=== PATIENT | female | born 1980 | race Caucasian/White ===

== ENCOUNTER 2018-01-22 02:32 | Inpatient (IN) | payer OTHER, MEDICAID, SELFPAY ==
[2018-01-22] VITALS (20 sets, daily range): BP systolic 110–163; BP diastolic 49–100; PULSE 92–128; RESP 14–22; TEMP 36.4–37; O2SAT 97–100; BMI 137.2
--- NOTE | 2018-01-22 02:51 | DI.RAD.S_ITS ---
PROCEDURE: XR CHEST 1V INDICATIONS: elevated blood sugars, concern for DKA TECHNIQUE: One view of the chest was acquired. COMPARISON: [facility], CR, XR CHEST 1V, 08/09/2017, 19:26. FINDINGS: Surgical changes and devices: None. Lungs and pleura: No pleural effusions or pneumothorax. Lungs are clear. Mediastinum: Mediastinal contours appear normal. Heart size is normal. Bones and chest wall: No suspicious bony lesions. Overlying soft tissues appear unremarkable. IMPRESSION: No acute pulmonary process. Dictated by: Heidy Bonner M.D. on 01/22/2018 at 7:57 Approved by: Heidy Bonner M.D. on 01/22/2018 at 7:58
--- NOTE | 2018-01-22 02:56 | PC.NURSE ---
Attempted PIV, unsuccessful. Second RN to attempt.
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
--- NOTE | 2018-01-22 03:19 | PC.NURSE ---
Dr Lucas aware that nursing staff has been unsuccessful in PIV insertion. Lab to attempt to obtain blood specimens.
[2018-01-22 03:51] LABS: pH VBG 7.21 (7.31-7.41)
[2018-01-22 03:52] LABS: HCO3 VBG 10 mmol/L (24-28); Oxygen Saturation VBG 79 % (70-75); PCO2 VBG 23.9 mmHg (45-50); PO2 VBG 51 mmHg (35-45); Total CO2 VBG 10 mmol/L (24-29)
--- NOTE | 2018-01-22 03:53 | PC.NURSE ---
Called outside picc placement company, awaiting for call back with
[2018-01-22 03:57] LABS: Basophils Percent Auto 0.8 % (0-2); Eosinophils Percent Auto 0.4 % (2-4); Hematocrit 38.6 % (36-46); Hemoglobin 11.1 g/dL (12.0-16.0); Lymphocytes Percent Auto 16.6 % (25-40); Mean Corpuscular HGB Conc 28.8 % (30-36); Mean Corpuscular Hemoglobin 24.3 PG (26-34); Mean Corpuscular Volume 84.4 fL (80-100); Monocytes Percent Auto 5.4 % (3-14); Neutrophils Absolute Auto 8200 /uL (3000-5900); Neutrophils Percent Auto 76.8 % (50-75); Platelet Count 470 X10^3/uL (150-400); Red Blood Cell Count 4.58 X10^6/uL (4.0-5.2); Red Cell Distribution Width 18.3 % (11.6-14.8); White Blood Cell Count 10.7 X10^3/uL (4.5-11.0)
[2018-01-22 03:58] LABS: Add Manual Diff / Slide Review SLIDE REVIEW
[2018-01-22 04:05] LABS: Alanine Aminotransferase 133 IU/L (9-52); Albumin 5.1 g/dL (3.5-5.0); Albumin Globulin Ratio 1.6 (1.0-2.8); Alkaline Phosphatase 292 U/L (38-126); Aspartate Aminotransferase 106 IU/L (14-36); BUN Creatinine Ratio 31.4 (6-22); Bilirubin Total 0.4 mg/dL (0.2-1.3); Blood Urea Nitrogen 22 mg/dL (7-17); Calcium 9.9 mg/dL (8.4-10.2); Chloride 96 mmol/L (98-107); Estimated Glomerular Filt Rate > 60.0 mL/min (>60); Globulin 3.1 g/dL (1.7-4.1); HEMOLYSIS < 15 (0-50); Magnesium 2.4 mg/dL (1.6-2.3); Potassium 5.1 mmol/L (3.4-5.1); Sodium 135 mmol/L (137-145); Total Protein 8.2 g/dL (6.3-8.2)
[2018-01-22 04:08] LABS: Ketones (Beta-Hydroxybutyrate) 10.54 mmol/L (<0.27)
--- NOTE | 2018-01-22 04:10 | PC.NURSE ---
Pt had episode of incontinence. Linen changed.
[2018-01-22 04:20] LABS: Carbon Dioxide 6 mmol/L (22-32); Glucose 725 mg/dL (70-100)
[2018-01-22 04:22] LABS: Anisocytosis 2+
--- NOTE | 2018-01-22 04:56 | PC.NURSE ---
Second call placed to [facility] for line placement. No ETA given at this time. Awaiting call back.
--- NOTE | 2018-01-22 05:02 | PC.NURSE ---
Unable to complete med rec at this time. Pt very drowsy and unable to stay awake.
--- NOTE | 2018-01-22 05:06 | PC.NURSE ---
IV nurse will be here in an 1.5-2 hours. ETA 6:30-7:00.
[2018-01-22] MEDS: INSULIN ASPART 100 UNIT/ML 10ML VIAL 20 UNIT SUBCUT (05:11)
[2018-01-22] MEDS: ONDANSETRON 4 MG/2 ML INJ IV (06:03)
--- NOTE | 2018-01-22 06:03 | PC.NURSE ---
Pt vomited large amount of liquid with partially digested food on floor after PO challenge. Pt was medicated with 4 mg Zofran in L glute.
--- NOTE | 2018-01-22 06:49 | PC.NURSE ---
Linens changed for incontinence. Pt appeared to be even more obtunded. Attempted to stimulate pt with capillary pressure, no response. Attempted supraoribtal pressure next, no response. Pt finally responded to sternal stimulation. Pt began flailing arms and called this nurse a cunt. Informed pt that behavior and calling staff names is not appropriate.
--- NOTE | 2018-01-22 06:57 | PC.NURSE ---
PICC RN is here to attempt line placement.
[2018-01-22] MEDS: LORazepam 2 MG/ML SYRINGE IV ×4 (07:45→23:29)
--- NOTE | 2018-01-22 07:49 | PC.NURSE ---
precision able to insert right upper arm picc line, blood drawn for repeat labs. pt remain alert and awake, requesting water to drink, wet sponge provided, pt wanting more.
[2018-01-22 08:05] LABS: BUN Creatinine Ratio 32.9 (6-22); Blood Urea Nitrogen 23 mg/dL (7-17); Carbon Dioxide 11 mmol/L (22-32); Chloride 105 mmol/L (98-107); Estimated Glomerular Filt Rate > 60.0 mL/min (>60); Glucose 360 mg/dL (70-100); HEMOLYSIS < 15 (0-50); Potassium 4.6 mmol/L (3.4-5.1); Sodium 145 mmol/L (137-145)
[2018-01-22] MEDS: SODIUM CHLORIDE 0.9% 1,000 ML 1000 ML IV (08:36)
--- NOTE | 2018-01-22 08:40 | PC.NURSE ---
Addendum entered by Sarahi Mccarthy R.N. 01/22/18 13:19: 1000 pt agitated and cussing. incontinent of urine and refused to be cleaned up. demanding ice and water. 1200 pt pleasant, apologizing for earlier behavior. dilaudid given for toe pain and ativan IV given. 1315 pt now somulent, calm. HOB elevated 30 degrees. denies need to urinate. sinus tach, HR 110. right 3rd toe wound cultured and sent. Original Note: Dr. Avalos in to see pt. pt breathing heavy, speaks in broken sentences. occasional jerky movements. double lumen PICC ELOISE. labs drawn. NS 1 liter iv bolus infusing. Ativan 2mg IV given for anxiety. pt sedated now, awakens to touch and name called. reports extreme pain right 3rd toe, and mouth dryness.
[2018-01-22] MEDS: INSULIN REGULAR, HUMAN 100 UNIT in SODIUM CHLORIDE 0.9% 100 ML 6 ML IV (08:54)
[2018-01-22] MEDS: SODIUM CHLORIDE 0.9% 1,000 ML 150 ML IV (08:54)
--- NOTE | 2018-01-22 09:02 | PM.DS.1 ---
History of Present Illness Chief complaint: Dizziness/high BS Discharge Providers Date of admission: 01/22/18 04:54 Consults: 01/22/18 08:34 Consult to Dietitian, Adult Routine Comment: smokes meth Reason For Exam: malnutrition Discharge provider: Iliana Avalos MD Exam Vital Signs (past 8 hours): - 01/22/18 02:43 01/22/18 04:00 01/22/18 05:03 Temperature 98.6 F Pulse Rate 128 H 128 H 124 H Respiratory Rate 20 21 20 Blood Pressure 111/49 L Blood Pressure [Left Arm] 140/85 138/82 Pulse Oximetry 100 99 98 01/22/18 06:00 01/22/18 07:35 Temperature 97.8 F Pulse Rate 122 H 115 H Respiratory Rate 22 Blood Pressure 110/70 Blood Pressure [Left Arm] 163/100 H Pulse Oximetry 98 98 Oxygen Delivery Method Room Air Objective Labs Result Diagrams: 01/22/18 03:47 01/22/18 07:45 Labs: Laboratory Results - last 24 hr 01/22/18 01/22/18 01/22/18 03:40 03:47 03:47 WBC 10.7 RBC 4.58 Hgb 11.1 L Hct 38.6 MCV 84.4 MCH 24.3 L MCHC 28.8 L RDW 18.3 H Plt Count 470 H Neut % (Auto) 76.8 H Lymph % (Auto) 16.6 L [place] % (Auto) 5.4 Eos % (Auto) 0.4 L Baso % (Auto) 0.8 Neut # (Auto) 8200 H RBC Morphology See below Anisocytosis 2+ H VBG pH 7.21 L VBG pCO2 23.9 L VBG pO2 51 H VBG HCO3 10 L VBG Total CO2 10 L VBG O2 Saturation 79 H VBG Base Excess -18.0 L Sodium 135 L Potassium 5.1 Chloride 96 L Carbon Dioxide 6 L* BUN 22 H Creatinine 0.70 Estimated GFR > 60.0 BUN/Creatinine Ratio 31.4 H Glucose 725 H* Calcium 9.9 Phosphorus 4.0 Magnesium 2.4 H Total Bilirubin 0.4 AST 106 H ALT 133 H Alkaline Phosphatase 292 H Total Protein 8.2 Albumin 5.1 H Globulin 3.1 Albumin/Globulin Ratio 1.6 Ketones 10.54 H 01/22/18 07:45 WBC RBC Hgb Hct MCV MCH MCHC RDW Plt Count Neut % (Auto) Lymph % (Auto) [place] % (Auto) Eos % (Auto) Baso % (Auto) Neut # (Auto) RBC Morphology Anisocytosis VBG pH VBG pCO2 VBG pO2 VBG HCO3 VBG Total CO2 VBG O2 Saturation VBG Base Excess Sodium 145 D Potassium 4.6 Chloride 105 Carbon Dioxide 11 L BUN 23 H Creatinine 0.70 Estimated GFR > 60.0 BUN/Creatinine Ratio 32.9 H Glucose 360 H D Calcium 10.0 Phosphorus Magnesium Total Bilirubin AST ALT Alkaline Phosphatase Total Protein Albumin Globulin Albumin/Globulin Ratio Ketones Discharge Plan Discharge Med Rec/Prescriptions Prescriptions: No Action metoclopramide HCl 10 MG tablet 10 mg PO TIDAC PRNQty: 90 RF: 1 insulin glargine [Lantus Solostar U-100 Insulin] 100 UNIT/1 ML insulin pen 70 unit SQ BID Qty: 0 RF: 0 methocarbamol 500 MG tablet 500 - 1,000 mg PO Q6H Qty: 30 RF: 3 fluticasone 16 GM spray,suspension 0.05 mg Intranasal Q DAY PRN PRNQty: 1 RF: 5 Syringes: 1cc Insulin Syringes with [place] SQ 5XD Qty: 100 RF: 3 duloxetine 20 MG capsule,delayed release(DR/EC) 40 mg PO QDAY Qty: 0 RF: 0 insulin aspart U-100 [Novolog U-100 Insulin aspart] 100 UNIT/1 ML solution 10 unit SQ TIDCC Qty: 0 RF: 0 sulfamethoxazole-trimethoprim 800 MG/160 MG tablet 2 tab PO BID Qty: 40 RF: 0 clonidine HCl 0.1 MG tablet 0.2 mg PO BID Qty: 60 RF: 0 gabapentin [Neurontin] 600 MG tablet 600 mg PO TID Qty: 90 RF: 0 oxycodone 5 MG tablet 10 mg PO QIDP PRNQty: 100 RF: 0 insulin glargine [Lantus Solostar U-100 Insulin] 100 unit/mL (3 mL) insulin pen 70 unit SUBCUT BEDTIME Qty: 3 RF: 0 Discharge Data Attending Provider: Iliana Avalos Admit Date/Time: 01/22/18 04:54 Quality VTE Deep Vein Thrombosis/Pulmonary Embolism Present on Admission: No
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
[2018-01-22] MEDS: ENOXAPARIN 40 MG/0.4 ML SYRINGE SUBCUT (10:01)
[2018-01-22] MEDS: CLINDAMYCIN 300 MG in DEXTROSE 5 % IN WATER 50 ML 104 ML IV ×2 (10:01→17:00)
[2018-01-22] MEDS: POTASSIUM CHLORIDE 20 MEQ in SODIUM CHLORIDE 0.9% 250 ML 130 ML IV (11:09)
[2018-01-22] MEDS: NICOTINE 7 MG PATCH TOP (11:10)
[2018-01-22] MEDS: DEXTROSE 5%-0.45% NS 1,000 ML 150 ML IV (11:11)
[2018-01-22] MEDS: MEPERIDINE 25 MG/ML SYRINGE IV ×2 (11:43→18:48)
--- NOTE | 2018-01-22 11:59 | CM.DPNOTE ---
DCP Chart Review Patient is a 37 year old female who was admitted to ICU today 01/22/18 for DKA. Pt has [facility] and [facility] for insurance and her PCP is not listed. EMR was reviewed. Per MD, pt may have right toe cellulitis and currently receiving IV-Abx and Ativan for positive UDS for methamphetamines. SW attempted to meet bedside with pt and per RN pt was given a dose of Ativan and not alert and oriented enough to participate in bedside assessment. SW observed pt who was not very agreeable with staff care and began to swear at RN for her NPO status. Pt groggy and still incontinent. Per RN, pt informed MD at time of admit that she is still homeless. Pt has a long hx of homelessness with sometimes a tent or camp in [place] where she has stayed. At last admit, pt declined any community resources including CD treatment and support. Plan: SW to follow closely for bedside assessment when pt more medically appropriate to participate in goal directed discussion regarding housing, CD treatment, and further community resources. YNES Khan
[2018-01-22 12:21] LABS: Blood Urea Nitrogen 21 mg/dL (7-17); Calcium 8.4 mg/dL (8.4-10.2); Carbon Dioxide 17 mmol/L (22-32); Chloride 109 mmol/L (98-107); Estimated Glomerular Filt Rate > 60.0 mL/min (>60); Glucose 164 mg/dL (70-100); HEMOLYSIS < 15 (0-50); Potassium 4.2 mmol/L (3.4-5.1); Sodium 145 mmol/L (137-145)
[2018-01-22] MEDS: METOCLOPRAMIDE 10 MG/2 ML INJ IV (12:46)
[2018-01-22] MEDS: HYDROMORPHONE 0.5 MG INJ IV ×3 (12:54→21:21)
[2018-01-22] MEDS: DEXTROSE 10 % IN WATER 1,000 ML 56 ML IV (14:40)
[2018-01-22 16:52] LABS: Blood Urea Nitrogen 18 mg/dL (7-17); Calcium 8.2 mg/dL (8.4-10.2); Carbon Dioxide 21 mmol/L (22-32); Chloride 107 mmol/L (98-107); Estimated Glomerular Filt Rate > 60.0 mL/min (>60); Glucose 133 mg/dL (70-100); HEMOLYSIS < 15 (0-50); Potassium 3.9 mmol/L (3.4-5.1); Sodium 142 mmol/L (137-145)
--- NOTE | 2018-01-22 19:11 | PC.NURSE ---
The patient asked for her personal belongings due to requesting to leave against medical advance. Upon giving her the bag with her clothing in it, she retrieved cookie from the bag, ate cookie, and took a syringe from her clothing. I asked her to place it back in the bag, notified nurse. Patient reluctant to put the syringe down. Proceeded to use needle from syringe to poke a scab on her upper left thigh.
[2018-01-22 20:12] LABS: BUN Creatinine Ratio 37.5 (6-22); Blood Urea Nitrogen 15 mg/dL (7-17); Calcium 8.1 mg/dL (8.4-10.2); Carbon Dioxide 21 mmol/L (22-32); Chloride 104 mmol/L (98-107); Estimated Glomerular Filt Rate > 60.0 mL/min (>60); Glucose 173 mg/dL (70-100); HEMOLYSIS < 15 (0-50); Potassium 3.1 mmol/L (3.4-5.1); Sodium 140 mmol/L (137-145)
[2018-01-22] MEDS: POTASSIUM CHLORIDE 40 MEQ in SODIUM CHLORIDE 0.9% 500 ML 130 ML IV (21:10)
[2018-01-22] MEDS: DEXTROSE 5%-0.45% NS 1,000 ML 84 ML IV (22:30)
--- NOTE | 2018-01-22 22:36 | PC.NURSE ---
Pt remains on insulin gtt per protocol. Anion gap currently 14, next lab draw at midnight. BG 112. Per , notify MD when gap <12 in order to transition to subq insulin. Pt verbally aggressive with staff all shift, name calling and throwing cups of ice, yelling into the halls. Threatening to leave AMA because I haven't eaten in 2 fing days. When pt had her belongings she found a half cookie in her purse which she consumed. Nursing educated on diet restrictions. Nursing cont to reinforce criteria that must be met in order to advance diet. Pt also grabbed insulin needle out of her belongings and proceeded to poke at a lesion on her leg in order to remove the pus. This aligner typewriter asked pt to stop to which she replied no, she then bent the needle off the syringe and asked us to hand her the sharps container so she could dispose of it. Staff having to continually remind pt of diet criteria. Called Dr. Olivier in order to discuss case, received telephone order that pt could have broth and water if requested. Supplied pt with chicken broth and water as requested. Also c/o pain 10/10 to right 3rd toe, given PRN pain medication as ordered with little stated relief although pt nodding off to sleep throughout shift.
[2018-01-23] VITALS (7 sets, daily range): BP systolic 142–151; BP diastolic 81–105; PULSE 93–103; RESP 14–20; TEMP 36.8–37.1; O2SAT 97
[2018-01-23] MEDS: CLINDAMYCIN 300 MG in DEXTROSE 5 % IN WATER 50 ML 104 ML IV ×2 (01:17→08:29)
[2018-01-23 01:20] LABS: Blood Urea Nitrogen 9 mg/dL (7-17); Calcium 7.1 mg/dL (8.4-10.2); Carbon Dioxide 21 mmol/L (22-32); Chloride 109 mmol/L (98-107); Estimated Glomerular Filt Rate > 60.0 mL/min (>60); Glucose 117 mg/dL (70-100); HEMOLYSIS < 15 (0-50); Potassium 3.8 mmol/L (3.4-5.1); Sodium 137 mmol/L (137-145)
--- NOTE | 2018-01-23 02:14 | PC.NURSE ---
Addendum entered by Kacey Ge R.N. 01/23/18 07:04: Verbal abuse continues. Pt throwing everything on her tray on the floor and at staff. She requests food multiple times. Educated patient on her most recent blood sugar of 353 and her diet order. Pt agitated stating I'll get it my fucking self then! Dr. Olivier aware of blood sugar, one time dose of Novolog 5 units given SQ per orders and will resume ACHS CBG checks and SSI. Original Note: 2320 Pt yelling for staff from room. Pt asking for a sandwich and jello. Reminded pt she is NPO but can have broth and water. Disgruntled, she accepted broth. Immediately after chugging broth pt c/o that her cup is empty and when informed she just drank it she called this RN a cunt. Boundaries set, informed that name calling will not be tolerated. Pt states this is bullshit. Pt assessed, VSS, insulin GTT continued at 0.5 units/hour. 0000 CBG 136, no change to insulin GTT. Pt continues with name calling and verbal abuse. Staff continues to set boundaries. Continues to ask for food despite knowledge of diet order, states staff is being unfair. Incontinent of large amount of stool, angry that staff took time to put on PPE prior to entering room stating I'll just sit here in my own shit then! You bitches are no help. While providing incontinence care pt throwing two stool soiled wipes onto floor. Asked pt not to throw things. Refused gown, refused blankets. Refusing vitals signs and continuous pulse oximetry. 0200 CBG 129, Anion gap 7. Corrected Ca+ 6.06. Dr. Olivier made aware. Orders to stop insulin GTT, start pts regular Novolog SSI, Regular diet and a change in IVF to 1/2NS @ 85mL/hour. Will check CBG every 2 hours. Pt currently asleep in NAD. Will monitor closely.
[2018-01-23] MEDS: SODIUM CHLORIDE 0.45% 1,000 ML 85 ML IV (02:50)
[2018-01-23] MEDS: HYDROMORPHONE 0.5 MG INJ IV ×3 (05:39→11:50)
[2018-01-23] MEDS: LORazepam 2 MG/ML SYRINGE IV (05:39)
[2018-01-23 06:09] LABS: Add Manual Diff / Slide Review NO; Basophils Percent Auto 0.8 % (0-2); Eosinophils Percent Auto 1.5 % (2-4); Hematocrit 31.6 % (36-46); Hemoglobin 9.9 g/dL (12.0-16.0); Lymphocytes Percent Auto 20.8 % (25-40); Mean Corpuscular HGB Conc 31.2 % (30-36); Mean Corpuscular Hemoglobin 24.1 PG (26-34); Mean Corpuscular Volume 77.4 fL (80-100); Monocytes Percent Auto 7.5 % (3-14); Neutrophils Absolute Auto 5500 /uL (3000-5900); Neutrophils Percent Auto 69.4 % (50-75); Platelet Count 380 X10^3/uL (150-400); Red Blood Cell Count 4.09 X10^6/uL (4.0-5.2); Red Cell Distribution Width 17.4 % (11.6-14.8); White Blood Cell Count 7.9 X10^3/uL (4.5-11.0)
[2018-01-23 06:10] LABS: Alanine Aminotransferase 126 IU/L (9-52); Albumin 3.2 g/dL (3.5-5.0); Albumin Globulin Ratio 1.3 (1.0-2.8); Alkaline Phosphatase 235 U/L (38-126); Aspartate Aminotransferase 185 IU/L (14-36); Bilirubin Total 0.4 mg/dL (0.2-1.3); Blood Urea Nitrogen 9 mg/dL (7-17); Calcium 7.4 mg/dL (8.4-10.2); Carbon Dioxide 18 mmol/L (22-32); Chloride 106 mmol/L (98-107); Estimated Glomerular Filt Rate > 60.0 mL/min (>60); Globulin 2.5 g/dL (1.7-4.1); Glucose 350 mg/dL (70-100); HEMOLYSIS < 15 (0-50); Potassium 4.3 mmol/L (3.4-5.1); Sodium 138 mmol/L (137-145); Total Protein 5.7 g/dL (6.3-8.2)
[2018-01-23] MEDS: INSULIN ASPART 100 UNIT/ML INSULN PEN SUBCUT ×5 (06:35→20:59)
[2018-01-23] MEDS: INSULIN GLARGINE 100 UNIT/ML 3ML PEN 15 UNIT SUBCUT (08:06)
[2018-01-23] MEDS: ENOXAPARIN 40 MG/0.4 ML SYRINGE SUBCUT (08:07)
[2018-01-23] MEDS: NICOTINE 7 MG PATCH TOP (08:08)
--- NOTE | 2018-01-23 08:14 | P.PN_ITS ---
Subjective Date Patient Seen: 01/23/18 Time Patient Seen: 08:09 Interval history: FOLLOW UP ON DKA Patient seen at bedside. She is very mean and agitated. Does not want to talk to staff. Throwing things. She was transitioned to PO diet yesterday. Wants food and refuses to talk until she gets food. She was able to tell me she is on Lantus 70U BID and sliding scale. This morning BG elevated at 350. Exam Vital Signs (past 8 hours): - 01/23/18 01:00 01/23/18 02:58 01/23/18 04:00 Temperature Pulse Rate 98 H 102 H 103 H Respiratory Rate 14 16 20 Blood Pressure 146/89 H Pulse Oximetry 97 01/23/18 05:00 01/23/18 06:00 01/23/18 08:02 Temperature 98.3 F Pulse Rate 93 H 97 H 97 H Respiratory Rate 16 20 16 Blood Pressure 151/90 H 146/81 H 147/105 H Pulse Oximetry 97 97 97 Oxygen Delivery Method Room Air Oxygen Flow Rate 0 Narrative Exam Narrative: General: Disheveled, angry HEENT: PERRLA bilaterally Neck: Supple, no LAD, no JVD CV: Regular rate rhythm, no murmurs, no gallops Respiratory: Clear to auscultation bilaterally no wheezing, no rhonchi, no crackles GI: Positive bowel sounds in all quadrants, no organomegaly, soft nontender Musculoskeletal: Patient moves all extremities without difficulty. Amputation of 1/2 of 1st right foot digit Skin: Right 3rd foot digit erythematous, swollen, tender to palpation. 1 cm purulent ulcer noted on the bottom side of the digit Neuro: No focal deficit Psych: Angry. Requesting food Objective Labs Result Diagrams: 01/23/18 05:45 01/23/18 05:45 Labs: Laboratory Results - last 24 hr 01/22/18 01/22/18 01/22/18 08:00 12:00 16:30 WBC RBC Hgb Hct MCV MCH MCHC RDW Plt Count Neut % (Auto) Lymph % (Auto) [place] % (Auto) Eos % (Auto) Baso % (Auto) Neut # (Auto) Sodium 145 142 Potassium 4.2 3.9 Chloride 109 H 107 Carbon Dioxide 17 L 21 L BUN 21 H 18 H Creatinine 0.50 L 0.40 L Estimated GFR > 60.0 > 60.0 BUN/Creatinine Ratio 42.0 H 45.0 H Glucose 164 H D 133 H Calcium 8.4 8.2 L Total Bilirubin AST ALT Alkaline Phosphatase Total Protein Albumin Globulin Albumin/Globulin Ratio Nasal Screen MRSA (PCR) Positive for mrsa H 01/22/18 01/23/18 01/23/18 19:45 01:00 05:45 WBC 7.9 RBC 4.09 Hgb 9.9 L Hct 31.6 L MCV 77.4 L D MCH 24.1 L MCHC 31.2 RDW 17.4 H Plt Count 380 Neut % (Auto) 69.4 Lymph % (Auto) 20.8 L [place] % (Auto) 7.5 Eos % (Auto) 1.5 L Baso % (Auto) 0.8 Neut # (Auto) 5500 Sodium 140 137 Potassium 3.1 L 3.8 Chloride 104 109 H Carbon Dioxide 21 L 21 L BUN 15 9 Creatinine 0.40 L 0.30 L Estimated GFR > 60.0 > 60.0 BUN/Creatinine Ratio 37.5 H 30.0 H Glucose 173 H 117 H Calcium 8.1 L 7.1 L Total Bilirubin AST ALT Alkaline Phosphatase Total Protein Albumin Globulin Albumin/Globulin Ratio Nasal Screen MRSA (PCR) 01/23/18 05:45 WBC RBC Hgb Hct MCV MCH MCHC RDW Plt Count Neut % (Auto) Lymph % (Auto) [place] % (Auto) Eos % (Auto) Baso % (Auto) Neut # (Auto) Sodium 138 Potassium 4.3 Chloride 106 Carbon Dioxide 18 L BUN 9 Creatinine 0.50 L Estimated GFR > 60.0 BUN/Creatinine Ratio 18.0 Glucose 350 H D Calcium 7.4 L Total Bilirubin 0.4 AST 185 H ALT 126 H Alkaline Phosphatase 235 H Total Protein 5.7 L Albumin 3.2 L Globulin 2.5 Albumin/Globulin Ratio 1.3 Nasal Screen MRSA (PCR) Assessment & Plan Plan: Assessment/Plan Narrative: 1. Diabetic ketoacidosis -likely due to poor management of diabetes with insulin, as patient is homeless -blood glucose this morning elevated at 354 and AG is up to 14 -patient was transitioned to PO diet yesterday and refuses insulin drip -will start Lantus 15U BID for now and give medium dose sliding scale -repeat BMP Q4H -continue IVF 2. Methamphetamine abuse -monitor for withdrawals, treat symptomatically -Ativan as needed, Zofran as needed 3. Homelessness -social work consult Patient wishes to be full code 20 min spent evaluating in providing care for this patient Quality VTE Deep Vein Thrombosis/Pulmonary Embolism Present on Admission: No
[2018-01-23] MEDS: ACETAMINOPHEN 325 MG TABLET 650 MG PO ×4 (08:56→23:00)
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
[2018-01-23] MEDS: MEPERIDINE 25 MG/ML SYRINGE IV (09:51)
--- NOTE | 2018-01-23 10:14 | CM.DANOTE ---
Discharge Planning/Care Management DCP/Cont Attempted bedside assessment with patient: Patient had just finished eating breakfast. DINING ROOM HOST/HOSTESS introduced self and role and patient stated she did not want to talk to DINING ROOM HOST/HOSTESS and requested DINING ROOM HOST/HOSTESS leave room. Reviewed EMR: patient currently on IV abx for cellulites on foot. Patient's blood glucose remains elevated with patient refusing insulin drip. Patient currently on Ativan to assist with withdrawal from methamphetamine abuse. Patient's behavior remains a concern, to include throwing items and verbal abuse. Patient has threaten to leave AMA. Plan: Patient is currently homeless with IVDU. Patient has declined DINING ROOM HOST/HOSTESS interventions at this time. Anticipate patient would need medicaid transportation at discharge. Will need to follow up with patient at time of discharge to see if patient is willing to engage in conversation regarding housing and CD resources. CM Discharge Assessment Start: 01/23/18 10:12 Freq: Status: Active Protocol: Document 01/23/18 10:12 (Rec: 01/23/18 10:13 [email or web address]) Discharge Planning Assessment Assigned Transportation Clerk YNES Joaquin Advance Directives? No History Provided By Patient Medical Record Prior Living Arrangements Homeless Barriers to Discharge Yes Comment IV drug use Discharge Plan Home Transportation Arrangement Medicaid transportation Whiteboard Updated in Patient Room with No name and ext. # of Transportation Clerk Comment Patient did not want SW in room. Review Status In Process Next Review Type Continued Stay Review
[2018-01-23 10:23] LABS: Blood Urea Nitrogen 10 mg/dL (7-17); Calcium 7.7 mg/dL (8.4-10.2); Carbon Dioxide 20 mmol/L (22-32); Chloride 103 mmol/L (98-107); Estimated Glomerular Filt Rate > 60.0 mL/min (>60); Glucose 281 mg/dL (70-100); HEMOLYSIS < 15 (0-50); Potassium 4.4 mmol/L (3.4-5.1); Sodium 134 mmol/L (137-145)
--- NOTE | 2018-01-23 10:31 | PC.NURSE ---
pt intermittently sleeps. water given to pt and pt states she accidentally dumped it in bed. requesting more food. This RN told her- lunch will be at 12-1230. Requesting more pain med for toe pain. Demerol IV given earlier; Dilaudid and Ativan not due yet. pt pulling at IV line when OOB. IV disconnected from PICC line.
[2018-01-23] MEDS: LORazepam 2 MG/ML SYRINGE 1 MG IV (11:41)
--- NOTE | 2018-01-23 12:32 | PC.NURSE ---
Addendum entered by Miranda Hannah R.N. 01/23/18 15:11: 14:30- pt asking for more food, pain meds. Brought pt Gabapentin and Toradol, V-8 juice. Pt angry that dilaudid discontinued and nurse will not bring her food. Pt started using profanity, calling nurse foul names. Updated chief security and safety officer that pt said she was going to start throwing things and breaking things. Original Note: juan antonio note pt has been calm, cooperative. Pt asking for broth and 2 crackers before lunch. Blood sugar was 303. Lunch tray had a whole turkey sandwich with lettuce tomato pickle onions, sorbet, salad with ranch drsg. Pt also requested cottage cheese, which was supplied. Medicated pt with IV dilaudid and ativan before lunch. Pt also asked for soup, after meal tray delivered. Told pt it was too late for more orders, to order it for dinner. Pt assisted to order dinner. Pt now resting quietly in bed, watching TV.
[2018-01-23 14:25] LABS: Blood Urea Nitrogen 12 mg/dL (7-17); Calcium 8.2 mg/dL (8.4-10.2); Carbon Dioxide 23 mmol/L (22-32); Chloride 101 mmol/L (98-107); Estimated Glomerular Filt Rate > 60.0 mL/min (>60); Glucose 265 mg/dL (70-100); HEMOLYSIS 20 (0-50); Potassium 4.5 mmol/L (3.4-5.1); Sodium 136 mmol/L (137-145)
--- NOTE | 2018-01-23 15:47 | PC.NURSE ---
Addendum entered by Bettie Gomez R.N. 01/23/18 20:43: found pt to be digging her hand/arm into the sharps container in the room- she had in her hand an empty saline flush and small syringe plunger as if from insulin type syringe- had EVS COME REMOVE SHARPS CONTAINER FROM ROOM Original Note: pt verbally abusive to staff including myself upon my arrival to unit. She is using profanity and throwing things in the room such as ice h20, broth etc. she was threateneing to leave AMA as in her words you're not feeding me and I am in excruciating pain reviewing medication regime with off going RN as well as the time of meals and the importance of limiting snacks verbally and written on white board with attempting patient involvement- after she demonstrated that she was attempting to remove her picc line- as we stated several times that it would need to be removed prior to her leaving AMA-this RN removed picc line in a clean fashion and placed dressing on site- pt continues to be foul mouthed and verbally as well (attempted ) physically abusive to staff
[2018-01-23] MEDS: GABAPENTIN 600 MG TABLET PO ×2 (16:15→21:06)
[2018-01-23] MEDS: INSULIN GLARGINE 100 UNIT/ML 3ML PEN 25 UNIT SUBCUT (21:01)
[2018-01-23] MEDS: TRIMETH/SULFA 160/800 (DS) TABLET 1 TAB PO (21:07)
[2018-01-24 00:39] VITALS: BP 141/78; PULSE 93; RESP 17; TEMP 36.6; O2SAT 95
[2018-01-24] MEDS: ACETAMINOPHEN 325 MG TABLET 650 MG PO ×4 (02:48→18:59)
--- NOTE | 2018-01-24 06:32 | PC.NURSE ---
Patient dozed intermittently, mostly calm and cooperative, still requesting food approximately 2 hrs, would give her mostly protein snacks with few carbs, drinking plenty of water, Tylenol given for toe pain. Linen changed twice for diaphoresis.
[2018-01-24] MEDS: INSULIN ASPART 100 UNIT/ML INSULN PEN SUBCUT ×4 (07:52→20:34)
[2018-01-24] MEDS: DULOXETINE 20 MG CAPSULE 40 MG PO (07:53)
[2018-01-24] MEDS: GABAPENTIN 600 MG TABLET PO ×3 (07:54→20:32)
[2018-01-24] MEDS: NICOTINE 7 MG PATCH TOP (07:54)
--- NOTE | 2018-01-24 07:57 | PM.PN.1 ---
Subjective Date Patient Seen: 01/24/18 Time Patient Seen: 07:58 Interval history: FOLLOW UP ON DKA and R foot cellulitis Patient seen at bedside. Yesterday patient was very angry and pulled out her PICC line. Her abx were switched to PO bactrim. She was told she will not get any more pain medications other than tylenol. This morning she is complaining of pain in her R foot. I suspect a lot of it has to do with substance abuse, but will consider better pain management. Exam Vital Signs (past 8 hours): - 01/24/18 00:39 Temperature 97.8 F Pulse Rate 93 H Respiratory Rate 17 Blood Pressure 141/78 H Pulse Oximetry 95 Oxygen Delivery Method Room Air Oxygen Flow Rate 0 Narrative Exam Narrative: General: NAD, AAOx3 HEENT: PERRLA bilaterally Neck: Supple, no LAD, no JVD CV: Regular rate rhythm, no murmurs, no gallops Respiratory: Clear to auscultation bilaterally no wheezing, no rhonchi, no crackles GI: Positive bowel sounds in all quadrants, no organomegaly, soft nontender Musculoskeletal: Patient moves all extremities without difficulty. Amputation of 1/2 of 1st right foot digit Skin: Right 3rd foot digit erythematous, swollen, tender to palpation but improving. 1 cm purulent ulcer noted on the bottom side of the digit, healing Neuro: No focal deficit Psych: more pleasant this morning. cooperative Objective Labs Result Diagrams: 01/23/18 05:45 01/23/18 13:42 Labs: Laboratory Results - last 24 hr 01/23/18 01/23/18 10:05 13:42 Sodium 134 L 136 L Potassium 4.4 4.5 Chloride 103 101 Carbon Dioxide 20 L 23 BUN 10 12 Creatinine 0.40 L 0.40 L Estimated GFR > 60.0 > 60.0 BUN/Creatinine Ratio 25.0 H 30.0 H Glucose 281 H 265 H Calcium 7.7 L 8.2 L Assessment & Plan Plan: Assessment/Plan Narrative: 1. Diabetic ketoacidosis -likely due to poor management of diabetes with insulin, as patient is homeless -blood glucose continues to be elevated but gap is closed -increased Lantus to 55U BID, as patient's home dose is 70U BID. Continue high dose sliding scale -diabetic diet 2. Methamphetamine abuse -monitor for withdrawals, treat symptomatically 3. Homelessness -social work consult 4. R foot 3rd digit cellulitis - Ulcer is healing, swelling decreasing - wound cultures showed MRSA and strep agalactiae. Blood cultures negative - Was initially on Clindamycin IV, but pulled out her PICC line. So now she is on Bactrim PO BID - Wound care on board, will follow up - Tylenol/ Oxycodone for pain control but will repeat LFT levels as they have been elevated. If still high, will change pain management 5. LFT elevation - Likely due to chronic methamphetamine abuse - continue to monitor for improvement Patient wishes to be full code 20 min spent evaluating in providing care for this patient Quality VTE Deep Vein Thrombosis/Pulmonary Embolism Present on Admission: No
[2018-01-24 08:00] VITALS: BP 145/95; PULSE 82; RESP 16; TEMP 36.6; O2SAT 97
[2018-01-24] MEDS: INSULIN GLARGINE 100 UNIT/ML 3ML PEN 55 UNIT SUBCUT (08:03)
[2018-01-24] MEDS: TRIMETH/SULFA 160/800 (DS) TABLET 1 TAB PO ×2 (08:16→20:32)
[2018-01-24 08:47] LABS: Add Manual Diff / Slide Review NO; Basophils Percent Auto 0.9 % (0-2); Eosinophils Percent Auto 1.1 % (2-4); Hematocrit 35.1 % (36-46); Hemoglobin 10.9 g/dL (12.0-16.0); Lymphocytes Percent Auto 30.8 % (25-40); Mean Corpuscular HGB Conc 31.1 % (30-36); Mean Corpuscular Hemoglobin 23.9 PG (26-34); Mean Corpuscular Volume 76.8 fL (80-100); Neutrophils Absolute Auto 5200 /uL (3000-5900); Neutrophils Percent Auto 60.2 % (50-75); Platelet Count 389 X10^3/uL (150-400); Red Blood Cell Count 4.57 X10^6/uL (4.0-5.2); Red Cell Distribution Width 17.4 % (11.6-14.8); White Blood Cell Count 8.6 X10^3/uL (4.5-11.0)
[2018-01-24 08:58] LABS: Alanine Aminotransferase 98 IU/L (9-52); Albumin 3.9 g/dL (3.5-5.0); Albumin Globulin Ratio 1.4 (1.0-2.8); Alkaline Phosphatase 266 U/L (38-126); Aspartate Aminotransferase 50 IU/L (14-36); Bilirubin Total 0.4 mg/dL (0.2-1.3); Blood Urea Nitrogen 21 mg/dL (7-17); Calcium 9.2 mg/dL (8.4-10.2); Carbon Dioxide 23 mmol/L (22-32); Chloride 95 mmol/L (98-107); Estimated Glomerular Filt Rate > 60.0 mL/min (>60); Globulin 2.8 g/dL (1.7-4.1); Sodium 132 mmol/L (137-145); Total Protein 6.7 g/dL (6.3-8.2)
[2018-01-24 08:59] LABS: Potassium 5.6 mmol/L (3.4-5.1)
[2018-01-24 09:07] LABS: HEMOLYSIS < 15 (0-50)
[2018-01-24 09:09] LABS: Glucose 489 mg/dL (70-100)
[2018-01-24] MEDS: INSULIN ASPART 100 UNIT/ML INSULN PEN 15 UNIT SUBCUT (09:28)
--- NOTE | 2018-01-24 09:35 | PC.NURSE ---
Addendum entered by Mikaela Sams R.N. 01/24/18 14:09: Patient currently resting quietly in room. Cooperative through lunch time with no profanity, saying thank you and please. Sammie QUICK met at bedside with this commercial real estate underwriter prior to lunch - reiterated to patient that profanity and yelling at staff is unacceptable. Patient acknowledged understanding at that time. Original Note: Day Shift Note Pt initially calm and cooperative on AM assessment. Ambulated to shower and bathed independently. Critical glucose on lab called (489), blood glucose rechecked and was 406 - reported to Dr. Avalos who ordered one time dose of 15 un. aspart insulin. Pt requesting more sandwiches - high blood glucose explained to pt along with MD order to hold off on further food until lunch. Pt became upset at this time, yelling profanity at staff and yelling liar, liar. Repeatedly using call light and yelling profanities while raising middle finger at staff. Unable to de-escalate pt at this time.
[2018-01-24] MEDS: OXYCODONE ER 10 MG TAB PO ×2 (10:48→21:07)
[2018-01-24 11:47] VITALS: RESP 16; TEMP 36.6
--- NOTE | 2018-01-24 16:07 | CM.DANOTE ---
DCP/Continued: Reviewed chart. Received call from ICU/RN reporting that patient preparing to leave AMA. Per nursing documentation, patient has been yelling at the nurses very demanding of staff. LINUX DEVOPS ENGINEER and RN met with patient explained LINUX DEVOPS ENGINEER role. Patient reports that she is angry because she is in pain. She reports that she does not feel that her pain or anxiety are being managed appropriately. Plus patient reports that she is not being fed enough. Patient complaining that she is hungry. Notified patient that all orders for food and medication come directly from the MD and that staff follows instructions given. Currently MD attempting to get patient's blood sugars down therefore, she is on modified diabetic diet. Patient aware that this process will be uncomfortable but will need to happen in order for improvement. LINUX DEVOPS ENGINEER notified patient that she needed to help up help her this includes being respectful to [facility] staff and following [facility] policies. Patient became teary during conversation and reports that she is homeless and has been trying to get off of meth. Patient reports having terrible pain in her foot and always has anxiety. Patient with h/o noncompliant diabetes. Patient aware that if she continues to behave poorly and disturb other patient's and staff she may leave AMA. Patient in agreement to be respectful and attempt to continue medical treatment. Notified patient that LINUX DEVOPS ENGINEER would check in with her tomorrow to discuss d/c planning and treatment options. P: Pending. RN notified Quality Management of the above. YNES Alicia
[2018-01-24 16:45] VITALS: BP 163/107; PULSE 89; RESP 18; TEMP 36.2
--- NOTE | 2018-01-24 18:04 | PC.NURSE ---
juan antonio note pt reports having lumps under right armpit. 3 lumps noted, no scabs or drainage. Scabbed area to left armpit. Pt reports that the left lump ruptured this morning. Pt asking for a sleep aid and topical lidocaine for toe. Warm pack applied.
[2018-01-24] MEDS: INSULIN GLARGINE 100 UNIT/ML 3ML PEN 70 UNIT SUBCUT (20:33)
[2018-01-24] MEDS: MELATONIN 3 MG TABLET PO (20:35)
[2018-01-24 20:45] VITALS: BP 135/85; PULSE 112; RESP 18; TEMP 36.2
[2018-01-25 05:20] LABS: Add Manual Diff / Slide Review NO; Basophils Percent Auto 0.7 % (0-2); Eosinophils Percent Auto 1.9 % (2-4); Hematocrit 36.2 % (36-46); Hemoglobin 11.4 g/dL (12.0-16.0); Lymphocytes Percent Auto 35.9 % (25-40); Mean Corpuscular HGB Conc 31.6 % (30-36); Mean Corpuscular Hemoglobin 24.1 PG (26-34); Mean Corpuscular Volume 76.2 fL (80-100); Monocytes Percent Auto 9.3 % (3-14); Neutrophils Absolute Auto 4200 /uL (3000-5900); Neutrophils Percent Auto 52.2 % (50-75); Platelet Count 373 X10^3/uL (150-400); Red Blood Cell Count 4.75 X10^6/uL (4.0-5.2); Red Cell Distribution Width 17.5 % (11.6-14.8)
[2018-01-25 05:30] LABS: Alanine Aminotransferase 80 IU/L (9-52); Albumin 4.3 g/dL (3.5-5.0); Albumin Globulin Ratio 1.4 (1.0-2.8); Alkaline Phosphatase 204 U/L (38-126); Aspartate Aminotransferase 26 IU/L (14-36); BUN Creatinine Ratio 62.5 (6-22); Bilirubin Total 0.4 mg/dL (0.2-1.3); Blood Urea Nitrogen 25 mg/dL (7-17); Calcium 10.3 mg/dL (8.4-10.2); Carbon Dioxide 29 mmol/L (22-32); Chloride 96 mmol/L (98-107); Estimated Glomerular Filt Rate > 60.0 mL/min (>60); Globulin 3.1 g/dL (1.7-4.1); Glucose 264 mg/dL (70-100); HEMOLYSIS < 15 (0-50); Potassium 3.9 mmol/L (3.4-5.1); Sodium 138 mmol/L (137-145); Total Protein 7.4 g/dL (6.3-8.2)
--- NOTE | 2018-01-25 06:09 | PC.NURSE ---
Addendum entered by Hollie Marquez R.N. 01/25/18 07:27: Pt has refused vital signs overnight. Original Note: mold shifter: Pt has been cooperative overnight. Ate a small snack following 0200 CBG. C/o pain to both arm pit areas where she reports these painful pumps appeared since admission, pt picking at scab to left arm and encouraged to not pick, no drainage noted. Pt offered Tylenol at the start of shift with her pain complaints but declines Tylenol. Has been resting and appears comfortable.
[2018-01-25] MEDS: OXYCODONE ER 10 MG TAB PO ×2 (07:43→20:57)
[2018-01-25] MEDS: GABAPENTIN 600 MG TABLET PO ×2 (07:44→20:59)
[2018-01-25] MEDS: ACETAMINOPHEN 325 MG TABLET 650 MG PO ×2 (07:44→22:23)
[2018-01-25] MEDS: NICOTINE 7 MG PATCH TOP (07:44)
[2018-01-25] MEDS: DULOXETINE 20 MG CAPSULE 40 MG PO (07:44)
[2018-01-25] MEDS: TRIMETH/SULFA 160/800 (DS) TABLET 1 TAB PO ×2 (07:45→22:23)
--- NOTE | 2018-01-25 07:53 | PM.PN.1 ---
Subjective Date Patient Seen: 01/25/18 Time Patient Seen: 07:53 Interval history: FOLLOW UP ON DKA and R foot cellulitis. Now development of BL axillary abscessess Patient seen at bedside. One of her L axillary abscesses have burst last night with copious mucopurulent drainage. She complains of tenderness in both of her axillae as wells as swellings. BG is better controlled now. Pain is better controlled. Patient contineus to take Bactrim. Exam Vital Signs (past 8 hours): Oxygen Delivery Method Room Air Oxygen Flow Rate 0 Narrative Exam Narrative: General: NAD, AAOx3, dysheveled, unkempt individual HEENT: PERRLA bilaterally Neck: Supple, no LAD, no JVD CV: Regular rate rhythm, no murmurs, no gallops Respiratory: Clear to auscultation bilaterally no wheezing, no rhonchi, no crackles GI: Positive bowel sounds in all quadrants, no organomegaly, soft nontender Musculoskeletal: Patient moves all extremities without difficulty. Amputation of 1/2 of 1st right foot digit. BL axillary abscesses present- some with ulcerations and drainage Skin: Right 3rd foot digit erythematous, swollen, tender to palpation but improving. 1 cm purulent ulcer noted on the bottom side of the digit, healing Neuro: No focal deficit Psych: more pleasant this morning. cooperative Objective Labs Result Diagrams: 01/25/18 04:44 01/25/18 04:44 Labs: Laboratory Results - last 24 hr 01/24/18 01/24/18 01/25/18 05:00 08:10 04:44 WBC 8.6 8.0 RBC 4.57 4.75 Hgb 10.9 L 11.4 L Hct 35.1 L 36.2 MCV 76.8 L 76.2 L MCH 23.9 L 24.1 L MCHC 31.1 31.6 RDW 17.4 H 17.5 H Plt Count 389 373 Neut % (Auto) 60.2 52.2 Lymph % (Auto) 30.8 35.9 [place] % (Auto) 7.0 9.3 Eos % (Auto) 1.1 L 1.9 L Baso % (Auto) 0.9 0.7 Neut # (Auto) 5200 4200 Sodium 132 L Potassium 5.6 H Chloride 95 L Carbon Dioxide 23 BUN 21 H Creatinine 0.50 L Estimated GFR > 60.0 BUN/Creatinine Ratio 42.0 H Glucose 489 H* D Calcium 9.2 Total Bilirubin 0.4 AST 50 H ALT 98 H Alkaline Phosphatase 266 H Total Protein 6.7 Albumin 3.9 Globulin 2.8 Albumin/Globulin Ratio 1.4 01/25/18 04:44 WBC RBC Hgb Hct MCV MCH MCHC RDW Plt Count Neut % (Auto) Lymph % (Auto) [place] % (Auto) Eos % (Auto) Baso % (Auto) Neut # (Auto) Sodium 138 Potassium 3.9 D Chloride 96 L Carbon Dioxide 29 BUN 25 H Creatinine 0.40 L Estimated GFR > 60.0 BUN/Creatinine Ratio 62.5 H Glucose 264 H D Calcium 10.3 H Total Bilirubin 0.4 AST 26 ALT 80 H Alkaline Phosphatase 204 H Total Protein 7.4 Albumin 4.3 Globulin 3.1 Albumin/Globulin Ratio 1.4 Assessment & Plan Plan: Assessment/Plan Narrative: 1. Diabetic ketoacidosis -likely due to poor management of diabetes with insulin, as patient is homeless -blood glucose is better controlled now, gap is closed -Lantus was increased to 70U BID yesterday, but will increase to 75U BID today as BG still elevated. Continue high dose sliding scale. -diabetic diet 2. Methamphetamine abuse -monitor for withdrawals, treat symptomatically 3. Homelessness -social work consulted 4. R foot 3rd digit cellulitis - Ulcer is healing, swelling decreasing - wound cultures showed MRSA and strep agalactiae. Blood cultures negative - Was initially on Clindamycin IV, but pulled out her PICC line. So now she is on Bactrim PO BID - Wound care on board, will follow up - Tylenol/ Oxycodone for pain control (LFTs have improved) 5. LFT elevation - Likely due to chronic methamphetamine abuse - IMproving, continue to monitor 6. Multiple axillary abscesses - One burst with mucopurulent drainage - Patient states they are painful and uncomfortable - Will consult surgery for I/D Patient wishes to be full code 20 min spent evaluating in providing care for this patient Quality VTE Deep Vein Thrombosis/Pulmonary Embolism Present on Admission: No
[2018-01-25 08:00] VITALS: BP 115/86; PULSE 93; RESP 18; TEMP 36.6; O2SAT 97
[2018-01-25] MEDS: INSULIN ASPART 100 UNIT/ML INSULN PEN SUBCUT (08:44)
[2018-01-25] MEDS: INSULIN GLARGINE 100 UNIT/ML 3ML PEN 75 UNIT SUBCUT ×2 (08:46→22:22)
--- NOTE | 2018-01-25 11:43 | P.CONS_ITS ---
History of Present Illness Date Patient Seen: 01/25/18 Time Patient Seen: 09:00 Chief complaint: Dizziness/high BS Reason for consult: Bilateral axillary abscesses Requesting provider: Iliana Avalos Narrative: 37-year-old type 1 brittle diabetic female with history of methamphetamine use admitted in diabetic ketoacidosis several days ago who has developed bilateral axillary erythematous tender masses since admission. She states that she has been scratching and picking at the areas since admission. She has no history of abscesses in the past. Areas of now become quite tense, large, and painful. There has been spontaneous drainage reported from the left axillary region. Patient denies any fever or chills. [facility] Medical History Chronic ulcer of toe (Acute) Hypertension (Acute) Insulin dependent diabetes mellitus (Acute) Methamphetamine abuse (Acute) Peripheral vascular disease (Acute) Surgical History History of foot surgery (Acute) Family History Father Age: 57 Congestive heart failure Type 2 diabetes mellitus without complication, unspecified intermediate project manager insulin use status Heart disease High cholesterol Cerebrovascular accident (CVA), unspecified mechanism Mother Age: 54 Cancer Heart disease Essential hypertension Cerebrovascular accident (CVA), unspecified mechanism Mental health problem Sister Age: 31 Mental health problem Cancer Heart disease Social History Smoking Status: Current every day smoker alcohol intake: current Comment: Patient last used methamphetamine per her report 4 or 5 days ago. Meds Home Medications Medication Instructions Recorded Confirmed Type metoclopramide HCl 10 mg PO TIDAC PRN #90 tab 01/30/16 Rx insulin glargine [Lantus Solostar 70 unit SQ BID #0 02/07/16 History U-100 Insulin] methocarbamol 500 - 1,000 mg PO Q6H #30 tab 04/10/16 Rx fluticasone 0.05 mg INTRANASAL Q DAY PRN PRN 04/17/16 Rx #1 spr Syringes: 1cc Insulin Syringes syr SQ 5XD #100 05/19/16 Rx with [place] duloxetine 40 mg PO QDAY #0 04/16/17 History insulin aspart U-100 [Novolog 10 unit SQ TIDCC #0 04/16/17 History U-100 Insulin aspart] sulfamethoxazole-trimethoprim 2 tab PO BID #40 tab 04/18/17 Rx clonidine HCl 0.2 mg PO BID #60 04/20/17 Rx gabapentin [Neurontin] 600 mg PO TID #90 04/20/17 Rx oxycodone 10 mg PO QIDP PRN #100 04/20/17 Rx insulin glargine [Lantus Solostar 70 unit SUBCUT BEDTIME #3 ml 08/09/17 Rx U-100 Insulin] Allergies Allergy/AdvReac Type Severity Reaction Status Date / Time codeine [CODEINE] Allergy Severe Hives Verified 08/09/17 18:07 hydrocodone [HYDROCODONE] Allergy Severe Hives Verified 08/09/17 18:07 morphine [MORPHINE] Allergy Severe Hives Verified 08/09/17 18:07 nitrofurantoin Allergy Severe Hives Verified 08/09/17 18:07 [From MACROBID] adhesive tape Allergy Intermediate Hives Verified 01/22/18 08:43 Review of Systems Review of Systems All systems reviewed & are unremarkable except as noted in HPI and below Exam Vital Signs (past 8 hours): - 01/25/18 08:00 Temperature 98 F Pulse Rate 93 H Respiratory Rate 18 Blood Pressure 115/86 Pulse Oximetry 97 Oxygen Delivery Method Room Air Oxygen Flow Rate 0 Narrative Exam Narrative: Patient seen and examined with the assistance of the nurse scrape gatherer, Judi Gomez Patient is sitting in bed in no acute distress in the ICU. Alert oriented x3. She has just finished eating a complete diabetic diet breakfast tray. In fact, she is requesting that I will allow her to finish her breakfast currently. Sclera nonicteric Bilateral axillary examination show multiple nodular indurated abscesses with 2 dominant abscesses that are somewhat fluctuant bilaterally. Overlying eschar on the left side. Extremities show no clubbing, cyanosis, or edema but she does have toe deformities consistent with her known vascular disease and diabetes. Chronic left toe ulcer is clean without erythema or drainage. No necrosis. Objective Labs Result Diagrams: 01/25/18 04:44 01/25/18 04:44 Labs: Laboratory Results - last 24 hr 01/25/18 01/25/18 04:44 04:44 WBC 8.0 RBC 4.75 Hgb 11.4 L Hct 36.2 MCV 76.2 L MCH 24.1 L MCHC 31.6 RDW 17.5 H Plt Count 373 Neut % (Auto) 52.2 Lymph % (Auto) 35.9 [place] % (Auto) 9.3 Eos % (Auto) 1.9 L Baso % (Auto) 0.7 Neut # (Auto) 4200 Sodium 138 Potassium 3.9 D Chloride 96 L Carbon Dioxide 29 BUN 25 H Creatinine 0.40 L Estimated GFR > 60.0 BUN/Creatinine Ratio 62.5 H Glucose 264 H D Calcium 10.3 H Total Bilirubin 0.4 AST 26 ALT 80 H Alkaline Phosphatase 204 H Total Protein 7.4 Albumin 4.3 Globulin 3.1 Albumin/Globulin Ratio 1.4 Assessment & Plan Plan: Assessment/Plan Narrative: 37-year-old diabetic female with bilateral axillary abscesses. Both sides appear fluctuant and are progressing. Patient is complaining of pain related to the areas as well. There has been some spontaneous purulent drainage. Patient currently is on Bactrim orally. Would plan incision and drainage of bilateral axillary abscesses today later in the operating room. Because she has not been NPO we will have to wait 8 hr from her breakfast meal. In the interim she needs IV access so PICC line consult has been requested. I discussed the technical details of the procedure with the patient at length. Risks, benefits, alternatives were explained. Risks including but not limited to anesthesia, bleeding, recurring infection, ongoing infection, poor wound healing, pain, scars, cosmetic deformity, numbness, upper extremity swelling, need for further surgery were explained in detail. I am also quite concerned about her cardiac risk given her significant diabetes and recent methamphetamine use. I discussed this with her in keagan terms that she is at high risk for surgery. I also discussed with her bluntly that I would not prescribe significant amounts of ongoing narcotic pain medications given her history of narcotic use and methamphetamine addiction. We will manage her pain as best we can within safe and reasonable dosing regimens, but I informed her that she will have some postoperative discomfort. She was agreeable to that pain management arrangements. All questions were answered to her satisfaction, and she voiced understanding. Consent was placed on the chart. Orders were written. We will proceed to the OR later today as above.
[2018-01-25 12:00] VITALS: BP 130/98; PULSE 90; RESP 18; TEMP 36.1; O2SAT 94
--- NOTE | 2018-01-25 12:07 | PC.NURSE ---
pt has been mostly cooperative with de-escalation of any stressors and firm limits set- she had surgical consult in which Dr. Bullock bluntly explained to pt his plan for her bilat axilla nodules to be lanced and drained- she has been picking and squeezing even though instructed firmly by this RN that it was making her situation worse-encouraged frequent hand washing and spoke of hygeine needs both pre and post op-she declines most instructions from staff- consent signed and maintained npo status much to pt's displeasure
[2018-01-25 12:23] LABS: Pregnancy Test Urine Negative (Negative)
--- NOTE | 2018-01-25 15:43 | CM.DANOTE ---
DCP/continued: Reviewed chart. MD reports in AM rounds that surgery will be consulted for bilateral abscesses under patient's armpits today. It is anticipated that patient will require I&D. Spoke with RN this afternoon, and above information confirmed. Patient going to surgery later this afternoon. Patient resting at time of JACQUARD LACE WEAVER visit. RN reports improved behavior throughout the day. Patient requested JACQUARD LACE WEAVER call [facility] yesterday re: her belongings. Apparently patient has her personnel belongings at this site and is afraid that they will throw them away. JACQUARD LACE WEAVER attempted to call them yesterday so that patient could speak with them. Unfortunately, they had vm indicating that they did not open till noon. At patient's request JACQUARD LACE WEAVER re-called today and left vm requesting that they call [facility] ICU to be transferred into patient's room. No patient information provided on vm. Just request for return call. ICU/RN updated. P: JACQUARD LACE WEAVER to follow closely. Patient will need d/c planning. Unclear at this time if she is agreeable to inpatient setting for substance abuse or if she will need medical management? Patient mentioned to JACQUARD LACE WEAVER yesterday that nobody wants to take her as inpatient for substance abuse/mental health because of her medical complexity? YNES Alicia
[2018-01-25 16:00] VITALS: BP 141/84; PULSE 84; RESP 20; TEMP 36.6; O2SAT 92
--- NOTE | 2018-01-25 17:37 | PM.PREOP ---
Pre-operative Note Interval Note Pre-op Check: Yes History & Physical Reviewed by Physician, Yes Exam Performed and Yes History & Physical exam performed today by Physician Changes: No H&P completed within 30 days and has changed as indicated here:: Patient seen and examined today. History and physical examination placed on the chart. No changes since this morning. Proceed with incision and drainage of bilateral axillary abscesses as planned today.
[2018-01-25] MEDS: LACTATED RINGERS 1,000 ML 42 ML IV (17:45)
--- NOTE | 2018-01-25 18:11 | SUR.OPER ---
Supine on padded OR bed, head on pillow, arms secured on padded arm boards at <90 degrees abduction, legs uncrossed, safety belt at thigh, tape over blanket over lower legs.
[2018-01-25] MEDS: LIDOCAINE 1% W/EPI INJ 20 ML INJ (18:27)
[2018-01-25] MEDS: BUPIVACAINE 0.5% (PF) VIAL 30 ML INJ (18:28)
[2018-01-25 18:45] VITALS: BP 116/62; PULSE 107; RESP 18; TEMP 36.4; O2SAT 93
[2018-01-25 18:50] VITALS: BP 100/59; PULSE 103; RESP 22; O2SAT 95
--- NOTE | 2018-01-25 18:53 | PC.NURSE ---
juan antonio note pt c/o anxiety related to waiting for surgery time to arrive. Slight delay in getting pt to OR due to pt being in contact isolation; staff preparing to take pt from her room directly to OR instead of pre-op holding.
[2018-01-25 18:55] VITALS: BP 125/77; PULSE 105; RESP 15; O2SAT 94
[2018-01-25] MEDS: HYDROMORPHONE 0.5 MG INJ 1 MG IV (19:15)
--- NOTE | 2018-01-25 19:20 | P.OP_ITS ---
Operative Date/Time/Diagnoses Date of procedure: 01/25/18 Time of procedure: 19:12 Pre-op diagnosis: Bilateral axillary abscesses Post-op diagnosis: other (Bilateral axillary abscesses secondary to lymphadenitis) Procedure & Clinicians Procedure: Incision and drainage of bilateral axillary abscesses involving skin , subcutaneous tissue, and lymph nodes Same procedure as scheduled: Yes Indications: 37-year-old diabetic female who was found to have enlarging indurated tender and somewhat fluctuant masses in bilateral axilla. Examination and evaluation were consistent with abscesses. Incision and drainage was recommended. Surgeon: Hubert Bullock Click Yes if Unassisted: Yes Anesthesia Type: General Operative Notes Findings: 1. Bilateral subcutaneous abscesses containing pus in bilateral axilla, right greater than left 2. Bilateral lymphadenitis Closure Type: not applicable (Bilateral wounds packed with quarter-inch iodoform gauze) Specimen(s): other (1. Left axillary fluid for Gram stain and culture 2. Right axillary fluid for Gram stain and culture) Implants & Drains: None Applied: other (One quarter-inch iodoform gauze packing bilateral abscess cavities) Estimated Blood Loss (mL): 20 Blood products transfused: none Procedure in detail: After obtaining informed consent the patient was brought to the operating room placed supine on the table. After satisfactory induction of anesthesia the arms were abducted on arm boards and padded appropriately. SCOAP time out was performed per standard protocol. Bilateral axillae and chest were prepped and draped in usual sterile fashion. Attention was turned to the left axilla initially. There were 2 separate areas of induration and fluctuance. An elliptical portion of skin containing and overlying superficial necrotic ulcer was excised using 15 scalpel blade. Underlying tissue contains some turbid fluid which was sent for culture. Sharp and blunt dissection was then employed to open the cavity to normal appearing healthy tissue. Hemostasis was achieved with a right angle clamp a 2 0 silk tie. Bovie was also used for hemostasis. There was lymphadenitis as above. Total cavity size was 2 x 1 x 2 cm. A 1 x 1 x 1 cm area was encountered in the upper inner arm and subsequently incised with 15 scalpel blade. No significant purulent material was obtained but there was evidence of necrotic subcutaneous tissue at that level. Hemostasis was achieved with the Bovie. Wounds were irrigated with copious amounts of sterile saline solution and hemostasis verified. Area was infiltrated with a total of 20 cc of 1 :1 mixture 1% lidocaine with 1:100,000 epinephrine and 0.5% plain Marcaine for postoperative analgesia. One-quarter- inch iodoform gauze packing was placed in each abscess cavity. Attention was turned to the right axilla. In a similar fashion an obvious fluctuant abscess cavity was opened linearly with 15 scalpel blade. Ángel pus was obtained and sent for culture. Sharp and blunt dissection was used to open the cavity. I should note there were no undrained cavities or sinus tracts on either side following the procedure. Findings were similar on both sides. Total right axillary abscess cavity measured 4 x 3 by 2 cm. Again irrigation was performed and hemostasis verified. Area was infiltrated with 20 cc of the above local anesthetic mixture for postoperative analgesia. [id number] iodoform gauze packing was placed into the single abscess cavity in the right axilla. After verifying hemostasis bilaterally gauze dressings were placed over the wound sites and secured with Kerlix wraps around the chest wall and bilateral axilla. Anesthesia was reversed and the patient extubated in the operating room. She was taken back to the ICU in stable condition. Complications: none Condition: stable Disposition: PACU Plan for aftercare: 1. Return to ICU for ongoing convalescence and care
--- NOTE | 2018-01-25 19:46 | SUR.PHASEI ---
P LATE ENTRY: PT RECOVERED IN OR, THEN TRANSFERRED TO [address] TO ICCU PT STARTED TO C/O PAIN TO R AXILLIAR AREA, MEDICATED ON ARRIVAL WITH DILAUDID 1MG PER DR PRITCHARD, PT THEN LEFT IN STABLE CONDITION UNDER THE CARE OF ELIESER WEST.
[2018-01-25] MEDS: KETOROLAC 30 MG/ML VIAL IV (20:57)
[2018-01-25] MEDS: HYDROMORPHONE 4 MG TABLET PO (22:27)
[2018-01-26 00:12] VITALS: BP 136/79; PULSE 88; RESP 18; TEMP 35.8; O2SAT 91
[2018-01-26] MEDS: KETOROLAC 30 MG/ML VIAL IV ×2 (00:43→09:40)
[2018-01-26] MEDS: INSULIN ASPART 100 UNIT/ML INSULN PEN SUBCUT ×3 (00:44→11:55)
--- NOTE | 2018-01-26 00:59 | PC.NURSE ---
2330 Pt calm, cooperative. Using please and thank you for her many requests. Up to BR with SBA without difficulty. Snack provided. 0030 Called to patient room d/t drainage from her axillary dressings. R) axillary with some serosanguinous drainage noted and saturated dressing. Gauze dressing replaced. Left axillary with moderate drainage as well, reinforced X 2 incisions. During dressing change pt touching area. This RN asked her to stop and educated her on infection. 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 but continues touching surgical incision sites. Again reminded patient of infection and asked to leave her wounds alone. Pt states stop talking to me like I'm a fucking idiot, I heard you. Pt was asked to use respectful language and when she didn't this RN told her she was leaving the room and would be back to finish once she calmed. Upon return patient apologized for her behavior however immediately starting arguing with Yojana the CARDBOARD CUTTER. Pt states she feels like her blood sugar is high. Request check, result of 240. Asking for SSI. Pt refused SSI earlier so 5 units of Novolog given as a compromise (pt wanted 13 units). Will monitor closely.
[2018-01-26] MEDS: MELATONIN 3 MG TABLET PO (02:42)
[2018-01-26 05:26] LABS: Add Manual Diff / Slide Review NO; Basophils Percent Auto 0.6 % (0-2); Eosinophils Percent Auto 2.4 % (2-4); Hematocrit 31.5 % (36-46); Mean Corpuscular HGB Conc 31.6 % (30-36); Mean Corpuscular Hemoglobin 24.1 PG (26-34); Mean Corpuscular Volume 76.3 fL (80-100); Neutrophils Absolute Auto 3200 /uL (3000-5900); Platelet Count 304 X10^3/uL (150-400); Red Blood Cell Count 4.13 X10^6/uL (4.0-5.2); Red Cell Distribution Width 17.3 % (11.6-14.8); White Blood Cell Count 6.2 X10^3/uL (4.5-11.0)
[2018-01-26 05:27] LABS: BUN Creatinine Ratio 38.6 (6-22); Blood Urea Nitrogen 27 mg/dL (7-17); Calcium 9.1 mg/dL (8.4-10.2); Carbon Dioxide 32 mmol/L (22-32); Chloride 98 mmol/L (98-107); Estimated Glomerular Filt Rate > 60.0 mL/min (>60); Glucose 132 mg/dL (70-100); HEMOLYSIS < 15 (0-50); Potassium 4.7 mmol/L (3.4-5.1); Sodium 139 mmol/L (137-145)
[2018-01-26 07:42] VITALS: BP 120/66; PULSE 87; RESP 16; TEMP 36.6; O2SAT 98
[2018-01-26] MEDS: ACETAMINOPHEN 325 MG TABLET 650 MG PO (07:47)
[2018-01-26] MEDS: OXYCODONE ER 10 MG TAB PO ×2 (07:47→11:48)
[2018-01-26] MEDS: DULOXETINE 20 MG CAPSULE 40 MG PO (07:48)
[2018-01-26] MEDS: GABAPENTIN 600 MG TABLET PO (07:48)
[2018-01-26] MEDS: NICOTINE 7 MG PATCH TOP (09:41)
[2018-01-26] MEDS: INSULIN GLARGINE 100 UNIT/ML 3ML PEN 75 UNIT SUBCUT (09:41)
[2018-01-26] MEDS: TRIMETH/SULFA 160/800 (DS) TABLET 1 TAB PO (09:41)
[2018-01-26] MEDS: HYDROMORPHONE 2 MG INJ 1 MG IV (09:52)
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
--- NOTE | 2018-01-26 11:35 | CM.DPC ---
Addendum entered by YNES Khan 01/26/18 12:22: ADD: Return call from Medicaid Transport stating that the pt has been set up for transport multiple times in recent hx and when taxi arrived pt was a no show and therefore pt is no longer covered for Medicaid taxi but pt could call and request a bus pass to be mailed for future use. Medicaid reminded SW that the bus for [facility] is free of charge. SW completed Taxi Voucher through [employer] due to pt being indigent and not having any funds to pay for transport and this will keep pt from remaining in the hospital for another night that is not medically necessary. SW called [facility] and confirmed they are filling her prescriptions now and updated RN who states they will pick pulling machine operator pt's meds and give to the pt when she is getting into the taxi. SW called [employer] and requested taxi through [employer] for 1245 at ER enterance and updated RN and provided them with a copy of the Taxi Voucher to give to the miniature train driver. Plan: Patient to d/c with friend and with filled prescriptions via [employer] through [employer] to [facility] ($14) to catch the free bus to [facility] to stay with her friend. YNES Khan Original Note: Addendum entered by YNES Khan 01/26/18 11:43: ADD: KANDICE also called [facility] for an MIS check to determine if pt has a hx of MH/CD treatment and if she is currently enrolled. [facility] states that pt does not show as having a hx of MH hospitalizations and was enrolled in services in 2017 for a brief time but left services AMA. BF Original Note: DCP Discharge Home Per MD, pt is medically stable to d/c today and is aware that currently the pt is declining community resources or treatment at this time. KANDICE met bedside with pt and explained role prior to MD assessing the pt and discussed d/c planning needs. SW provided pt with community resources again, including [facility] and Crisis Intervention Prevention team, Inpt and outpt CD tx, and mental health support and pt declined services stating that her kids live in [place] and all my clothing and meds are in [place]. Pt states she is currently not willing to go anywhere besides [place] even though she is not allowed back at [facility] in [place] because I'm a medical liability and no other resources. Pt states she has no hx of Crisis Respite but thinks that she has utilized [facility] before but lack of [facility] resources. Pt states her plan is to fill her prescriptions and go try to get her suitcase where she left it and stay at her friends place in [place]. Pt requesting support with getting meds filled here at [facility] prior to d/c and requesting support with setting up Medicaid transport to her [facility]. RN faxing pt's facesheet and scripts to [facility] to see if they can fill patients meds. SW completed Medicaid transport request form since pt arrived by EMS and faxed to Medicaid to review and waiting for call back about time for transport and confirmation they can give pt a ride. Plan: SW to follow closely for [facility] review of pt's meds to be filled and return call from Medicaid to confirm they can transport pt today to [place] and what time. YNES Khan
--- NOTE | 2018-01-26 12:14 | PC.NURSE ---
pt with dressing changed right worse than left as far as drainage- serosang. pt is very dramatic even with tape removal - preparing for discharge with glucometer and strips called to [facility] [place] and other [facility] - AND HAND DELIVERED TO PT SHE ENTERED [email or web address] - WELL INSTRUCTIONS ABOUT WOUND CARE AND NEED TO CHANGE DRESSINGS ONLY NEEDED DUE TO SOILED DRESSING AND TO TRY HER HARDEST TO MAINTAIN CLEANLINESS AND FREQ HAND WASHING- MANY SUPPLIES GIVEN TO PT AND HER FRIEND ( WHO SHE WILL BE STAYING WITH ) IV LINE REMOVED WITHOUT DIFFICULTY- PREPARING FOR DISCHARGE
[2018-01-26 12:22] VITALS: BMI 24.6
--- NOTE | 2018-02-01 19:26 | P.DS_ITS ---
History of Present Illness Chief complaint: Dizziness/high BS Narrative: The patient is a 37-year-old female with PMH significant for HTN, DM 1T (uncontrolled), methamphetamine abuse, PVD, fibromyalgia, psychiatric illness (bipolar disorder, PTSD, ADHD, depression), and tobacco dependence. Patient was brought to the ED via EMS. She is not able to describe who called the EMS and where she was upon their arrival. Upon arrival complaining of abdominal pain, nausea, vomiting, and diarrhea. Associated symptoms include dizziness and lightheadedness, no syncopal events. Also reports generalized sense of fatigue and weakness. She is known to have recurrent admissions for DKA. Also, know to leave AMA at at frequent intervals. She is known to have uncontrolled diabetes and poor adherence with insulin regimen. Presented w/ serum glucose of 723. Denies fever and chills. Denies cough and URI symptoms. Denies chest pain, palpitations, dyspnea, dysuria, or blood loss in urine/ stool. Denies polydipsia and polyuria. Patient is homeless, reports not having access to her insulin for 24-48 hours. Patient was recently hospitalized for bilateral axilla abscesses for which she underwent incision and drainage. Patient was discharged on 01/26 w/ a course of Bactrim. She states that she has finished a course of Bactrim which was prescribed. Reports green purulent drainage from the axilla incisions and foul odor. Reports pain at incision sites. She has been on oral Dilaudid, which she ran out of shortly prior to hospital presentation. Patient was given a 30 day supply. Patient is known to smoke methamphetamines, last use 2 days ago by report. Discharge Providers Date of admission: 01/22/18 04:54 Consults: 01/22/18 08:34 Consult to Dietitian, Adult Routine Comment: smokes meth Reason For Exam: malnutrition 01/25/18 07:57 Consult to General Surgery Routine Comment: Consulting Provider: Hubert Bullock Reason for consultation: multiple axillary abscesses. Need I/D 01/25/18 07:59 Consult to Efficiency Manager Routine Comment: 01/25/18 11:28 Consult to PICC Line RN Routine Comment: Discharge provider: Kalen Bruner MD Discharge Date: 02/01/18 Summary Discharge Diagnosis: 1. Diabetic ketoacidosis secondary to insulin noncompliance 2. Bilateral axillary abscesses, status post I and D previous admission 2017 3. Chronic pressure ulcer on right 3rd middle toe 4. Methamphetamine dependence Hospital Course: Patient was admitted to ICU and treated with fluids and insulin drip to resolved DKA. She was started back on her insulin routine. New insulin prescriptions were provided to her. Her axillary abscesses appear adequately treated with previous I and D. The right axilla still has Shira form gauze packing which was changed daily. There is minimal drainage. The left side packing was removed. There is no surrounding cellulitis. She has a chronic probably pressure ulcer on the right 3rd middle toe but on revaluation there is no evidence of cellulitis. She would benefit from outpatient wound care although it does not seem she has transportation or motivation to make this happen. In regards to methamphetamine dependence, Care Management gave her resources on crisis intervention in [facility] but not clear patient is going to pursue this. Status at Discharge Functional status at discharge: independent ambulation Overall status at discharge: patient is back to baseline Time Spent with Patient Greater than 30 minutes Exam Vital Signs (past 8 hours): Oxygen Delivery Method Room Air Oxygen Flow Rate 0 Objective Labs Result Diagrams: 01/26/18 04:49 01/26/18 04:49 Discharge Plan Discharge Plan Patient Disposition: Home Discharge comment: Patient needs follow up with her PCP within one week Discharge Med Rec/Prescriptions Prescriptions: Continue duloxetine 20 MG capsule,delayed release(DR/EC) 40 mg PO QDAY Qty: 0 RF: 0 clonidine HCl 0.1 MG tablet 0.2 mg PO BID Qty: 60 RF: 0 Discontinued insulin glargine [Lantus Solostar U-100 Insulin] 100 unit/mL (3 mL) insulin pen 70 unit SUBCUT BEDTIME Qty: 3 RF: 0 No Action insulin glargine [Lantus U-100 Insulin] 100 unit/mL solution 75 unit SUBCUT BID Qty: 50 RF: 2 hydromorphone 2 mg tablet 2 mg PO Q6H PRN (Reason: pain) Qty: 20 RF: 0 Syringes: 1cc Insulin Syringes with [place] 1 syr SQ 5XD Qty: 100 RF: 3 insulin aspart U-100 [Novolog Flexpen U-100 Insulin] 100 unit/mL insulin pen 10 unit SUBCUT TID Qty: 15 RF: 2 gabapentin [Neurontin] 600 MG tablet 600 mg PO TID Qty: 90 RF: 2 Provider Discharge Instructions Diet: Carb-consistent/Diabetic Activity: Activity as tolerated Skin/Wound/Dressing Care Skin care: dressing changes daily, wick to remain in place until it falls out, Dressing: daily dressing changes to bilateral axilla Other wound treatment: leave wick in place until it spontaneously falls out Visit Report/Discharge Packet Visit Report Forms: Stroke Signs & Symptoms Discharge Data Attending Provider: Iliana Avalos Admit Date/Time: 01/22/18 04:54 Discharges patient from system. Discharge Date/Time: 01/26/18 12:45 Quality VTE Deep Vein Thrombosis/Pulmonary Embolism Present on Admission: No
== END 2018-01-26 12:45 | disposition home or self-care (01) | DRG 952 ==
LOC: ED 03:50 → ICU 07:11
PROVIDERS: Emergency Medicine; Surgery; Admitting Provider Internal Medicine; Emergency Provider Emergency Medicine; Visit Provider Internal Medicine
PROC: 079 Lymphatic and Hemic Systems, Drainage (ICD-10-PCS; principal; 2018-01-25 17:15)
DX: E10.10 Type 1 diabetes mellitus with ketoacidosis without coma (principal); I96 Gangrene, not elsewhere classified; L02.412 Cutaneous abscess of left axilla; L02.411 Cutaneous abscess of right axilla; E10.52 Type 1 diabetes mellitus with diabetic peripheral angiopathy with gangrene; E10.621 Type 1 diabetes mellitus with foot ulcer; L97.511 Non-pressure chronic ulcer of other part of right foot limited to breakdown of skin; L03.031 Cellulitis of right toe; Z59.0 Homelessness; F15.10 Other stimulant abuse, uncomplicated; Z79.4 Long term (current) use of insulin; F17.210 Nicotine dependence, cigarettes, uncomplicated; L04.2 Acute lymphadenitis of upper limb; B95.62 Methicillin resistant Staphylococcus aureus infection as the cause of diseases classified elsewhere
CPT/HCPCS: 10061; 36415; 36569; 36592; 71045; 80048; 80053; 81025; 82009; 82805; 82962; 83735; 84100; 85025; 87070; 87075; 87077; 87147; 87186; 87205; 87797; 93005; 93010; 96374; 96375; 96376; 99253; 99283; 99285; J0330; J1170; J1650; J1885; J2060; J2175; J2405; J2704; J2765; J3010; J3480; J7050; S0077

== ENCOUNTER 2018-01-30 18:54 | Inpatient (IN) | payer OTHER, MEDICAID, SELFPAY ==
[2018-01-22 08:00] VITALS: BMI 137.2
--- NOTE | 2018-01-30 18:59 | DI.RAD.S_ITS ---
PROCEDURE: XR CHEST 1V INDICATIONS: DKA TECHNIQUE: One view of the chest was acquired. COMPARISON: [facility], CR, XR CHEST 1V, 01/22/2018, 3:02. [facility], CR, XR CHEST 1V, 08/09/2017, 19:26. FINDINGS: Surgical changes and devices: None. Lungs and pleura: No pleural effusions or pneumothorax. Lungs are clear. Mediastinum: Mediastinal contours appear normal. Heart size is normal. Bones and chest wall: No suspicious bony lesions. Overlying soft tissues appear unremarkable. IMPRESSION: Reduced inspiratory time, no acute disease when this is taken into account. Dictated by: Vicente Hairston M.D. on 01/31/2018 at 8:17 Approved by: Vicente Hairston M.D. on 01/31/2018 at 8:17
--- NOTE | 2018-01-30 19:01 | PC.NURSE ---
Pt refusing care. Demanding pain medications. Refused to answer triage questions. She is requesting ice chips. Doctor stated she cannot have them just yet and left the bedside. Pt demanding to speak with doctor again before allowing us to take her wet clothing off and start basic care. Refusing vital signs. Notified doctor.
[2018-01-30 19:59] VITALS: BP 119/61; PULSE 126; RESP 21; TEMP 36.8; O2SAT 100
--- NOTE | 2018-01-30 20:00 | PC.NURSE ---
IV start attempted 3 times total. Not able to get access. Patient states she normally gets a central line or external jugular. Provider notified.
[2018-01-30 20:33] VITALS: BP 120/49; PULSE 127; RESP 22; TEMP 36.9; O2SAT 96
[2018-01-30 20:37] LABS: Add Manual Diff / Slide Review NO; Basophils Percent Auto 0.6 % (0-2); Hemoglobin 10.3 g/dL (12.0-16.0); Lymphocytes Percent Auto 12.8 % (25-40); Mean Corpuscular HGB Conc 27.1 % (30-36); Mean Corpuscular Hemoglobin 24.2 PG (26-34); Mean Corpuscular Volume 89.1 fL (80-100); Neutrophils Absolute Auto 5900 /uL (3000-5900); Neutrophils Percent Auto 81.6 % (50-75); Red Blood Cell Count 4.26 X10^6/uL (4.0-5.2); Red Cell Distribution Width 19.4 % (11.6-14.8); White Blood Cell Count 7.2 X10^3/uL (4.5-11.0)
[2018-01-30 20:39] LABS: Hematocrit 37.7 % (36-46); Platelet Count 421 X10^3/uL (150-400)
[2018-01-30] MEDS: ONDANSETRON 4 MG ODT PO (20:41)
[2018-01-30] MEDS: KETOROLAC 60 MG/2 ML VIAL IM (20:46)
[2018-01-30 20:48] LABS: Alanine Aminotransferase 104 IU/L (9-52); Albumin 4.7 g/dL (3.5-5.0); Albumin Globulin Ratio 1.7 (1.0-2.8); Alkaline Phosphatase 287 U/L (38-126); Aspartate Aminotransferase 37 IU/L (14-36); BUN Creatinine Ratio 46.7 (6-22); Bilirubin Total 0.5 mg/dL (0.2-1.3); Blood Urea Nitrogen 28 mg/dL (7-17); Calcium 9.8 mg/dL (8.4-10.2); Chloride 89 mmol/L (98-107); Estimated Glomerular Filt Rate > 60.0 mL/min (>60); Globulin 2.7 g/dL (1.7-4.1); HEMOLYSIS 27 (0-50); Ketones (Beta-Hydroxybutyrate) 9.99 mmol/L (<0.27); Potassium 5.4 mmol/L (3.4-5.1); Sodium 127 mmol/L (137-145); Total Protein 7.4 g/dL (6.3-8.2)
[2018-01-30 20:52] LABS: Glucose > 625 mg/dL (70-100)
[2018-01-30 20:53] LABS: Carbon Dioxide 6 mmol/L (22-32)
[2018-01-30] MEDS: MIDAZOLAM 5 MG/ML VIAL NASAL ×2 (21:07→21:49)
[2018-01-30 22:00] VITALS: BP 118/67; PULSE 129; RESP 21; O2SAT 97
[2018-01-30 22:30] VITALS: BP 117/69; PULSE 125; RESP 21; O2SAT 97
[2018-01-30] MEDS: SODIUM CHLORIDE 0.9% 1,000 ML 1000 ML IV (23:02)
--- NOTE | 2018-01-30 23:03 | PC.NURSE ---
[id number] In room with provider during central line insertion attempt. Provider unable to gain access via central line. PICC line nurse paged.
--- NOTE | 2018-01-30 23:03 | PC.NURSE ---
2300 Pt appears more drowsy. Arousable to sound and touch. Established IV access with 22g in left medial ankle. Ok per provider. Fluid therapy started at this time. PICC nurse still on the way.
[2018-01-30 23:30] VITALS: BP 102/64; PULSE 125; RESP 24; O2SAT 98
[2018-01-30 23:46] LABS: Urine Amphetamines Positive (Negative); Urine Barbiturates Negative (Negative); Urine Benzodiazepines Negative (Negative); Urine Cocaine Negative (Negative); Urine MDMA Negative (Negative); Urine Methadone Negative (Negative); Urine Methamphetamines Negative (Negative); Urine Morphine/Opi cutoff 2000 Negative (Negative); Urine Oxycodone Negative (Negative); Urine Phencyclidine Negative (Negative); Urine Tetrahydrocannabinol Negative (Negative); Urine Tricyclic Antidepressant Negative (Negative)
[2018-01-31] VITALS (16 sets, daily range): BP systolic 104–138; BP diastolic 62–85; PULSE 85–121; RESP 16–27; TEMP 36.3–37.3; O2SAT 95–100; BMI 22.1
[2018-01-31] MEDS: SODIUM CHLORIDE 0.9% 1,000 ML 1000 ML IV ×2 (00:10→01:05)
[2018-01-31 01:26] LABS: HCO3 VBG 8 mmol/L (24-28); Oxygen Saturation VBG 60 % (70-75); PCO2 VBG 25.6 mmHg (45-50); PO2 VBG 40 mmHg (35-45); Total CO2 VBG 9 mmol/L (24-29); pH VBG 7.13 (7.31-7.41)
[2018-01-31 01:31] LABS: Hematocrit 35.4 % (36-46); Mean Corpuscular HGB Conc 28.1 % (30-36); Mean Corpuscular Volume 85.4 fL (80-100); Platelet Count 486 X10^3/uL (150-400); Red Blood Cell Count 4.15 X10^6/uL (4.0-5.2); Red Cell Distribution Width 18.6 % (11.6-14.8); White Blood Cell Count 9.8 X10^3/uL (4.5-11.0)
[2018-01-31 01:35] LABS: Lactate (Lactic Acid) 0.9 mmol/L (0.7-2.1)
--- NOTE | 2018-01-31 01:36 | ED_ITS ---
HPI - Abdominal Pain General Chief Complaint: Diabetic Problem Stated Complaint: DKA, Abd pain Time Seen by Provider: 01/30/18 18:55 Source: patient and EMS Mode of arrival: EMS Limitations: no limitations History of Present Illness HPI narrative: 37-year-old female presents to the emergency department by EMS with a chief complaint feeling unwell with nausea and vomiting as well as blood sugars reading high. She is a medically noncompliant IV drug abuser who was recently admitted for DKA. She denies any runny nose, sore throat or cough. She has generalized abdominal pain and has for whatever reason not access to her insulin. She had been discharged on and like her last admission is of pain all. She did have some abscesses in her bilateral adnexal is drained packing placed. She was discharged Bactrim. They actually look quite good and there is minimal erythema no drainage. She admittedly uses intravenous methamphetamine and is homeless Related Data Home Medications Medication Instructions Recorded Confirmed insulin glargine [Lantus Solostar 70 unit SQ BID #0 02/07/16 U-100 Insulin] duloxetine 40 mg PO QDAY #0 04/16/17 insulin aspart U-100 [Novolog 10 unit SQ TIDCC #0 04/16/17 U-100 Insulin aspart] Previous Rx's Medication Instructions Recorded metoclopramide HCl 10 mg PO TIDAC PRN #90 tab 01/30/16 methocarbamol 500 - 1,000 mg PO Q6H #30 tab 04/10/16 fluticasone 0.05 mg INTRANASAL Q DAY PRN PRN 04/17/16 #1 spr Syringes: 1cc Insulin Syringes syr SQ 5XD #100 05/19/16 with [place] sulfamethoxazole-trimethoprim 2 tab PO BID #40 tab 04/18/17 clonidine HCl 0.2 mg PO BID #60 04/20/17 gabapentin [Neurontin] 600 mg PO TID #90 04/20/17 oxycodone 10 mg PO QIDP PRN #100 04/20/17 hydromorphone 2 mg PO Q6H PRN #20 tab 01/26/18 insulin glargine [Lantus Solostar 75 unit SUBCUT BID 30 Days #45 ml 01/26/18 U-100 Insulin] sulfamethoxazole-trimethoprim 2 tab PO BID 10 Days #40 tab 01/26/18 [Bactrim DS] Allergies Allergy/AdvReac Type Severity Reaction Status Date / Time codeine [CODEINE] Allergy Severe Hives Verified 08/09/17 18:07 hydrocodone [HYDROCODONE] Allergy Severe Hives Verified 08/09/17 18:07 morphine [MORPHINE] Allergy Severe Hives Verified 08/09/17 18:07 nitrofurantoin Allergy Severe Hives Verified 08/09/17 18:07 [From MACROBID] adhesive tape Allergy Intermediate Hives Verified 01/22/18 08:43 fentanyl AdvReac Mild itching Verified 01/25/18 20:49 Review of Systems Review of Systems All systems reviewed & are unremarkable except as noted in HPI and below Constitutional Denies chills, Denies fever(s), Denies lethargy and Reports weakness Eyes Denies change in vision, Denies eye discharge, Denies irritation and Denies loss of vision ENT Ears, Nose, Mouth, and Throat: Denies change in voice, Denies neck pain and Denies sore throat Cardiovascular Denies chest pain, Denies irregular heart rhythm, Denies lightheadedness, Denies palpitations, Denies dyspnea, Denies dyspnea on exertion and Denies orthopnea Respiratory Denies cough, Denies dyspnea, Denies dyspnea on exertion and Denies wheezing Gastrointestinal Gastrointestinal: Reports abdominal pain, Denies change in bowel habits, Denies diarrhea, Reports nausea and Reports vomiting Genitourinary Denies hematuria, Denies flank pain, Denies urinary incontinence and Denies urinary urgency Musculoskeletal Denies neck pain Integumentary/Breasts Denies pruritus, Denies erythema, Denies rash, Reports skin pain, Reports skin swelling and Denies wounds Neurologic Denies confusion, Denies loss of vision and Reports weakness Psychiatric Denies anxiety, Denies confusion, Denies depression, Denies homicidal ideation and Denies suicidal ideation Endocrine Denies palpitations Hematologic/Lymphatic Denies easy bruising Allergic/Immunologic Denies wheezing [facility] Medical History Chronic ulcer of toe (Acute) Hypertension (Acute) Insulin dependent diabetes mellitus (Acute) Methamphetamine abuse (Acute) Peripheral vascular disease (Acute) Surgical History History of foot surgery (Acute) Family History: Reviewed 01/31/18 by TREVOR Hernandez Social History Smoking Status: Current every day smoker alcohol intake: current Exam Narrative Exam Narrative: 37-year-old female, unkempt, disheveled and obviously Initial Vital Signs Initial Vital Signs: Vital Signs Temperature 98.3 F 01/30/18 19:59 Pulse Rate 126 H 01/30/18 19:59 Respiratory Rate 21 01/30/18 19:59 Blood Pressure 119/61 01/30/18 19:59 Pulse Oximetry 100 01/30/18 19:59 Const General: cooperative, acute distress and ill appearing Orientation: alert, awake, oriented x3 and not confused Other: Very poor historian HENMT Ears: hearing grossly normal bilaterally Nose: external nose normal Face and sinus: normal facial exam Teeth and gingiva: poor dentition Eyes General: appearance normal, both eyes and all related structures Eyelids: eyelids normal Conjunctivae: conjunctivae normal Sclera: sclerae normal Pupils: PERRL EOM: EOM intact bilaterally Neck Neck: normal visual inspection, trachea midline, No lymphadenopathy, No midline deformity and No JVD Lymphatic: No lymphedema Resp Effort & Inspection: normal respiratory effort, able to speak in complete sentences, no respiratory distress and no use of accessory muscles Auscultation: clear to auscultation bilaterally, no rales, no rhonchi and no wheezes Cardio Rate: tachycardic Rhythm: regular rhythm GI Inspection: non-distended Palpation: soft, no hepatosplenomegaly, No guarding, No pulsatile mass and No tender Auscultation: normal bowel sounds Back/Spine/Pelvis Back: No CVA tenderness Cervical Spine: cervical ROM normal and No pain with cervical ROM Thoracic/Lumbar Spine: thoracic and lumbar spine normal to inspection Skin Other: Bilateral axillary abscesses with packing in place. Minimal erythema and no drainage Neuro General: alert, awake and oriented x3 Motor: muscle tone normal throughout Sensory Exam: no sensory deficits noted Procedures Central Line Placement Left SC: Time Out Performed: Yes Patient Placed on Monitor/Pulse Ox: Yes MD Prep: mask, gown and gloves Central Line Prep: Chlorhexidine scrub and sterile drapes applied Local Anesthetic: lidocaine 1% Amount of anesthesia used (mL): 3 Ultrasound Used for Placement: No Central Line Lumen Inserted: single Additional Comments: unsuccesful attempt Course Orders Ordered: ED Orders 01/30/18 20:20 Complete Blood Count AUTO DIFF Stat Comprehensive Metabolic Panel Stat Ketones (Beta-Hydroxybutyrate) Stat 01/30/18 23:00 Blood Culture Stat 01/30/18 23:34 urine tox [Urine Drug Screen, Rapid] Stat 01/31/18 Blood Culture Routine 01/31/18 01:07 Basic Metabolic Panel Stat Complete Blood Count NO DIFF Stat 01/31/18 02:35 MRSA PCR Stat 01/31/18 04:00 Basic Metabolic Panel Q4H 01/31/18 08:00 Basic Metabolic Panel Q4H 01/31/18 12:00 Basic Metabolic Panel Q4H 01/31/18 16:00 Basic Metabolic Panel Q4H 01/31/18 20:00 Basic Metabolic Panel Q4H Acetaminophen (Tylenol) 650 mg PO Q4HR PRN PRN Reason: As Needed for Fever/Mild Pain Clonidine HCl (Catapres) 0.1 mg PO Q6H CASS Dextrose (D50w) 25 gm IV PRN PRN PRN Reason: Hypoglycemia Duloxetine HCl (Cymbalta) 60 mg PO DAILY CASS Gabapentin (Neurontin) 600 mg PO TID CASS Insulin Human Regular 100 unit (/ Sodium Chloride) 100 mls @ 6 mls/hr IV TITRATE CASS; Protocol Last Titration: 01/31/18 02:37 Dose: 6 mls/hr, 6 mls/hr Admin: 01/31/18 01:52 Dose: 6 mls/hr, 6 mls/hr Dextrose/Sodium Chloride (Dextrose 5%-0.45% Ns) 1,000 mls @ 150 mls/hr IV CONT CASS Sodium Chloride (Normal Saline 0.45%) 1,000 mls @ 200 mls/hr IV CONT CASS Last Admin: 01/31/18 04:01 Dose: 200 mls/hr Ketorolac Tromethamine (Toradol) 15 mg IV Q6HR PRN PRN Reason: Pain, Moderate (4-6) Metoclopramide HCl (Reglan) 10 mg IV Q6HR PRN PRN Reason: Nausea And Vomiting Discontinued Medications Hydromorphone HCl (Dilaudid) 0.5 mg IV NOW ONE Stop: 01/31/18 03:42 Last Admin: 01/31/18 04:02 Dose: 0.5 mg Sodium Chloride (Normal Saline 0.9%) 1,000 mls @ 1,000 mls/hr IV BOLUS ONE Stop: 01/30/18 19:57 Last Infusion: 01/31/18 00:06 Dose: 0 mls/hr Admin: 01/30/18 23:02 Dose: 1,000 mls/hr Sodium Chloride (Normal Saline 0.9%) 1,000 mls @ 1,000 mls/hr IV BOLUS ONE Stop: 01/31/18 01:06 Last Infusion: 01/31/18 01:10 Dose: 0 mls/hr Admin: 01/31/18 00:10 Dose: 1,000 mls/hr Sodium Chloride (Normal Saline 0.9%) 1,000 mls @ 1,000 mls/hr IV BOLUS ONE Stop: 01/31/18 02:36 Last Infusion: 01/31/18 02:38 Dose: 0 mls/hr Admin: 01/31/18 01:05 Dose: 1,000 mls/hr Insulin Human Regular 100 unit (/ Sodium Chloride) 100 mls @ 6 mls/hr IV TITRATE CASS; Protocol Ketorolac Tromethamine (Toradol) 60 mg IM NOW ONE Stop: 01/30/18 20:42 Last Admin: 01/30/18 20:46 Dose: 60 mg Metoclopramide HCl (Reglan) 10 mg IV NOW ONE Stop: 01/30/18 18:59 Last Admin: 01/30/18 23:02 Dose: Not Given Midazolam HCl (Versed) 5 mg NASAL NOW ONE Stop: 01/30/18 21:02 Last Admin: 01/30/18 21:07 Dose: 5 mg Midazolam HCl (Versed) 5 mg NASAL NOW ONE Stop: 01/30/18 21:49 Last Admin: 01/30/18 21:49 Dose: 5 mg Ondansetron HCl (Zofran Odt) 4 mg PO NOW ONE Stop: 01/30/18 20:34 Last Admin: 01/30/18 20:41 Dose: 4 mg Reevaluation(s) Reevaluation #1: Multiple attempts at peripheral IVs including ultrasound for placement peripheral. Furthermore I attempted an EJ her right side and had mild flash but no access to the vein. Central line was attempted unsuccessful. PICC team consulted for larger venous access. She did have a small peripheral IV for hydration placed in her foot but needed to be replaced Consultations Consultation #1: Patient was quite anxious prior to attempt central. As a result she was given Versed intranasal which worked quite well. She was awake and alert but became much less anxious. Consultation #2: hospitalist contacted and happy to accept to ICU Vital Signs - 8 hr 01/30/18 20:33 01/30/18 22:00 01/30/18 22:30 Temperature 98.4 F Pulse Rate 127 H 129 H 125 H Respiratory Rate 22 21 21 Blood Pressure Blood Pressure [Left Arm] Blood Pressure [Left Calf] 120/49 L 118/67 117/69 Pulse Oximetry 96 97 97 01/30/18 23:30 01/31/18 00:00 01/31/18 00:30 Temperature Pulse Rate 125 H 120 H 121 H Respiratory Rate 24 22 20 Blood Pressure Blood Pressure [Left Arm] 102/64 104/64 119/75 Blood Pressure [Left Calf] Pulse Oximetry 98 98 97 01/31/18 01:00 01/31/18 01:30 01/31/18 02:35 Temperature 98.9 F Pulse Rate 121 H 119 H 116 H Respiratory Rate 19 19 24 Blood Pressure 138/84 Blood Pressure [Left Arm] 134/77 118/73 Blood Pressure [Left Calf] Pulse Oximetry 96 MDM - Abdominal Pain Lab Data Result diagrams: 01/31/18 01:07 01/31/18 01:07 Lab Results 01/30/18 01/30/18 01/30/18 Range/Units 20:20 20:20 23:34 WBC 7.2 (4.5-11.0) X10^3/uL RBC 4.26 (4.0-5.2) X10^6/uL Hgb 10.3 L (12.0-16.0) g/dL Hct 37.7 (36-46) % MCV 89.1 D (80-100) fL MCH 24.2 L (26-34) PG MCHC 27.1 L (30-36) % RDW 19.4 H (11.6-14.8) % Plt Count 421 H (150-400) X10^3/uL Neut % (Auto) 81.6 H (50-75) % Lymph % (Auto) 12.8 L (25-40) % [place] % (Auto) 5.0 (3-14) % Eos % (Auto) 0.0 L (2-4) % Baso % (Auto) 0.6 (0-2) % Neut # (Auto) 5900 (5922-0711) /uL VBG pH (7.31-7.41) VBG pCO2 (45-50) mmHg VBG pO2 (35-45) mmHg VBG HCO3 (24-28) mmol/L VBG Total CO2 (24-29) mmol/L VBG O2 Saturation (70-75) % VBG Base Excess (0-4) mmol/L Sodium 127 L D (137-145) mmol/L Potassium 5.4 H (3.4-5.1) mmol/L Chloride 89 L (98-107) mmol/L Carbon Dioxide 6 L* (22-32) mmol/L BUN 28 H (7-17) mg/dL Creatinine 0.60 (0.52-1.04) mg/dL Estimated GFR > 60.0 (>60) mL/min BUN/Creatinine Ratio 46.7 H (6-22) Glucose > 625 H* D (70-100) mg/dL Lactate (0.7-2.1) mmol/L Calcium 9.8 (8.4-10.2) mg/dL Total Bilirubin 0.5 (0.2-1.3) mg/dL AST 37 H (14-36) IU/L ALT 104 H (9-52) IU/L Alkaline Phosphatase 287 H (38-126) U/L Total Protein 7.4 (6.3-8.2) g/dL Albumin 4.7 (3.5-5.0) g/dL Globulin 2.7 (1.7-4.1) g/dL Albumin/Globulin Ratio 1.7 (1.0-2.8) Procalcitonin (<0.5) ng/mL Urine Opiates Screen Negative (Negative) Ur Oxycodone Screen Negative (Negative) Urine Methadone Screen Negative (Negative) Ur Barbiturates Screen Negative (Negative) U Tricyclic Antidepress Negative (Negative) Ur Phencyclidine Scrn Negative (Negative) Ur Amphetamines Screen Positive H (Negative) U Methamphetamines Scrn Negative (Negative) Ur MDMA Scrn (Ecstasy) Negative (Negative) U Benzodiazepines Scrn Negative (Negative) Urine Cocaine Screen Negative (Negative) U Marijuana (THC) Screen Negative (Negative) Ketones 9.99 H (<0.27) mmol/L 01/31/18 01/31/18 01/31/18 Range/Units 01:03 01:07 01:07 WBC (4.5-11.0) X10^3/uL RBC (4.0-5.2) X10^6/uL Hgb (12.0-16.0) g/dL Hct (36-46) % MCV (80-100) fL MCH (26-34) PG MCHC (30-36) % RDW (11.6-14.8) % Plt Count (150-400) X10^3/uL Neut % (Auto) (50-75) % Lymph % (Auto) (25-40) % [place] % (Auto) (3-14) % Eos % (Auto) (2-4) % Baso % (Auto) (0-2) % Neut # (Auto) (8859-9164) /uL VBG pH 7.13 L* (7.31-7.41) VBG pCO2 25.6 L (45-50) mmHg VBG pO2 40 (35-45) mmHg VBG HCO3 8 L (24-28) mmol/L VBG Total CO2 9 L (24-29) mmol/L VBG O2 Saturation 60 L (70-75) % VBG Base Excess -21.0 L (0-4) mmol/L Sodium (137-145) mmol/L Potassium (3.4-5.1) mmol/L Chloride (98-107) mmol/L Carbon Dioxide (22-32) mmol/L BUN (7-17) mg/dL Creatinine (0.52-1.04) mg/dL Estimated GFR (>60) mL/min BUN/Creatinine Ratio (6-22) Glucose (70-100) mg/dL Lactate 0.9 (0.7-2.1) mmol/L Calcium (8.4-10.2) mg/dL Total Bilirubin (0.2-1.3) mg/dL AST (14-36) IU/L ALT (9-52) IU/L Alkaline Phosphatase (38-126) U/L Total Protein (6.3-8.2) g/dL Albumin (3.5-5.0) g/dL Globulin (1.7-4.1) g/dL Albumin/Globulin Ratio (1.0-2.8) Procalcitonin 0.08 (<0.5) ng/mL Urine Opiates Screen (Negative) Ur Oxycodone Screen (Negative) Urine Methadone Screen (Negative) Ur Barbiturates Screen (Negative) U Tricyclic Antidepress (Negative) Ur Phencyclidine Scrn (Negative) Ur Amphetamines Screen (Negative) U Methamphetamines Scrn (Negative) Ur MDMA Scrn (Ecstasy) (Negative) U Benzodiazepines Scrn (Negative) Urine Cocaine Screen (Negative) U Marijuana (THC) Screen (Negative) Ketones (<0.27) mmol/L 01/31/18 01/31/18 01/31/18 Range/Units 01:07 01:07 03:15 WBC 9.8 (4.5-11.0) X10^3/uL RBC 4.15 (4.0-5.2) X10^6/uL Hgb 10.0 L (12.0-16.0) g/dL Hct 35.4 L (36-46) % MCV 85.4 D (80-100) fL MCH 24.0 L (26-34) PG MCHC 28.1 L (30-36) % RDW 18.6 H (11.6-14.8) % Plt Count 486 H (150-400) X10^3/uL Neut % (Auto) (50-75) % Lymph % (Auto) (25-40) % [place] % (Auto) (3-14) % Eos % (Auto) (2-4) % Baso % (Auto) (0-2) % Neut # (Auto) (7665-0417) /uL VBG pH (7.31-7.41) VBG pCO2 (45-50) mmHg VBG pO2 (35-45) mmHg VBG HCO3 (24-28) mmol/L VBG Total CO2 (24-29) mmol/L VBG O2 Saturation (70-75) % VBG Base Excess (0-4) mmol/L Sodium 134 L (137-145) mmol/L Potassium 5.0 (3.4-5.1) mmol/L Chloride 97 L (98-107) mmol/L Carbon Dioxide 6 L* (22-32) mmol/L BUN 28 H (7-17) mg/dL Creatinine 0.60 (0.52-1.04) mg/dL Estimated GFR > 60.0 (>60) mL/min BUN/Creatinine Ratio 46.7 H (6-22) Glucose 723 H* Cancelled (70-100) mg/dL Lactate (0.7-2.1) mmol/L Calcium 9.0 (8.4-10.2) mg/dL Total Bilirubin (0.2-1.3) mg/dL AST (14-36) IU/L ALT (9-52) IU/L Alkaline Phosphatase (38-126) U/L Total Protein (6.3-8.2) g/dL Albumin (3.5-5.0) g/dL Globulin (1.7-4.1) g/dL Albumin/Globulin Ratio (1.0-2.8) Procalcitonin (<0.5) ng/mL Urine Opiates Screen (Negative) Ur Oxycodone Screen (Negative) Urine Methadone Screen (Negative) Ur Barbiturates Screen (Negative) U Tricyclic Antidepress (Negative) Ur Phencyclidine Scrn (Negative) Ur Amphetamines Screen (Negative) U Methamphetamines Scrn (Negative) Ur MDMA Scrn (Ecstasy) (Negative) U Benzodiazepines Scrn (Negative) Urine Cocaine Screen (Negative) U Marijuana (THC) Screen (Negative) Ketones (<0.27) mmol/L Point of care testing: Point of Care Testing Test Results Negative Glucose POC 500 Urine Dip Bedside Urine Glucose 1000 mg/dl Bedside Urine Bilirubin - Negative Bedside Urine Ketone +++ 80 Urine Specific [place] 1.015 Bedside Urine Occult Blood - Negative Bedside Urine pH 5.0 Bedside Urine Protein - Negative Bedside Urine Urobilinogen - Negative Bedside Urine Nitrite - Negative Bedside Urine Leukocytes - Negative Esterase MDM Narrative Medical decision making narrative: High suspicion for DKA at the onset. Multiple attempts at peripheral IVs are unsuccessful. Patient blood sugar over 600, pH 7.1, bicarb 6, anion gap over 30. Insulin drip started and admitted to ICU Discharge Plan Departure Patient Disposition: Admitted As Inpatient Clinical Impression: DKA (diabetic ketoacidoses) Discharge Date/Time: 01/31/18 02:37 Interventions: ED Discharge Assessment Last Done: 01/31/18 02:35 Admit Date/Time: 01/31/18 01:46 Admit Provider: Dante Garcia
[2018-01-31 01:38] LABS: BUN Creatinine Ratio 46.7 (6-22); Blood Urea Nitrogen 28 mg/dL (7-17); Chloride 97 mmol/L (98-107); Estimated Glomerular Filt Rate > 60.0 mL/min (>60); HEMOLYSIS 19 (0-50); Sodium 134 mmol/L (137-145)
[2018-01-31 01:40] LABS: Carbon Dioxide 6 mmol/L (22-32)
[2018-01-31 01:47] LABS: Glucose 723 mg/dL (70-100)
[2018-01-31] MEDS: INSULIN REGULAR, HUMAN 100 UNIT in SODIUM CHLORIDE 0.9% 100 ML 6 ML IV (01:52)
[2018-01-31 01:56] LABS: Procalcitonin 0.08 ng/mL (<0.5)
--- NOTE | 2018-01-31 02:40 | P.HP_ITS ---
History of Present Illness Chief complaint: DKA, Abd pain Narrative: The patient is a 37-year-old female with PMH significant for HTN, DM 1T (uncontrolled), methamphetamine abuse, PVD, fibromyalgia, psychiatric illness (bipolar disorder, PTSD, ADHD, depression), and tobacco dependence. Patient was brought to the ED via EMS. She is not able to describe who called the EMS and where she was upon their arrival. Upon arrival complaining of abdominal pain, nausea, vomiting, and diarrhea. Associated symptoms include dizziness and lightheadedness, no syncopal events. Also reports generalized sense of fatigue and weakness. She is known to have recurrent admissions for DKA. Also, know to leave AMA at at frequent intervals. She is known to have uncontrolled diabetes and poor adherence with insulin regimen. Presented w/ serum glucose of 723. Denies fever and chills. Denies cough and URI symptoms. Denies chest pain, palpitations, dyspnea, dysuria, or blood loss in urine/ stool. Denies polydipsia and polyuria. Patient is homeless, reports not having access to her insulin for 24-48 hours. Patient was recently hospitalized for bilateral axilla abscesses for which she underwent incision and drainage. Patient was discharged on 01/26 w/ a course of Bactrim. She states that she has finished a course of Bactrim which was prescribed. Reports green purulent drainage from the axilla incisions and foul odor. Reports pain at incision sites. She has been on oral Dilaudid, which she ran out of shortly prior to hospital presentation. Patient was given a 30 day supply. Patient is known to smoke methamphetamines, last use 2 days ago by report. Venous ABG: pH 7.13, pCO2 25.6, pO2 40, HCO3 8 Na 134 K 5 Cl 97 CO2 6 BUN 28 sCr 0.60 Glu 723, urine ketones 9.99 mmol/L WBC 9.8 Hgb 10.0 Plt 486 Patient History Medical History Chronic ulcer of toe (Acute) Hypertension (Acute) Insulin dependent diabetes mellitus (Acute) Methamphetamine abuse (Acute) Peripheral vascular disease (Acute) Surgical History History of foot surgery (Acute) Family & Social History Family History: Reviewed 01/31/18 by TREVOR Hernandez Tobacco & Substance use: Smoking Status Current every day smoker alcohol intake current alcohol intake frequency 0-2 drinks per day Substance Use Type methamphetamine Meds Home Medications Medication Instructions Recorded Confirmed Type metoclopramide HCl 10 mg PO TIDAC PRN #90 tab 01/30/16 Rx insulin glargine [Lantus Solostar 70 unit SQ BID #0 02/07/16 History U-100 Insulin] methocarbamol 500 - 1,000 mg PO Q6H #30 tab 04/10/16 Rx fluticasone 0.05 mg INTRANASAL Q DAY PRN PRN 04/17/16 Rx #1 spr Syringes: 1cc Insulin Syringes syr SQ 5XD #100 05/19/16 Rx with [facility] duloxetine 40 mg PO QDAY #0 04/16/17 History insulin aspart U-100 [Novolog 10 unit SQ TIDCC #0 04/16/17 History U-100 Insulin aspart] sulfamethoxazole-trimethoprim 2 tab PO BID #40 tab 04/18/17 Rx clonidine HCl 0.2 mg PO BID #60 04/20/17 Rx gabapentin [Neurontin] 600 mg PO TID #90 04/20/17 Rx oxycodone 10 mg PO QIDP PRN #100 04/20/17 Rx hydromorphone 2 mg PO Q6H PRN #20 tab 01/26/18 Rx insulin glargine [Lantus Solostar 75 unit SUBCUT BID 30 Days #45 ml 01/26/18 Rx U-100 Insulin] sulfamethoxazole-trimethoprim 2 tab PO BID 10 Days #40 tab 01/26/18 Rx [Bactrim DS] Allergies Allergy/AdvReac Type Severity Reaction Status Date / Time codeine [CODEINE] Allergy Severe Hives Verified 08/09/17 18:07 hydrocodone [HYDROCODONE] Allergy Severe Hives Verified 08/09/17 18:07 morphine [MORPHINE] Allergy Severe Hives Verified 08/09/17 18:07 nitrofurantoin Allergy Severe Hives Verified 08/09/17 18:07 [From MACROBID] adhesive tape Allergy Intermediate Hives Verified 01/22/18 08:43 fentanyl AdvReac Mild itching Verified 01/25/18 20:49 Review of Systems Review of Systems All systems reviewed & are unremarkable except as noted in HPI and below Exam Vital Signs (past 8 hours): - 01/30/18 19:59 01/30/18 20:33 01/30/18 22:00 Temperature 98.3 F 98.4 F Pulse Rate 126 H 127 H 129 H Respiratory Rate 21 22 21 Blood Pressure 119/61 Blood Pressure [Left Arm] Blood Pressure [Left Calf] 120/49 L 118/67 Pulse Oximetry 100 96 97 01/30/18 22:30 01/30/18 23:30 01/31/18 00:00 Temperature Pulse Rate 125 H 125 H 120 H Respiratory Rate 21 24 22 Blood Pressure Blood Pressure [Left Arm] 102/64 104/64 Blood Pressure [Left Calf] 117/69 Pulse Oximetry 97 98 98 01/31/18 00:30 01/31/18 01:00 01/31/18 01:30 Temperature Pulse Rate 121 H 121 H 119 H Respiratory Rate 20 19 19 Blood Pressure Blood Pressure [Left Arm] 119/75 134/77 118/73 Blood Pressure [Left Calf] Pulse Oximetry 97 Oxygen Delivery Method Room Air Narrative Exam Narrative: General appearance: Patient is seen in the ICU. On 1st appearance observed patient interacting with the nurses, she is verbally inappropriate in her communication with the nurses and refuses to have labs drawn. Head: NC / AT Neck: adequate ROM, no focal tenderness, no lyphadenopathy, no JVD EENT: Pupils round, equal and reactive. EOIM. Sclera anicteric. External ears normal w/o drainage. Hearing acuity intact. External nose normal without rhinorrhea or epistaxis. Facial flushing present. Chest: equal rise Respiratory: no dyspnea, mildly tachypneic, CTAB, on room air Heart / CV: S1S2, no murmur; tachycardic on youth nutritional monitor at 122 Peripheral vascular: no edema, bi-pedal pulses diminished GI: soft, non-distended, diffuse tenderness to palpation, no organomegaly : no suprapubic tenderness Skin: pale overall appearance right axilla incision with packing, no significant erythema or drainage present; however the dressing, is extremely soiled left axilla incision and packing, no significant erythema or drainage, tenderness to palpation of both the right and the left axilla 3rd phalanx of right foot with marked edema, erythema, and tenderness Neuro: AOx3, follows commands, answers questions appropriately, no tremor Psych: Mood labile, agitated and aggressive Objective Labs Result Diagrams: 01/31/18 01:07 01/31/18 04:00 Labs: Laboratory Results - last 24 hr 01/30/18 01/30/18 01/30/18 20:20 20:20 23:34 WBC 7.2 RBC 4.26 Hgb 10.3 L Hct 37.7 MCV 89.1 D MCH 24.2 L MCHC 27.1 L RDW 19.4 H Plt Count 421 H Neut % (Auto) 81.6 H Lymph % (Auto) 12.8 L [place] % (Auto) 5.0 Eos % (Auto) 0.0 L Baso % (Auto) 0.6 Neut # (Auto) 5900 VBG pH VBG pCO2 VBG pO2 VBG HCO3 VBG Total CO2 VBG O2 Saturation VBG Base Excess Sodium 127 L D Potassium 5.4 H Chloride 89 L Carbon Dioxide 6 L* BUN 28 H Creatinine 0.60 Estimated GFR > 60.0 BUN/Creatinine Ratio 46.7 H Glucose > 625 H* D Lactate Calcium 9.8 Total Bilirubin 0.5 AST 37 H ALT 104 H Alkaline Phosphatase 287 H Total Protein 7.4 Albumin 4.7 Globulin 2.7 Albumin/Globulin Ratio 1.7 Procalcitonin Urine Opiates Screen Negative Ur Oxycodone Screen Negative Urine Methadone Screen Negative Ur Barbiturates Screen Negative U Tricyclic Antidepress Negative Ur Phencyclidine Scrn Negative Ur Amphetamines Screen Positive H U Methamphetamines Scrn Negative Ur MDMA Scrn (Ecstasy) Negative U Benzodiazepines Scrn Negative Urine Cocaine Screen Negative U Marijuana (THC) Screen Negative Ketones 9.99 H 01/31/18 01/31/18 01/31/18 01:03 01:07 01:07 WBC RBC Hgb Hct MCV MCH MCHC RDW Plt Count Neut % (Auto) Lymph % (Auto) [place] % (Auto) Eos % (Auto) Baso % (Auto) Neut # (Auto) VBG pH 7.13 L* VBG pCO2 25.6 L VBG pO2 40 VBG HCO3 8 L VBG Total CO2 9 L VBG O2 Saturation 60 L VBG Base Excess -21.0 L Sodium Potassium Chloride Carbon Dioxide BUN Creatinine Estimated GFR BUN/Creatinine Ratio Glucose Lactate 0.9 Calcium Total Bilirubin AST ALT Alkaline Phosphatase Total Protein Albumin Globulin Albumin/Globulin Ratio Procalcitonin 0.08 Urine Opiates Screen Ur Oxycodone Screen Urine Methadone Screen Ur Barbiturates Screen U Tricyclic Antidepress Ur Phencyclidine Scrn Ur Amphetamines Screen U Methamphetamines Scrn Ur MDMA Scrn (Ecstasy) U Benzodiazepines Scrn Urine Cocaine Screen U Marijuana (THC) Screen Ketones 01/31/18 01/31/18 01:07 01:07 WBC 9.8 RBC 4.15 Hgb 10.0 L Hct 35.4 L MCV 85.4 D MCH 24.0 L MCHC 28.1 L RDW 18.6 H Plt Count 486 H Neut % (Auto) Lymph % (Auto) [place] % (Auto) Eos % (Auto) Baso % (Auto) Neut # (Auto) VBG pH VBG pCO2 VBG pO2 VBG HCO3 VBG Total CO2 VBG O2 Saturation VBG Base Excess Sodium 134 L Potassium 5.0 Chloride 97 L Carbon Dioxide 6 L* BUN 28 H Creatinine 0.60 Estimated GFR > 60.0 BUN/Creatinine Ratio 46.7 H Glucose 723 H* Lactate Calcium 9.0 Total Bilirubin AST ALT Alkaline Phosphatase Total Protein Albumin Globulin Albumin/Globulin Ratio Procalcitonin Urine Opiates Screen Ur Oxycodone Screen Urine Methadone Screen Ur Barbiturates Screen U Tricyclic Antidepress Ur Phencyclidine Scrn Ur Amphetamines Screen U Methamphetamines Scrn Ur MDMA Scrn (Ecstasy) U Benzodiazepines Scrn Urine Cocaine Screen U Marijuana (THC) Screen Ketones Assessment & Plan Plan: Assessment/Plan Narrative: DKA H/O DM1T w/ omission of insulin. Recent history of bilateral axilla abscess, s /p I&D w/ potential concern for infection. - placed on hospitals DKA protocol - on insulin drip, titrate per protocol - Glucose checks Q1H - BMP Q4H - Change IVF to 1/2 NS at 200 ml/hr and then to D5 1/2 NS once BG reaches 250 - Replete electrolytes accordingly bilateral axillary abscesses 2/2 lymphadenitis, s/p I/D on 01/25/2018. Per patient completed course of Bactrim. This is questionable as patient has poor adherence w/ her other medications. - start on Clindamycin 600 mg IV Q8H - blood cx pending - Consider consulting I/D for further recommendations - Consult wound care Cellulitis, 3rd phalanx, right foot would contours positive for MRSA and strep agalactiae w/ prior admission - Clindamycin - Consult wound care Acute pain - received x1 dose of 0.5 mg of IV dilaudid, d/t GI symptoms; however, it would be ideal to avoid opioids in this patient - Toradol 15 mg Q6H x6 total doses Elevated LFTs AST 37, ALT 104, Alk Phos 287, and a setting of uncontrolled diabetes - Trend liver fx - Avoid hepatotoxic agents Methamphetamine dependence - monitor for symptoms of withdrawal - clonidine 0.1 mg Q6H Fibromyalgia - Cymbalta dose adjusted, up titrated Homeless - social work consult
[2018-01-31] MEDS: SODIUM CHLORIDE 0.45% 1,000 ML 200 ML IV (04:01)
[2018-01-31] MEDS: HYDROMORPHONE 0.5 MG INJ IV (04:02)
[2018-01-31 04:23] LABS: Blood Urea Nitrogen 23 mg/dL (7-17); Calcium 8.4 mg/dL (8.4-10.2); Carbon Dioxide 12 mmol/L (22-32); Chloride 106 mmol/L (98-107); Estimated Glomerular Filt Rate > 60.0 mL/min (>60); Glucose 384 mg/dL (70-100); HEMOLYSIS < 15 (0-50); Potassium 4.4 mmol/L (3.4-5.1); Sodium 140 mmol/L (137-145)
[2018-01-31] MEDS: METOCLOPRAMIDE 10 MG/2 ML INJ IV (04:31)
[2018-01-31] MEDS: cloNIDine 0.1 MG TABLET PO ×4 (04:50→22:32)
[2018-01-31] MEDS: KETOROLAC 30 MG/ML VIAL 15 MG IV (04:51)
[2018-01-31] MEDS: DEXTROSE 5%-0.45% NS 1,000 ML 150 ML IV (06:13)
[2018-01-31] MEDS: CLINDAMYCIN 600 MG/50 ML PIGGYBACK 50 MG IV (06:14)
--- NOTE | 2018-01-31 07:18 | PC.NURSE ---
NOC Shift: Pt admitted for DKA, insulin gtt protocol initiated w/IVF's per orders. NPO except ice chips. Pt AAOx3, beligerent and hostile to staff when not given what she wants, complains of pain re: armpit wounds. TRANSMISSIONS SYSTEMS OPERATOR aware and in to assess pt. VSS, ST on tele. Nata. Pain meds given as ordered and discussed w/pt pt states understanding, however continues to scream and yell in room. MRSA positive, contact isolation intitaiate. Left armpit dsg changed, pt refused to allow RN to change right due to pain. ICU care.
[2018-01-31] MEDS: DULOXETINE 30 MG CAPSULE 60 MG PO (08:30)
[2018-01-31] MEDS: GABAPENTIN 600 MG TABLET PO ×3 (08:30→20:54)
[2018-01-31] MEDS: HYDROMORPHONE 2 MG TABLET PO ×4 (09:05→23:35)
--- NOTE | 2018-01-31 10:22 | PC.NURSE ---
Addendum entered by Bettie Gomez R.N. 01/31/18 14:52: pt made call for interview with [facility] and is interested in d/c-ing to there tomorrow at time of discharge- faxing medical records per their request Original Note: Addendum entered by Bettie Gomez R.N. 01/31/18 13:56: PT HAS VOIDED POST REMOVAL OF CATHETER- FREQUENT REQUEST FOR FOOD AND PAIN RX- BEHAVIOR HAS BEEN IMPULSIVE BUT MANAGABLE DURING THIS SHIFT- ALLOWED STAFF TO CLEAN HER UP AND ANION GAP IS CLOSED INITIATED SUB q INSULIN COVERAGE AND CHANGED IT TO [facility] ALLOWING HER TO HAVE CARB CONSISTENT DIET- DRESING CHANGED OT RIGHT UNDERARM WITH MD AT BEDSIDE Original Note: PT BEGAN SHIFT BY [employer] AND THROWING PAPER CUPS TOWARD STAFF- SCREAMING OUT IN ROOM- FIRM LIMITS SET BY THIS RN AND THUS FAR PT HAS BEEN MOSTLY COMPLIANT. PO PAIN RX GIVEN PER MD ORDER AND INSULIN GTT ADJUSTED PER PROTOCOL- PT WISHES TO CALL TO [facility] LATER THIS SHIFT AND SEEK TREATMENT/PLACEMENT FOLLOWING DISCHARGE FROM - WHICH IS TENTATIVELY SCHEDULED FOR TOMORROW- DUNHAM REMOVED PER PT REQUEST-
[2018-01-31] MEDS: KETOROLAC 15 MG/ML VIAL IV ×2 (11:47→20:38)
[2018-01-31 11:55] LABS: BUN Creatinine Ratio 42.5 (6-22); Blood Urea Nitrogen 17 mg/dL (7-17); Calcium 8.1 mg/dL (8.4-10.2); Carbon Dioxide 22 mmol/L (22-32); Chloride 103 mmol/L (98-107); Estimated Glomerular Filt Rate > 60.0 mL/min (>60); Glucose 201 mg/dL (70-100); HEMOLYSIS < 15 (0-50); Potassium 3.9 mmol/L (3.4-5.1); Sodium 136 mmol/L (137-145)
[2018-01-31] MEDS: INSULIN ASPART 100 UNIT/ML INSULN PEN 10 UNIT SUBCUT ×2 (12:59→17:14)
[2018-01-31] MEDS: INSULIN GLARGINE 100 UNIT/ML 3ML PEN 75 UNIT SUBCUT ×2 (13:00→20:46)
[2018-01-31] MEDS: INSULIN ASPART 100 UNIT/ML INSULN PEN SUBCUT (17:14)
--- NOTE | 2018-01-31 17:27 | P.PN_ITS ---
Subjective Date Patient Seen: 01/31/18 Interval history: Patient complaining of right axillary pain and wants to eat. Exam Vital Signs (past 8 hours): - 01/31/18 09:57 01/31/18 13:26 01/31/18 15:10 Temperature 99.0 F 98.3 F Pulse Rate 108 H 101 H 90 Respiratory Rate 16 27 H 18 Blood Pressure 107/66 108/65 Pulse Oximetry 96 01/31/18 16:12 Temperature Pulse Rate 91 H Respiratory Rate Blood Pressure 117/77 Pulse Oximetry Oxygen Delivery Method Room Air Oxygen Flow Rate 0 Narrative Exam Narrative: GENERAL: Alert, complaining of pain HEENT: Head normocephalic, atraumatic. Mucous membranes moist. CHEST: Clear to auscultation bilaterally. CARDIAC: Regular rate and rhythm. ABDOMEN: Nondistended, soft, nontender EXTREMITIES: no edema. NEUROLOGICAL: Nonfocal SKIN: Bilateral axilla without significant erythema, fluctuance, swelling or drainage. The right axillary postop wound remains packed. Objective Labs Result Diagrams: 01/31/18 01:07 01/31/18 Unknown Labs: Laboratory Results - last 24 hr 01/30/18 01/30/18 01/30/18 20:20 20:20 23:34 WBC 7.2 RBC 4.26 Hgb 10.3 L Hct 37.7 MCV 89.1 D MCH 24.2 L MCHC 27.1 L RDW 19.4 H Plt Count 421 H Neut % (Auto) 81.6 H Lymph % (Auto) 12.8 L [place] % (Auto) 5.0 Eos % (Auto) 0.0 L Baso % (Auto) 0.6 Neut # (Auto) 5900 VBG pH VBG pCO2 VBG pO2 VBG HCO3 VBG Total CO2 VBG O2 Saturation VBG Base Excess Sodium 127 L D Potassium 5.4 H Chloride 89 L Carbon Dioxide 6 L* BUN 28 H Creatinine 0.60 Estimated GFR > 60.0 BUN/Creatinine Ratio 46.7 H Glucose > 625 H* D Lactate Calcium 9.8 Total Bilirubin 0.5 AST 37 H ALT 104 H Alkaline Phosphatase 287 H Total Protein 7.4 Albumin 4.7 Globulin 2.7 Albumin/Globulin Ratio 1.7 Procalcitonin Nasal Screen MRSA (PCR) Urine Opiates Screen Negative Ur Oxycodone Screen Negative Urine Methadone Screen Negative Ur Barbiturates Screen Negative U Tricyclic Antidepress Negative Ur Phencyclidine Scrn Negative Ur Amphetamines Screen Positive H U Methamphetamines Scrn Negative Ur MDMA Scrn (Ecstasy) Negative U Benzodiazepines Scrn Negative Urine Cocaine Screen Negative U Marijuana (THC) Screen Negative Ketones 9.99 H 01/31/18 01/31/18 01/31/18 01:03 01:07 01:07 WBC RBC Hgb Hct MCV MCH MCHC RDW Plt Count Neut % (Auto) Lymph % (Auto) [place] % (Auto) Eos % (Auto) Baso % (Auto) Neut # (Auto) VBG pH 7.13 L* VBG pCO2 25.6 L VBG pO2 40 VBG HCO3 8 L VBG Total CO2 9 L VBG O2 Saturation 60 L VBG Base Excess -21.0 L Sodium Potassium Chloride Carbon Dioxide BUN Creatinine Estimated GFR BUN/Creatinine Ratio Glucose Lactate 0.9 Calcium Total Bilirubin AST ALT Alkaline Phosphatase Total Protein Albumin Globulin Albumin/Globulin Ratio Procalcitonin 0.08 Nasal Screen MRSA (PCR) Urine Opiates Screen Ur Oxycodone Screen Urine Methadone Screen Ur Barbiturates Screen U Tricyclic Antidepress Ur Phencyclidine Scrn Ur Amphetamines Screen U Methamphetamines Scrn Ur MDMA Scrn (Ecstasy) U Benzodiazepines Scrn Urine Cocaine Screen U Marijuana (THC) Screen Ketones 01/31/18 01/31/18 01/31/18 01:07 01:07 02:35 WBC 9.8 RBC 4.15 Hgb 10.0 L Hct 35.4 L MCV 85.4 D MCH 24.0 L MCHC 28.1 L RDW 18.6 H Plt Count 486 H Neut % (Auto) Lymph % (Auto) [place] % (Auto) Eos % (Auto) Baso % (Auto) Neut # (Auto) VBG pH VBG pCO2 VBG pO2 VBG HCO3 VBG Total CO2 VBG O2 Saturation VBG Base Excess Sodium 134 L Potassium 5.0 Chloride 97 L Carbon Dioxide 6 L* BUN 28 H Creatinine 0.60 Estimated GFR > 60.0 BUN/Creatinine Ratio 46.7 H Glucose 723 H* Lactate Calcium 9.0 Total Bilirubin AST ALT Alkaline Phosphatase Total Protein Albumin Globulin Albumin/Globulin Ratio Procalcitonin Nasal Screen MRSA (PCR) Positive for mrsa H Urine Opiates Screen Ur Oxycodone Screen Urine Methadone Screen Ur Barbiturates Screen U Tricyclic Antidepress Ur Phencyclidine Scrn Ur Amphetamines Screen U Methamphetamines Scrn Ur MDMA Scrn (Ecstasy) U Benzodiazepines Scrn Urine Cocaine Screen U Marijuana (THC) Screen Ketones 01/31/18 01/31/18 01/31/18 03:15 04:00 Unknown WBC RBC Hgb Hct MCV MCH MCHC RDW Plt Count Neut % (Auto) Lymph % (Auto) [place] % (Auto) Eos % (Auto) Baso % (Auto) Neut # (Auto) VBG pH VBG pCO2 VBG pO2 VBG HCO3 VBG Total CO2 VBG O2 Saturation VBG Base Excess Sodium 140 136 L Potassium 4.4 3.9 Chloride 106 103 Carbon Dioxide 12 L 22 BUN 23 H 17 Creatinine 0.50 L 0.40 L Estimated GFR > 60.0 > 60.0 BUN/Creatinine Ratio 46.0 H 42.5 H Glucose Cancelled 384 H D 201 H D Lactate Calcium 8.4 8.1 L Total Bilirubin AST ALT Alkaline Phosphatase Total Protein Albumin Globulin Albumin/Globulin Ratio Procalcitonin Nasal Screen MRSA (PCR) Urine Opiates Screen Ur Oxycodone Screen Urine Methadone Screen Ur Barbiturates Screen U Tricyclic Antidepress Ur Phencyclidine Scrn Ur Amphetamines Screen U Methamphetamines Scrn Ur MDMA Scrn (Ecstasy) U Benzodiazepines Scrn Urine Cocaine Screen U Marijuana (THC) Screen Ketones Assessment & Plan Plan: Assessment/Plan Narrative: 1. Diabetic ketoacidosis: Resolved as of late this morning. Patient started back on her routine insulin, diabetes diet, and taken off insulin drip. IV Hep- Lock. 2. Bilateral axillary abscesses, status post I and D 01/25/2018. Cultures grew MRSA sensitive to Bactrim and resistant to clindamycin. She is complaining of axillary pain and which appears out of proportion to exam findings. Does not need further antibiotics for this infection. 3. Cellulitis, 3rd phalanx, right foot: Cultures on prior admission positive for MRSA and strep agalactiae. Resume Bactrim DS. 4. Acute pain not controlled with Toradol: Use oral Dilaudid as needed in hospital mainly to facilitate care but will not need to discharge on narcotic. She has fibromyalgia diagnosis and on Cymbalta, up titrated. 5. Transaminitis: Trend liver function, avoid hepatotoxic agents 6. Methamphetamine dependence: On clonidine by mouth. Care management assisting patient with outpatient drug detox options. Disposition: Patient with resolution of DKA and infections can be managed with oral antibiotic. Likely discharge tomorrow, Wednesday.
[2018-01-31 19:34] LABS: Clostridium Difficile Tox PCR Negative for C. diff
[2018-01-31 20:38] LABS: BUN Creatinine Ratio 32.5 (6-22); Blood Urea Nitrogen 13 mg/dL (7-17); Calcium 7.8 mg/dL (8.4-10.2); Carbon Dioxide 27 mmol/L (22-32); Chloride 102 mmol/L (98-107); Estimated Glomerular Filt Rate > 60.0 mL/min (>60); Glucose 134 mg/dL (70-100); HEMOLYSIS < 15 (0-50); Potassium 3.5 mmol/L (3.4-5.1); Sodium 138 mmol/L (137-145)
[2018-01-31] MEDS: TRIMETH/SULFA 160/800 (DS) TABLET 1 TAB PO (20:54)
[2018-02-01] MEDS: KETOROLAC 15 MG/ML VIAL IV ×3 (02:24→13:27)
[2018-02-01] MEDS: SODIUM CHLORIDE 0.9% FLUSH 10 ML IV ×2 (02:24→07:47)
[2018-02-01 04:07] VITALS: PULSE 87
[2018-02-01] MEDS: cloNIDine 0.1 MG TABLET PO ×2 (04:07→12:29)
[2018-02-01] MEDS: HYDROMORPHONE 2 MG TABLET PO ×3 (04:07→12:29)
--- NOTE | 2018-02-01 06:17 | PC.NURSE ---
Patient has been mostly calm and cooperative, using call light appropriately, still requests snacks frequently. CBG checked at 0200 = 215. PO Dilaudid given approximately Q4h prn per her request for armpit pain IV Toradol also given. Dressings D/I.
[2018-02-01 06:27] VITALS: BP 86/45; PULSE 83; RESP 20; TEMP 36.6; O2SAT 95
[2018-02-01 07:41] VITALS: BP 111/51; PULSE 89; RESP 15; TEMP 37.1; O2SAT 96
[2018-02-01] MEDS: INSULIN ASPART 100 UNIT/ML INSULN PEN 10 UNIT SUBCUT (07:47)
[2018-02-01] MEDS: INSULIN ASPART 100 UNIT/ML INSULN PEN SUBCUT (07:48)
[2018-02-01] MEDS: DULOXETINE 30 MG CAPSULE 60 MG PO (07:49)
[2018-02-01] MEDS: GABAPENTIN 600 MG TABLET PO ×2 (07:50→13:13)
[2018-02-01] MEDS: INSULIN GLARGINE 100 UNIT/ML 3ML PEN 75 UNIT SUBCUT (07:50)
[2018-02-01] MEDS: TRIMETH/SULFA 160/800 (DS) TABLET 1 TAB PO (08:13)
[2018-02-01 12:25] VITALS: BP 145/98; PULSE 92; RESP 14; O2SAT 98
--- NOTE | 2018-02-01 12:53 | CM.SWNOTE ---
DCP/DRYING ROOM OPERATOR Note: Received notification from RN that patient is medically stable for discharge today. RN reports to DRYING ROOM OPERATOR that patient no longer [facility]. Patient prefers to return to [place]. DRYING ROOM OPERATOR met with patient to discuss d/c plan. Patient reports that she called [facility] yesterday and that they told her they would not have bed for a few days. Encouraged patient to call again this AM because bed availability changes hourly. Patient reports no I just want to return to [place]. Asked HELIO Ellison to attempt to arrange transport through Medicaid. DRYING ROOM OPERATOR received return vm from Medicaid indicating that they could not accommodate request. No reason given. Attempted to call them back and unable to reach. Anticipate that they will not pick patient up because she has the ability to take the bus. Plus her drop off destination in [place] is [employer]. Patient strongly encouraged to call [facility] for mental health assistance and [facility] for mental health/detox bed. [facility] has all needed information from this admit. Signed consent signed by patient. Patient denies current suicidal or homicidal ideation. No additional needs identified. Patient notified that [facility] cannot continue to provide patient with taxi vouchers upon discharge. Patient aware that [facility] can assist her with housing, mental health, and bus pass for the future. Completed taxi voucher form and provided to RN. She will call [facility] to provide transport for patient to return to [facility] form [facility] used. P: D/C back to [facility] today via [facility] [employer] voucher. YNES Alicia
[2018-02-01 13:21] VITALS: BMI 20.7
--- NOTE | 2018-02-01 14:02 | PC.NURSE ---
Discharge Note Discharged to [place] via [employer] taxi at 1345. Escorted to hospital exit via wheelchair by staff member. All belongings sent with pt (see d/c assessment for details). Pt continued to decline Crisis Center and any further resources. Packing and dressings to bilateral axilla prior to d/c, cleansed with NS.
== END 2018-02-01 13:45 | disposition home or self-care (01) | DRG 420 ==
LOC: ED 01-31 01:38 → ICU 01-31 01:47
PROVIDERS: Internal Medicine; Admitting Provider Nurse Practitioner Gerontology; Emergency Provider Emergency Medicine; Visit Provider Nurse Practitioner Gerontology
DX: E10.10 Type 1 diabetes mellitus with ketoacidosis without coma (principal); F15.20 Other stimulant dependence, uncomplicated; L04.2 Acute lymphadenitis of upper limb; L03.031 Cellulitis of right toe; E10.51 Type 1 diabetes mellitus with diabetic peripheral angiopathy without gangrene; I10 Essential (primary) hypertension; T38.3X6A Underdosing of insulin and oral hypoglycemic [antidiabetic] drugs, initial encounter; Z91.128 Patient's intentional underdosing of medication regimen for other reason; Z59.0 Homelessness; M79.7 Fibromyalgia; F31.9 Bipolar disorder, unspecified; F43.10 Post-traumatic stress disorder, unspecified; F90.9 Attention-deficit hyperactivity disorder, unspecified type; I73.9 Peripheral vascular disease, unspecified; R94.5 Abnormal results of liver function studies
CPT/HCPCS: 36415; 36591; 51701; 71045; 80048; 80053; 80305; 81003; 81025; 82009; 82805; 82962; 83605; 84145; 85025; 85027; 87040; 87493; 87797; 96361; 96365; 96375; 96376; 99285; J1170; J1885; J2250; J2765; J7050

== ENCOUNTER 2018-02-21 14:43 | Inpatient (IN) | payer OTHER, MEDICAID, SELFPAY ==
[2018-01-31 02:51] VITALS: BMI 22.1
[2018-02-21 14:55] VITALS: BP 125/81; PULSE 120; RESP 18; TEMP 36.9; O2SAT 96
[2018-02-21 15:18] VITALS: BP 134/82; PULSE 115; RESP 16; O2SAT 95
--- NOTE | 2018-02-21 15:30 | ED_ITS ---
HPI - Wound/Laceration <TREVOR Castro - Last Filed: 02/21/18 22:04> General Chief Complaint: Wound/Laceration Stated Complaint: Abcess Time Seen by Provider: 02/21/18 15:29 Source: patient Mode of arrival: ambulatory Limitations: no limitations History of Present Illness HPI narrative: 37-year-old female with history of substance abuse type 1 diabetes and is an everyday smoker here for complaint of having pain to her axillary area bilaterally with drainage from the right axillary area and right middle toe pain over the past couple of days. She was recently discharged from [facility] for similar symptoms. She was placed on oral antibiotics at discharge as she has been taking Levaquin and also Bactrim DS. He reports yesterday she had some drainage from the right axillary area. She denies any trauma to the right great toe. He denies any fevers or chills. Positive p.o. intake. She denies any urinary symptoms. Related Data Home Medications Medication Instructions Recorded Confirmed duloxetine 60 mg PO DAILY #0 04/16/17 02/21/18 amitriptyline 25 mg PO BEDTIME 02/21/18 02/21/18 aspirin 81 mg PO DAILY 02/21/18 02/21/18 cilostazol 100 mg PO BID 02/21/18 02/21/18 clonidine HCl 0.1 mg PO BID 02/21/18 02/21/18 hydromorphone 2 mg PO DAILY PRN 02/21/18 02/21/18 ibuprofen 600 mg PO Q6H PRN 02/21/18 02/21/18 insulin aspart U-100 [Novolog 15 unit SUBCUT TID 02/21/18 02/21/18 Flexpen U-] insulin glargine [Lantus U-] 40 unit SUBCUT QPM 02/21/18 02/21/18 levofloxacin 500 mg PO DAILY 02/21/18 02/21/18 metoclopramide HCl 10 mg PO ACHS 02/21/18 02/21/18 metoprolol succinate 25 mg PO BID 02/21/18 02/21/18 sulfamethoxazole-trimethoprim 2 tab PO BID 02/21/18 02/21/18 Previous Rx's Medication Instructions Recorded Syringes: 1cc Insulin Syringes 1 syr SQ 5XD #100 unit 02/01/18 with [place] gabapentin [Neurontin] 600 mg PO TID #90 tab 02/01/18 Allergies Allergy/AdvReac Type Severity Reaction Status Date / Time codeine [CODEINE] Allergy Severe Hives Verified 02/21/18 22:40 hydrocodone [HYDROCODONE] Allergy Severe Hives Verified 02/21/18 22:40 nitrofurantoin Allergy Severe Hives Verified 02/21/18 22:40 [From MACROBID] adhesive tape Allergy Intermediate Hives Verified 02/21/18 22:40 morphine [MORPHINE] AdvReac Intermediate itching Verified 02/21/18 22:40 fentanyl AdvReac Mild itching Verified 02/21/18 22:40 Review of Systems <TREVOR Castro - Last Filed: 02/21/18 22:04> Constitutional Denies chills, Denies fever(s), Denies lethargy and Denies weakness Eyes Denies change in vision, Denies eye discharge, Denies irritation and Denies loss of vision ENT Ears, Nose, Mouth, and Throat: Denies change in voice, Denies neck pain and Denies sore throat Cardiovascular Denies chest pain, Denies irregular heart rhythm, Denies lightheadedness, Denies palpitations, Denies dyspnea, Denies dyspnea on exertion and Denies orthopnea Respiratory Denies cough, Denies dyspnea, Denies dyspnea on exertion and Denies wheezing Gastrointestinal Gastrointestinal: Denies abdominal pain, Denies change in bowel habits, Denies diarrhea, Denies nausea and Denies vomiting Genitourinary Denies hematuria, Denies flank pain, Denies urinary incontinence and Denies urinary urgency Musculoskeletal Denies neck pain Comments: Pain to right middle toe. Drainage from abscesses to axillary areas bilaterally Integumentary/Breasts Denies pruritus, Denies erythema, Denies rash and Denies wounds Neurologic Denies confusion, Denies loss of vision and Denies weakness Psychiatric Denies anxiety, Denies confusion, Denies depression, Denies homicidal ideation and Denies suicidal ideation Endocrine Denies palpitations Hematologic/Lymphatic Denies easy bruising Allergic/Immunologic Denies wheezing Exam <TREVOR Castro - Last Filed: 02/21/18 22:04> Initial Vital Signs Initial Vital Signs: Vital Signs Temperature 98.4 F 02/21/18 14:55 Pulse Rate 120 H 02/21/18 14:55 Respiratory Rate 18 02/21/18 14:55 Blood Pressure 125/81 02/21/18 14:55 Pulse Oximetry 96 02/21/18 14:55 Const General: cooperative and well developed Nutritional Appearance: well nourished Orientation: alert, awake, oriented x3 and not confused [facility] Mouth: oral mucosae normal and moist mucous membranes Eyes General: appearance normal, both eyes and all related structures Eyelids: eyelids normal Conjunctivae: conjunctivae normal Sclera: sclerae normal Pupils: PERRL EOM: EOM intact bilaterally Resp Effort & Inspection: normal respiratory effort, able to speak in complete sentences, no respiratory distress and no use of accessory muscles Auscultation: clear to auscultation bilaterally, no rales, no rhonchi and no wheezes Cardio Rate: regular rate Rhythm: regular rhythm Heart Sounds: no click, no gallops, no murmurs and no rubs Pulses: normal peripheral pulses Skin General: no rashes or lesions noted, No jaundice and No petechiae Neuro General: alert, oriented x3, gait normal and no focal motor deficits Speech: speech normal Extrem Other: Slight erythema to the right middle toe. No signs of infection at this point. Distal sensation is intact. Distal cap refill less than 2 sec. Full range of motion. Bilateral axilla with no erythema. No drainage. No abscess is appreciated on exam. No fluctuance or induration distal sensation is intact. Distal range of motions intact. Distal cap refill less than 2 sec. <Kunal Roe DO - Last Filed: 02/21/18 23:58> Initial Vital Signs Initial Vital Signs: Vital Signs Temperature 98.4 F 02/21/18 14:55 Pulse Rate 120 H 02/21/18 14:55 Respiratory Rate 18 02/21/18 14:55 Blood Pressure 125/81 02/21/18 14:55 Pulse Oximetry 96 02/21/18 14:55 Course <TREVOR Castro - Last Filed: 02/21/18 22:04> Orders Ordered: ED Orders 02/21/18 15:45 Complete Blood Count AUTO DIFF Stat Comprehensive Metabolic Panel Stat D Dimer Stat Lactate (Lactic Acid) Stat Lipase Stat Procalcitonin Routine Venous Blood Gas Stat 02/21/18 16:15 Test Urine Stat Urinalysis and Microscopic Stat 02/21/18 16:30 Arterial Blood Gas Stat 02/21/18 17:10 XR chest 1V Stat 02/21/18 17:36 CT angio chest PE protocol Stat 02/21/18 20:40 MRSA PCR Stat 02/21/18 20:58 Consult to [employer] Helper Routine 02/21/18 21:41 Blood Culture Stat 02/22/18 Basic Metabolic Panel Routine Iron Profile (w/ % Saturation) Routine Magnesium Routine 02/22/18 09:04 Complete Blood Count AUTO DIFF Routine Acetaminophen (Tylenol) 650 mg PO Q6HR PRN PRN Reason: As Needed for Fever/Mild Pain Last Admin: 02/21/18 21:50 Dose: 650 mg Albuterol/Ipratropium (Duoneb) 3 ml INH RTQ6HR PRN PRN Reason: Shortness Of Breath Amitriptyline HCl (Elavil) 25 mg PO BEDTIME CASS Aspirin (Aspirin Ec) 81 mg PO DAILY CASS Clonidine HCl (Catapres) 0.1 mg PO Q6H CASS Dextrose (D50w) 25 gm IV PRN PRN PRN Reason: Hypoglycemia Docusate Sodium (Colace) 100 mg PO BID PRN PRN Reason: Constipation Duloxetine HCl (Cymbalta) 60 mg PO DAILY CASS Gabapentin (Neurontin) 600 mg PO TID CASS Hydromorphone HCl (Dilaudid) 0.5 mg IV Q4H PRN PRN Reason: Pain, Severe (7-10) Sodium Chloride (Normal Saline 0.9%) 1,000 mls @ 75 mls/hr IV CONT CASS Last Admin: 02/21/18 22:27 Dose: 75 mls/hr Levofloxacin (Levaquin) 750 mg in 150 mls @ 100 mls/hr IV Q24H CASS Ibuprofen (Advil) 600 mg PO Q6H PRN PRN Reason: pain, mild Insulin Aspart (Novolog Flexpen) 0 unit SUBCUT ACHS REPLACED BY [facility]; Protocol Last Admin: 02/21/18 23:07 Dose: 7 unit Trimethoprim/Sulfamethoxazole (Bactrim Ds) 2 tab PO BID CASS Discontinued Medications Acetaminophen (Tylenol) 975 mg PO NOW ONE Stop: 02/21/18 17:17 Last Admin: 02/21/18 17:17 Dose: 975 mg Hydromorphone HCl (Dilaudid) 0.5 mg IV NOW ONE Stop: 02/21/18 16:23 Last Admin: 02/21/18 16:37 Dose: 0.5 mg Hydromorphone HCl (Dilaudid) 0.5 mg IV NOW ONE Stop: 02/21/18 20:03 Last Admin: 02/21/18 20:08 Dose: 0.5 mg Sodium Chloride (Normal Saline 0.9%) 1,000 mls @ 1,000 mls/hr IV BOLUS ONE Stop: 02/21/18 17:15 Last Infusion: 02/21/18 17:41 Dose: 0 mls/hr Admin: 02/21/18 16:39 Dose: 1,000 mls/hr Levofloxacin (Levaquin) 750 mg in 150 mls @ 100 mls/hr IV NOW ONE Stop: 02/21/18 20:47 Last Infusion: 02/21/18 20:22 Dose: 100 mls/hr Admin: 02/21/18 19:31 Dose: 100 mls/hr Insulin Aspart (Novolog Flexpen) 0 unit SUBCUT [facility] REPLACED BY [facility]; Protocol Insulin Human Regular (Humulin R) 5 unit IV NOW ONE Stop: 02/21/18 16:26 Last Admin: 02/21/18 16:39 Dose: 5 unit Vital Signs - 8 hr 02/21/18 16:40 02/21/18 19:35 02/21/18 20:49 Temperature 98.0 F 98.3 F Pulse Rate 119 H 113 H 111 H Respiratory Rate 20 17 20 Blood Pressure 129/75 Blood Pressure [Left Arm] 130/80 117/56 L Pulse Oximetry 95 96 95 <Kunal Roe DO - Last Filed: 02/21/18 23:58> Orders Ordered: ED Orders 02/21/18 15:45 Complete Blood Count AUTO DIFF Stat Comprehensive Metabolic Panel Stat D Dimer Stat Lactate (Lactic Acid) Stat Lipase Stat Procalcitonin Routine Venous Blood Gas Stat 02/21/18 16:15 Test Urine Stat Urinalysis and Microscopic Stat 02/21/18 16:30 Arterial Blood Gas Stat 02/21/18 17:10 XR chest 1V Stat 02/21/18 17:36 CT angio chest PE protocol Stat 02/21/18 20:40 MRSA PCR Stat 02/21/18 20:58 Consult to [employer] Operator Helper Routine 02/21/18 21:41 Blood Culture Stat 02/22/18 Basic Metabolic Panel Routine Iron Profile (w/ % Saturation) Routine Magnesium Routine 02/22/18 09:04 Complete Blood Count AUTO DIFF Routine Acetaminophen (Tylenol) 650 mg PO Q6HR PRN PRN Reason: As Needed for Fever/Mild Pain Last Admin: 02/21/18 21:50 Dose: 650 mg Albuterol/Ipratropium (Duoneb) 3 ml INH RTQ6HR PRN PRN Reason: Shortness Of Breath Amitriptyline HCl (Elavil) 25 mg PO BEDTIME REPLACED BY [facility] Aspirin (Aspirin Ec) 81 mg PO DAILY CASS Clonidine HCl (Catapres) 0.1 mg PO Q6H CASS Dextrose (D50w) 25 gm IV PRN PRN PRN Reason: Hypoglycemia Docusate Sodium (Colace) 100 mg PO BID PRN PRN Reason: Constipation Duloxetine HCl (Cymbalta) 60 mg PO DAILY REPLACED BY [facility] Gabapentin (Neurontin) 600 mg PO TID CASS Hydromorphone HCl (Dilaudid) 0.5 mg IV Q4H PRN PRN Reason: Pain, Severe (7-10) Sodium Chloride (Normal Saline 0.9%) 1,000 mls @ 75 mls/hr IV CONT CASS Last Admin: 02/21/18 22:27 Dose: 75 mls/hr Levofloxacin (Levaquin) 750 mg in 150 mls @ 100 mls/hr IV Q24H CASS Ibuprofen (Advil) 600 mg PO Q6H PRN PRN Reason: pain, mild Insulin Aspart (Novolog Flexpen) 0 unit SUBCUT ACHS REPLACED BY [facility]; Protocol Last Admin: 02/21/18 23:07 Dose: 7 unit Trimethoprim/Sulfamethoxazole (Bactrim Ds) 2 tab PO BID CASS Discontinued Medications Acetaminophen (Tylenol) 975 mg PO NOW ONE Stop: 02/21/18 17:17 Last Admin: 02/21/18 17:17 Dose: 975 mg Hydromorphone HCl (Dilaudid) 0.5 mg IV NOW ONE Stop: 02/21/18 16:23 Last Admin: 02/21/18 16:37 Dose: 0.5 mg Hydromorphone HCl (Dilaudid) 0.5 mg IV NOW ONE Stop: 02/21/18 20:03 Last Admin: 02/21/18 20:08 Dose: 0.5 mg Sodium Chloride (Normal Saline 0.9%) 1,000 mls @ 1,000 mls/hr IV BOLUS ONE Stop: 02/21/18 17:15 Last Infusion: 02/21/18 17:41 Dose: 0 mls/hr Admin: 02/21/18 16:39 Dose: 1,000 mls/hr Levofloxacin (Levaquin) 750 mg in 150 mls @ 100 mls/hr IV NOW ONE Stop: 02/21/18 20:47 Last Infusion: 02/21/18 20:22 Dose: 100 mls/hr Admin: 02/21/18 19:31 Dose: 100 mls/hr Insulin Aspart (Novolog Flexpen) 0 unit SUBCUT ACHS CASS; Protocol Insulin Human Regular (Humulin R) 5 unit IV NOW ONE Stop: 02/21/18 16:26 Last Admin: 02/21/18 16:39 Dose: 5 unit Vital Signs - 8 hr 02/21/18 16:40 02/21/18 19:35 02/21/18 20:49 Temperature 98.0 F 98.3 F Pulse Rate 119 H 113 H 111 H Respiratory Rate 20 17 20 Blood Pressure 129/75 Blood Pressure [Left Arm] 130/80 117/56 L Pulse Oximetry 95 96 95 MDM - Wound/Laceration <TREVOR Castro - Last Filed: 02/21/18 22:04> Lab Data Result diagrams: 02/21/18 15:45 02/21/18 15:45 Lab Results 02/21/18 02/21/18 02/21/18 Range/Units 15:45 15:45 15:45 WBC 17.7 H (4.5-11.0) X10^3/uL RBC 3.35 L (4.0-5.2) X10^6/uL Hgb 7.7 L (12.0-16.0) g/dL Hct 25.0 L (36-46) % MCV 74.6 L (80-100) fL MCH 23.0 L (26-34) PG MCHC 30.8 (30-36) % RDW 18.8 H (11.6-14.8) % Plt Count 637 H (150-400) X10^3/uL Neut % (Auto) 90.6 H (50-75) % Lymph % (Auto) 5.9 L (25-40) % [place] % (Auto) 2.8 L (3-14) % Eos % (Auto) 0.1 L (2-4) % Baso % (Auto) 0.6 (0-2) % Neut # (Auto) 00130 H (5950-7907) /uL D-Dimer (<230) ng/mL ABG pH (7.35-7.45) ABG pCO2 (35-45) mmHg ABG pO2 (80-105) mmHg ABG HCO3 (23-27) mmol/L ABG Total CO2 (23-27) mmol/L ABG O2 Saturation (95-100) % ABG Base Excess (-2-3) mmol/L FiO2 Sodium 133 L (137-145) mmol/L Potassium 4.4 (3.4-5.1) mmol/L Chloride 93 L (98-107) mmol/L Carbon Dioxide 25 (22-32) mmol/L BUN 20 H (7-17) mg/dL Creatinine 0.50 L (0.52-1.04) mg/dL Estimated GFR > 60.0 (>60) mL/min BUN/Creatinine Ratio 40.0 H (6-22) Glucose 408 H (70-100) mg/dL Lactate 1.4 (0.7-2.1) mmol/L Calcium 9.1 (8.4-10.2) mg/dL Total Bilirubin 0.6 (0.2-1.3) mg/dL AST 34 (14-36) IU/L ALT 22 (9-52) IU/L Alkaline Phosphatase 152 H (38-126) U/L Total Protein 8.0 (6.3-8.2) g/dL Albumin 4.3 (3.5-5.0) g/dL Globulin 3.7 (1.7-4.1) g/dL Albumin/Globulin Ratio 1.2 (1.0-2.8) Lipase 60 (23-300) U/L Procalcitonin (<0.5) ng/mL Urine Color Urine Appearance Urine pH (4.5-8.0) Ur Specific [place] (1.000-1.035) Urine Protein (Negative) Urine Glucose (UA) (Normal) g/dL Urine Ketones (NEGATIVE) Urine Occult Blood (Negative) Urine Nitrate (Negative) Urine Bilirubin (NEGATIVE) Urine Urobilinogen (0.2) E.U./dL Ur Leukocyte Esterase (NEGATIVE) Urine RBC (0-5/HPF) Urine WBC (0-5/HPF) Ur Squamous Epith Cells Urine Bacteria (None) Ur Culture Indicated? Micro UA Comment Urine Test (Negative) Nasal Screen MRSA (PCR) (Negative) 02/21/18 02/21/18 02/21/18 Range/Units 15:45 15:45 16:15 WBC (4.5-11.0) X10^3/uL RBC (4.0-5.2) X10^6/uL Hgb (12.0-16.0) g/dL Hct (36-46) % MCV (80-100) fL MCH (26-34) PG MCHC (30-36) % RDW (11.6-14.8) % Plt Count (150-400) X10^3/uL Neut % (Auto) (50-75) % Lymph % (Auto) (25-40) % [place] % (Auto) (3-14) % Eos % (Auto) (2-4) % Baso % (Auto) (0-2) % Neut # (Auto) (7268-1728) /uL D-Dimer 686 H (<230) ng/mL ABG pH (7.35-7.45) ABG pCO2 (35-45) mmHg ABG pO2 (80-105) mmHg ABG HCO3 (23-27) mmol/L ABG Total CO2 (23-27) mmol/L ABG O2 Saturation (95-100) % ABG Base Excess (-2-3) mmol/L FiO2 Sodium (137-145) mmol/L Potassium (3.4-5.1) mmol/L Chloride (98-107) mmol/L Carbon Dioxide (22-32) mmol/L BUN (7-17) mg/dL Creatinine (0.52-1.04) mg/dL Estimated GFR (>60) mL/min BUN/Creatinine Ratio (6-22) Glucose (70-100) mg/dL Lactate (0.7-2.1) mmol/L Calcium (8.4-10.2) mg/dL Total Bilirubin (0.2-1.3) mg/dL AST (14-36) IU/L ALT (9-52) IU/L Alkaline Phosphatase (38-126) U/L Total Protein (6.3-8.2) g/dL Albumin (3.5-5.0) g/dL Globulin (1.7-4.1) g/dL Albumin/Globulin Ratio (1.0-2.8) Lipase (23-300) U/L Procalcitonin 2.22 H (<0.5) ng/mL Urine Color Urine Appearance Urine pH (4.5-8.0) Ur Specific [place] (1.000-1.035) Urine Protein (Negative) Urine Glucose (UA) (Normal) g/dL Urine Ketones (NEGATIVE) Urine Occult Blood (Negative) Urine Nitrate (Negative) Urine Bilirubin (NEGATIVE) Urine Urobilinogen (0.2) E.U./dL Ur Leukocyte Esterase (NEGATIVE) Urine RBC (0-5/HPF) Urine WBC (0-5/HPF) Ur Squamous Epith Cells Urine Bacteria (None) Ur Culture Indicated? Micro UA Comment Urine Test Negative (Negative) Nasal Screen MRSA (PCR) (Negative) 02/21/18 02/21/18 02/21/18 Range/Units 16:15 16:30 20:40 WBC (4.5-11.0) X10^3/uL RBC (4.0-5.2) X10^6/uL Hgb (12.0-16.0) g/dL Hct (36-46) % MCV (80-100) fL MCH (26-34) PG MCHC (30-36) % RDW (11.6-14.8) % Plt Count (150-400) X10^3/uL Neut % (Auto) (50-75) % Lymph % (Auto) (25-40) % [place] % (Auto) (3-14) % Eos % (Auto) (2-4) % Baso % (Auto) (0-2) % Neut # (Auto) (2731-6147) /uL D-Dimer (<230) ng/mL ABG pH 7.42 (7.35-7.45) ABG pCO2 42.6 (35-45) mmHg ABG pO2 35 L* (80-105) mmHg ABG HCO3 28 H (23-27) mmol/L ABG Total CO2 29 H (23-27) mmol/L ABG O2 Saturation 69 L* (95-100) % ABG Base Excess 3.0 (-2-3) mmol/L FiO2 0.21 Sodium (137-145) mmol/L Potassium (3.4-5.1) mmol/L Chloride (98-107) mmol/L Carbon Dioxide (22-32) mmol/L BUN (7-17) mg/dL Creatinine (0.52-1.04) mg/dL Estimated GFR (>60) mL/min BUN/Creatinine Ratio (6-22) Glucose (70-100) mg/dL Lactate (0.7-2.1) mmol/L Calcium (8.4-10.2) mg/dL Total Bilirubin (0.2-1.3) mg/dL AST (14-36) IU/L ALT (9-52) IU/L Alkaline Phosphatase (38-126) U/L Total Protein (6.3-8.2) g/dL Albumin (3.5-5.0) g/dL Globulin (1.7-4.1) g/dL Albumin/Globulin Ratio (1.0-2.8) Lipase (23-300) U/L Procalcitonin (<0.5) ng/mL Urine Color Yellow Urine Appearance Clear Urine pH 5.5 (4.5-8.0) Ur Specific [place] 1.015 (1.000-1.035) Urine Protein Negative (Negative) Urine Glucose (UA) 3+ (Normal) g/dL Urine Ketones Negative (NEGATIVE) Urine Occult Blood Negative (Negative) Urine Nitrate Negative (Negative) Urine Bilirubin Negative (NEGATIVE) Urine Urobilinogen 0.2 (0.2) E.U./dL Ur Leukocyte Esterase Negative (NEGATIVE) Urine RBC None seen (0-5/HPF) Urine WBC None seen (0-5/HPF) Ur Squamous Epith Cells 1-5 /hpf Urine Bacteria None seen (None) Ur Culture Indicated? Not Reportable Micro UA Comment Not Reportable Urine Test (Negative) Nasal Screen MRSA (PCR) Positive for mrsa H (Negative) Imaging Data CT scan - chest: Radiologist's impression: [address] [address] [address] Scan Report Signed Patient: Mikki Luo [facility]#: [id number] : 1980Acct:[id number] Age/Sex: 37 / FDate of Service: 02/21/18 Loc: ED Accession Number: [id number] Procedure: CT angio chest PE protocol Ordering Provider: Christ Ngo PROCEDURE: CT ANGIO CHEST PE PROTOCOL INDICATIONS: Elevated heart rate and elevated D-dimer TECHNIQUE: After the administration of intravenous contrast, 2 mm thick sections acquired from the pulmonary apices to the posterior costophrenic angles. 3-dimensional maximum intensity projection (MIP) coronal and sagittal reformats were then acquired through the thorax. For radiation dose reduction, the following was used: automated exposure control, adjustment of mA and/or kV according to patient size. COMPARISON: [facility], CR, XR CHEST 1V, 02/21/2018, 17:16. [facility], CT, CT ANGIO CHEST PE, 07/30/2015, 20:31. FINDINGS: Image quality: Excellent. Pulmonary arteries: Pulmonary arteries demonstrate no intraluminal filling defects to suggest central pulmonary embolism. There is enlargement of the primary arteries suggestive of pulmonary arterial hypertension. The main pulmonary artery measures up to approximately 3.3 cm. Lungs and pleura: There is confluent consolidation within the right middle lobe with associated air bronchograms. Mild bilateral atelectasis also demonstrated. No pleural effusions or pneumothorax. Central and peripheral airways are patent. Mediastinum: Heart size is normal, without pericardial effusion. Thoracic aorta is normal in caliber and enhancement. There are enlarged mediastinal lymph nodes including confluent subcarinal and azygoesophageal lymph nodes. There are also prominent paratracheal lymph nodes in the superior mediastinum measuring up to 0.8 cm in short axis. No hilar lymphadenopathy. Esophagus is normal in caliber, without hiatal hernia. Bones and chest wall: No suspicious bony lesions. Ribs and thoracic spine appear intact throughout. No axillary or supraclavicular adenopathy. Abdomen: Visualized upper abdomen demonstrates multiple prominent confluent lymph nodes along the celiac axis which are incompletely evaluated. IMPRESSION: 1. No evidence of central pulmonary embolism. Enlargement of the pulmonary arteries demonstrated suggestive of pulmonary arterial hypertension. 2. Confluent consolidation within the right middle lobe with air bronchograms compatible with lobar pneumonia. Recommend radiographic followup to demonstrate resolution. 3. Enlarged mediastinal lymph nodes as well as partially visualized enlarged celiac axis lymph nodes in the abdomen. The findings are nonspecific and may be reactive secondary to an infectious process but neoplasm is not fully excluded. Recommend correlation clinically and consider short-term followup in 3-6 months to demonstrate resolution. Dictated by: Jhony Figueroa M.D. on 02/21/2018 at 18:30 Approved by: Jhony Figueroa M.D. on 02/21/2018 at 18:41 Chest x-ray: Radiologist's impression: [address] [address] XRay Report Signed Patient: Mikki Luo [facility]#: [id number] : 1980Acct:[id number] Age/Sex: 37 / FDate of Service: 02/21/18 Loc: ED Accession Number: [id number] Procedure: XR chest 1V Ordering Provider: Christ Ngo PROCEDURE: XR CHEST 1V INDICATIONS: Elevated white count recent pneumonia TECHNIQUE: One view of the chest was acquired. COMPARISON: [facility], CR, XR CHEST 1V, 08/09/2017, 19:26. [facility], CR, XR CHEST 1V, 01/22/2018, 3:02. [facility], CR, XR CHEST 1V, 01/31/2018, 1:16. FINDINGS: Surgical changes and devices: None. Lungs and pleura: There is infiltrate seen involving the right lower lung. Low lung volumes are noted. This causes a crowded appearance to the lung markings and limits evaluation. Mediastinum: Mediastinal contours appear normal. Heart size is normal. Bones and chest wall: No suspicious bony lesions. Overlying soft tissues appear unremarkable. IMPRESSION: Right lower lung infiltrate. Dictated by: Lakhwinder Faust M.D. on 02/21/2018 at 16:27 Approved by: Lakhwinder Faust M.D. on 02/21/2018 at 16:28 MDM Narrative Medical decision making narrative: Patient had elevated D-dimer of 682. CT of the chest was obtained was negative for any blood clots. CT of the chest and also chest x-ray shows right middle lobe pneumonia. WBCs was elevated at 17.7. Urinalysis was negative for urinary tract infection. Do not appreciate infection and her axillary areas and if there was an abscess to the right axillary area drained yesterday. Suspect that her white count is due to pneumonia. VBG shows pH at 7.42 and negative lactate. No DKA at this time. She was given insulin in the emergency room that lower her blood sugar down in the 200s of vice 320. Due to not improving under oral antibiotic she is admitted for inpatient antibiotics. Discussed case with hospitalist accepted patient. <Kunal Watsonjono DO - Last Filed: 02/21/18 23:58> Lab Data Lab Results 02/21/18 02/21/18 02/21/18 Range/Units 15:45 15:45 15:45 WBC 17.7 H (4.5-11.0) X10^3/uL RBC 3.35 L (4.0-5.2) X10^6/uL Hgb 7.7 L (12.0-16.0) g/dL Hct 25.0 L (36-46) % MCV 74.6 L (80-100) fL MCH 23.0 L (26-34) PG MCHC 30.8 (30-36) % RDW 18.8 H (11.6-14.8) % Plt Count 637 H (150-400) X10^3/uL Neut % (Auto) 90.6 H (50-75) % Lymph % (Auto) 5.9 L (25-40) % [place] % (Auto) 2.8 L (3-14) % Eos % (Auto) 0.1 L (2-4) % Baso % (Auto) 0.6 (0-2) % Neut # (Auto) 87203 H (1770-2276) /uL D-Dimer (<230) ng/mL ABG pH (7.35-7.45) ABG pCO2 (35-45) mmHg ABG pO2 (80-105) mmHg ABG HCO3 (23-27) mmol/L ABG Total CO2 (23-27) mmol/L ABG O2 Saturation (95-100) % ABG Base Excess (-2-3) mmol/L FiO2 Sodium 133 L (137-145) mmol/L Potassium 4.4 (3.4-5.1) mmol/L Chloride 93 L (98-107) mmol/L Carbon Dioxide 25 (22-32) mmol/L BUN 20 H (7-17) mg/dL Creatinine 0.50 L (0.52-1.04) mg/dL Estimated GFR > 60.0 (>60) mL/min BUN/Creatinine Ratio 40.0 H (6-22) Glucose 408 H (70-100) mg/dL Lactate 1.4 (0.7-2.1) mmol/L Calcium 9.1 (8.4-10.2) mg/dL Total Bilirubin 0.6 (0.2-1.3) mg/dL AST 34 (14-36) IU/L ALT 22 (9-52) IU/L Alkaline Phosphatase 152 H (38-126) U/L Total Protein 8.0 (6.3-8.2) g/dL Albumin 4.3 (3.5-5.0) g/dL Globulin 3.7 (1.7-4.1) g/dL Albumin/Globulin Ratio 1.2 (1.0-2.8) Lipase 60 (23-300) U/L Procalcitonin (<0.5) ng/mL Urine Color Urine Appearance Urine pH (4.5-8.0) Ur Specific [place] (1.000-1.035) Urine Protein (Negative) Urine Glucose (UA) (Normal) g/dL Urine Ketones (NEGATIVE) Urine Occult Blood (Negative) Urine Nitrate (Negative) Urine Bilirubin (NEGATIVE) Urine Urobilinogen (0.2) E.U./dL Ur Leukocyte Esterase (NEGATIVE) Urine RBC (0-5/HPF) Urine WBC (0-5/HPF) Ur Squamous Epith Cells Urine Bacteria (None) Ur Culture Indicated? Micro UA Comment Urine Test (Negative) Nasal Screen MRSA (PCR) (Negative) 02/21/18 02/21/18 02/21/18 Range/Units 15:45 15:45 16:15 WBC (4.5-11.0) X10^3/uL RBC (4.0-5.2) X10^6/uL Hgb (12.0-16.0) g/dL Hct (36-46) % MCV (80-100) fL MCH (26-34) PG MCHC (30-36) % RDW (11.6-14.8) % Plt Count (150-400) X10^3/uL Neut % (Auto) (50-75) % Lymph % (Auto) (25-40) % [place] % (Auto) (3-14) % Eos % (Auto) (2-4) % Baso % (Auto) (0-2) % Neut # (Auto) (7328-8942) /uL D-Dimer 686 H (<230) ng/mL ABG pH (7.35-7.45) ABG pCO2 (35-45) mmHg ABG pO2 (80-105) mmHg ABG HCO3 (23-27) mmol/L ABG Total CO2 (23-27) mmol/L ABG O2 Saturation (95-100) % ABG Base Excess (-2-3) mmol/L FiO2 Sodium (137-145) mmol/L Potassium (3.4-5.1) mmol/L Chloride (98-107) mmol/L Carbon Dioxide (22-32) mmol/L BUN (7-17) mg/dL Creatinine (0.52-1.04) mg/dL Estimated GFR (>60) mL/min BUN/Creatinine Ratio (6-22) Glucose (70-100) mg/dL Lactate (0.7-2.1) mmol/L Calcium (8.4-10.2) mg/dL Total Bilirubin (0.2-1.3) mg/dL AST (14-36) IU/L ALT (9-52) IU/L Alkaline Phosphatase (38-126) U/L Total Protein (6.3-8.2) g/dL Albumin (3.5-5.0) g/dL Globulin (1.7-4.1) g/dL Albumin/Globulin Ratio (1.0-2.8) Lipase (23-300) U/L Procalcitonin 2.22 H (<0.5) ng/mL Urine Color Urine Appearance Urine pH (4.5-8.0) Ur Specific [place] (1.000-1.035) Urine Protein (Negative) Urine Glucose (UA) (Normal) g/dL Urine Ketones (NEGATIVE) Urine Occult Blood (Negative) Urine Nitrate (Negative) Urine Bilirubin (NEGATIVE) Urine Urobilinogen (0.2) E.U./dL Ur Leukocyte Esterase (NEGATIVE) Urine RBC (0-5/HPF) Urine WBC (0-5/HPF) Ur Squamous Epith Cells Urine Bacteria (None) Ur Culture Indicated? Micro UA Comment Urine Test Negative (Negative) Nasal Screen MRSA (PCR) (Negative) 02/21/18 02/21/18 02/21/18 Range/Units 16:15 16:30 20:40 WBC (4.5-11.0) X10^3/uL RBC (4.0-5.2) X10^6/uL Hgb (12.0-16.0) g/dL Hct (36-46) % MCV (80-100) fL MCH (26-34) PG MCHC (30-36) % RDW (11.6-14.8) % Plt Count (150-400) X10^3/uL Neut % (Auto) (50-75) % Lymph % (Auto) (25-40) % [place] % (Auto) (3-14) % Eos % (Auto) (2-4) % Baso % (Auto) (0-2) % Neut # (Auto) (1533-0869) /uL D-Dimer (<230) ng/mL ABG pH 7.42 (7.35-7.45) ABG pCO2 42.6 (35-45) mmHg ABG pO2 35 L* (80-105) mmHg ABG HCO3 28 H (23-27) mmol/L ABG Total CO2 29 H (23-27) mmol/L ABG O2 Saturation 69 L* (95-100) % ABG Base Excess 3.0 (-2-3) mmol/L FiO2 0.21 Sodium (137-145) mmol/L Potassium (3.4-5.1) mmol/L Chloride (98-107) mmol/L Carbon Dioxide (22-32) mmol/L BUN (7-17) mg/dL Creatinine (0.52-1.04) mg/dL Estimated GFR (>60) mL/min BUN/Creatinine Ratio (6-22) Glucose (70-100) mg/dL Lactate (0.7-2.1) mmol/L Calcium (8.4-10.2) mg/dL Total Bilirubin (0.2-1.3) mg/dL AST (14-36) IU/L ALT (9-52) IU/L Alkaline Phosphatase (38-126) U/L Total Protein (6.3-8.2) g/dL Albumin (3.5-5.0) g/dL Globulin (1.7-4.1) g/dL Albumin/Globulin Ratio (1.0-2.8) Lipase (23-300) U/L Procalcitonin (<0.5) ng/mL Urine Color Yellow Urine Appearance Clear Urine pH 5.5 (4.5-8.0) Ur Specific [place] 1.015 (1.000-1.035) Urine Protein Negative (Negative) Urine Glucose (UA) 3+ (Normal) g/dL Urine Ketones Negative (NEGATIVE) Urine Occult Blood Negative (Negative) Urine Nitrate Negative (Negative) Urine Bilirubin Negative (NEGATIVE) Urine Urobilinogen 0.2 (0.2) E.U./dL Ur Leukocyte Esterase Negative (NEGATIVE) Urine RBC None seen (0-5/HPF) Urine WBC None seen (0-5/HPF) Ur Squamous Epith Cells 1-5 /hpf Urine Bacteria None seen (None) Ur Culture Indicated? Not Reportable Micro UA Comment Not Reportable Urine Test (Negative) Nasal Screen MRSA (PCR) Positive for mrsa H (Negative) Discharge Plan Departure Patient Disposition: Admitted As Inpatient Clinical Impression: Pneumonia Discharge Date/Time: 02/21/18 20:40 Interventions: ED Discharge Assessment Last Done: 02/21/18 20:38 Admit Date/Time: 02/21/18 20:04 Admit Provider: Dante Garcia <Kunal Roe DO - Last Filed: 02/21/18 23:58> Cosign ED Attending Amandaature Attestation: I was immediately available in the department for consultation. Documentation has been reviewed. I agree with assessment and plan.
--- NOTE | 2018-02-21 16:22 | PC.NURSE ---
Patient called after attempting to get up to use the bathroom. Patient peed all over the floor and in the laundry hamper in the room. Housekeeping helped clean it up.
[2018-02-21 16:30] LABS: Alanine Aminotransferase 22 IU/L (9-52); Albumin 4.3 g/dL (3.5-5.0); Albumin Globulin Ratio 1.2 (1.0-2.8); Alkaline Phosphatase 152 U/L (38-126); Aspartate Aminotransferase 34 IU/L (14-36); Bilirubin Total 0.6 mg/dL (0.2-1.3); Blood Urea Nitrogen 20 mg/dL (7-17); Calcium 9.1 mg/dL (8.4-10.2); Carbon Dioxide 25 mmol/L (22-32); Chloride 93 mmol/L (98-107); Estimated Glomerular Filt Rate > 60.0 mL/min (>60); Globulin 3.7 g/dL (1.7-4.1); Glucose 408 mg/dL (70-100); HEMOLYSIS < 15 (0-50); Lipase 60 U/L (23-300); Potassium 4.4 mmol/L (3.4-5.1); Sodium 133 mmol/L (137-145)
[2018-02-21 16:31] LABS: Add Manual Diff / Slide Review NO; Basophils Percent Auto 0.6 % (0-2); Eosinophils Percent Auto 0.1 % (2-4); Hemoglobin 7.7 g/dL (12.0-16.0); Lymphocytes Percent Auto 5.9 % (25-40); Mean Corpuscular HGB Conc 30.8 % (30-36); Mean Corpuscular Volume 74.6 fL (80-100); Monocytes Percent Auto 2.8 % (3-14); Neutrophils Absolute Auto 16000 /uL (3000-5900); Neutrophils Percent Auto 90.6 % (50-75); Platelet Count 637 X10^3/uL (150-400); Red Blood Cell Count 3.35 X10^6/uL (4.0-5.2); Red Cell Distribution Width 18.8 % (11.6-14.8); White Blood Cell Count 17.7 X10^3/uL (4.5-11.0)
[2018-02-21 16:35] LABS: Lactate (Lactic Acid) 1.4 mmol/L (0.7-2.1)
[2018-02-21] MEDS: HYDROMORPHONE 1 MG INJ 0.5 MG IV ×2 (16:37→20:08)
[2018-02-21] MEDS: INSULIN REGULAR 100 UNIT/ML 3 ML VIAL IV (16:39)
[2018-02-21] MEDS: SODIUM CHLORIDE 0.9% 1,000 ML 1000 ML IV (16:39)
[2018-02-21 16:40] VITALS: BP 130/80; PULSE 119; RESP 20; TEMP 36.7; O2SAT 95
--- NOTE | 2018-02-21 17:10 | DI.RAD.S_ITS ---
PROCEDURE: XR CHEST 1V INDICATIONS: Elevated white count recent pneumonia TECHNIQUE: One view of the chest was acquired. COMPARISON: [facility], CR, XR CHEST 1V, 08/09/2017, 19:26. [facility], CR, XR CHEST 1V, 01/22/2018, 3:02. [facility], CR, XR CHEST 1V, 01/31/2018, 1:16. FINDINGS: Surgical changes and devices: None. Lungs and pleura: There is infiltrate seen involving the right lower lung. Low lung volumes are noted. This causes a crowded appearance to the lung markings and limits evaluation. Mediastinum: Mediastinal contours appear normal. Heart size is normal. Bones and chest wall: No suspicious bony lesions. Overlying soft tissues appear unremarkable. IMPRESSION: Right lower lung infiltrate. Dictated by: Lakhwinder Faust M.D. on 02/21/2018 at 16:27 Approved by: Lakhwinder Faust M.D. on 02/21/2018 at 16:28
[2018-02-21] MEDS: ACETAMINOPHEN 325 MG TABLET 975 MG PO (17:17)
[2018-02-21 17:23] LABS: D Dimer 686 ng/mL (<230)
--- NOTE | 2018-02-21 17:36 | DI.CT.S_ITS ---
PROCEDURE: CT ANGIO CHEST PE PROTOCOL INDICATIONS: Elevated heart rate and elevated D-dimer TECHNIQUE: After the administration of intravenous contrast, 2 mm thick sections acquired from the pulmonary apices to the posterior costophrenic angles. 3-dimensional maximum intensity projection (MIP) coronal and sagittal reformats were then acquired through the thorax. For radiation dose reduction, the following was used: automated exposure control, adjustment of mA and/or kV according to patient size. COMPARISON: [facility], CR, XR CHEST 1V, 02/21/2018, 17:16. , CT, CT ANGIO CHEST PE, 07/30/2015, 20:31. FINDINGS: Image quality: Excellent. Pulmonary arteries: Pulmonary arteries demonstrate no intraluminal filling defects to suggest central pulmonary embolism. There is enlargement of the primary arteries suggestive of pulmonary arterial hypertension. The main pulmonary artery measures up to approximately 3.3 cm. Lungs and pleura: There is confluent consolidation within the right middle lobe with associated air bronchograms. Mild bilateral atelectasis also demonstrated. No pleural effusions or pneumothorax. Central and peripheral airways are patent. Mediastinum: Heart size is normal, without pericardial effusion. Thoracic aorta is normal in caliber and enhancement. There are enlarged mediastinal lymph nodes including confluent subcarinal and azygoesophageal lymph nodes. There are also prominent paratracheal lymph nodes in the superior mediastinum measuring up to 0.8 cm in short axis. No hilar lymphadenopathy. Esophagus is normal in caliber, without hiatal hernia. Bones and chest wall: No suspicious bony lesions. Ribs and thoracic spine appear intact throughout. No axillary or supraclavicular adenopathy. Abdomen: Visualized upper abdomen demonstrates multiple prominent confluent lymph nodes along the celiac axis which are incompletely evaluated. IMPRESSION: 1. No evidence of central pulmonary embolism. Enlargement of the pulmonary arteries demonstrated suggestive of pulmonary arterial hypertension. 2. Confluent consolidation within the right middle lobe with air bronchograms compatible with lobar pneumonia. Recommend radiographic followup to demonstrate resolution. 3. Enlarged mediastinal lymph nodes as well as partially visualized enlarged celiac axis lymph nodes in the abdomen. The findings are nonspecific and may be reactive secondary to an infectious process but neoplasm is not fully excluded. Recommend correlation clinically and consider short-term followup in 3-6 months to demonstrate resolution. Dictated by: Jhony Figueroa M.D. on 02/21/2018 at 18:30 Approved by: Jhony Figueroa M.D. on 02/21/2018 at 18:41
--- NOTE | 2018-02-21 17:44 | PC.NURSE ---
blood glucose at 1725 bg 238
[2018-02-21 17:49] LABS: Bacteria Urine None Seen; RBC Urine None Seen (0-5/HPF); WBC Urine None Seen (0-5/HPF)
[2018-02-21 17:51] LABS: Appearance Urine UA CLEAR; Bilirubin Urine UA NEGATIVE (NEGATIVE); Color Urine UA YELLOW; Glucose Urine UA 3+ g/dL (Normal); Ketones Urine UA NEGATIVE (NEGATIVE); Leukocyte Esterase Urine UA NEGATIVE (NEGATIVE); Nitrite Urine UA NEGATIVE (Negative); Occult Blood Urine UA NEGATIVE (Negative); Protein Urine UA NEGATIVE (Negative); Specific Gravity Urine UA 1.015 (1.000-1.035); Urobilinogen Urine UA 0.2 E.U./dL (0.2); pH Urine UA 5.5 (4.5-8.0)
[2018-02-21 17:53] LABS: Pregnancy Test Urine Negative (Negative)
[2018-02-21 18:21] LABS: Squamous Epithelial Cell Urine 1-5 /HPF
[2018-02-21] MEDS: levoFLOXacin 750 MG/150 ML PIGGYBACK 100 MG IV (19:31)
[2018-02-21 19:35] VITALS: BP 117/56; PULSE 113; RESP 17; O2SAT 96
--- NOTE | 2018-02-21 20:40 | P.HP_ITS ---
History of Present Illness Date Patient Seen: 02/21/18 Chief complaint: Abcess Narrative: The patient is a 37-year-old female w/ PMH significant for HTN, DM 1T (uncontrolled / frequent hospitalizations for DKA), PVD, h/o cali bite, fibromyalgia, psychiatric illness (bipolar disorder, PTSD, ADHD, depression), methamphetamine abuse, and tobacco dependence. Pneumonia Patient is being admitted for RML pneumonia. Denies fever/chills. Reports sporadic cough. No reported purulence. Reports dyspnea, which is worsened w/ exertion. ABG revealed O2 sat of 69%. States she has not had an inhaler to use. Denies chest pain, palpitations, dizziness, lightheaded, syncope, abdominal pain, vomiting, dysuria, or blood in urine/stool. Reports chronic nausea and loose stools. Denies watery diarrhea, melena or hematochezia. Patient was hospitalized at [facility] for 13 days, by report, for DKA, pneumonia, and foot pain. Patient was discharged 4 days ago. B/L axillary abscess Patient has a history of bilateral axillary abscesses requiring I&D. Patient was hospitalized at the end of January and is known to have I&D on 01/25 at the [facility]. Patient notes that she had bilateral I&D once again at [facility] during her most recent hospitalization. Patient notes that she was discharged with staff adequate supplies to care for her wounds; however, notes that she is unable to do so on her own. She reports a recurrent abscess in the right axilla, 2 days ago, which burst on its own. Reports presence of bilateral pain at the axilla sites. Bilateral foot and toe pain Reports burning pain b/t foot and toes. Has been using an umbrella as a cane. Denies lower extremity weakness. Incontient (baseline). No loss of bowel and bladder control. H/o chronic ulcer on right foot and recurrent cellulitis, distal phalanx (3rd toe), reports pain has been worse for the past two days. No drainage. Methamphetamine use Patient is known to have a history of methamphetamine use. Admits to using 1 time, 3 days ago. Also, a tobacco user, reports smoking 5 cigarettes daily. ED presentation / work-up WBC 17.7 RBC 3.35 Hgb 7.7 Hct 25.0 MCV 74.6 MCH 23.0 RDW 18.8 Plt 637 CTA Chest, 02/21/18 No central PE. Suggestive PAH. RML confluent consolidation w/ air bronchograms (lobar pneumonia). No pleural effusion or pneumothorax. Enlarged mediastinal lymph nodes as well as partially visualized enlarged celiac axis lymph nodes in the abdomen. Findings are nonspecific, may be secondary to an infectious process, but neoplasm is not fully excluded. Patient History Medical History Chronic ulcer of toe (Acute) Hypertension (Acute) Insulin dependent diabetes mellitus (Acute) Methamphetamine abuse (Acute) Peripheral vascular disease (Acute) Family & Social History Family History: Reviewed 02/21/18 by TREVOR Hernandez Social History: household members None. Homeless. No family - father dies (2015) ; no contact w/ mother Tobacco & Substance use: Tobacco type cigarettes, 1/5 pack or less daily Smoking Status Current every day smoker alcohol intake current alcohol intake frequency 0-2 drinks per day Substance Use Type methamphetamine Meds Home Medications Medication Instructions Recorded Confirmed Type duloxetine 60 mg PO DAILY #0 04/16/17 02/21/18 History Syringes: 1cc Insulin Syringes 1 syr SQ 5XD #100 unit 02/01/18 02/21/18 Rx with [place] gabapentin [Neurontin] 600 mg PO TID #90 tab 02/01/18 02/21/18 Rx amitriptyline 25 mg PO BEDTIME 02/21/18 02/21/18 History aspirin 81 mg PO DAILY 02/21/18 02/21/18 History cilostazol 100 mg PO BID 02/21/18 02/21/18 History clonidine HCl 0.1 mg PO BID 02/21/18 02/21/18 History hydromorphone 2 mg PO DAILY PRN 02/21/18 02/21/18 History ibuprofen 600 mg PO Q6H PRN 02/21/18 02/21/18 History insulin aspart U-100 [Novolog 15 unit SUBCUT TID 02/21/18 02/21/18 History Flexpen U-] insulin glargine [Lantus U-] 40 unit SUBCUT QPM 02/21/18 02/21/18 History levofloxacin 500 mg PO DAILY 02/21/18 02/21/18 History metoclopramide HCl 10 mg PO ACHS 02/21/18 02/21/18 History metoprolol succinate 25 mg PO BID 02/21/18 02/21/18 History sulfamethoxazole-trimethoprim 2 tab PO BID 02/21/18 02/21/18 History Allergies Allergy/AdvReac Type Severity Reaction Status Date / Time codeine [CODEINE] Allergy Severe Hives Verified 02/21/18 22:40 hydrocodone [HYDROCODONE] Allergy Severe Hives Verified 02/21/18 22:40 nitrofurantoin Allergy Severe Hives Verified 02/21/18 22:40 [From MACROBID] adhesive tape Allergy Intermediate Hives Verified 02/21/18 22:40 morphine [MORPHINE] AdvReac Intermediate itching Verified 02/21/18 22:40 fentanyl AdvReac Mild itching Verified 02/21/18 22:40 Review of Systems Review of Systems All systems reviewed & are unremarkable except as noted in HPI and below Exam Vital Signs (past 8 hours): - 02/21/18 14:55 02/21/18 15:18 02/21/18 16:40 Temperature 98.4 F 98.0 F Pulse Rate 120 H 115 H 119 H Respiratory Rate 18 16 20 Blood Pressure 125/81 Blood Pressure [Left Arm] 134/82 130/80 Pulse Oximetry 96 95 95 02/21/18 19:35 Temperature Pulse Rate 113 H Respiratory Rate 17 Blood Pressure Blood Pressure [Left Arm] 117/56 L Pulse Oximetry 96 Oxygen Delivery Method Room Air Narrative Exam Narrative: Constitutional: reports pain out of proportion to behavior Neurologic: AOx3, no focal neurological deficits Psychiatric: labile, hysteria Head: NC, AT Eyes: pupils equal round and reactive, EOMI, gaze conjugate, no drainage Ears: external ears normal, no otorrhea Nose: external nose normal, no rhinorrhea or epistaxis Throat: MMM, oropharynx w/o exudate Neck: no masses, lymphadenopathy, or JVD Chest / Respiratory: equal chest rise, unlabored respiratory effort, no tachypnea diminished Axilla: patient would not allow palpation. right axilla incision is greater than that of the left. no packing present potential edema vs induration (difficult to note, patient refuses palpation) ; reports tenderness at site, which is not consistent w/ appearance of the incisions no erythema, drainage, or foul odor Heart / CV: S1S2, no murmur Abdomen / GI: round, NT, ND, + BS, no organomegaly : no suprapubic tenderness Peripheral / Vascular: warm to touch, DP 1+ left and 2+ right; both extremities warm to touch, no edema or erythema of foot, no evident demarcation noted right foot, distal phalanx (3rd) - edema, erythema, no drainage (chronic for patient), ulcer w/ scab present, tenderness to palpation of phalanx Musc: full ROM of upper and lower extremities, adequate muscle tone and bulk Skin: no ecchymosis or suspicious lesions / ulcers Objective Labs Result Diagrams: 02/21/18 15:45 02/22/18 05:11 Labs: Laboratory Results - last 24 hr 02/21/18 02/21/18 02/21/18 15:45 15:45 15:45 WBC 17.7 H RBC 3.35 L Hgb 7.7 L Hct 25.0 L MCV 74.6 L MCH 23.0 L MCHC 30.8 RDW 18.8 H Plt Count 637 H Neut % (Auto) 90.6 H Lymph % (Auto) 5.9 L [place] % (Auto) 2.8 L Eos % (Auto) 0.1 L Baso % (Auto) 0.6 Neut # (Auto) 68797 H D-Dimer ABG pH ABG pCO2 ABG pO2 ABG HCO3 ABG Total CO2 ABG O2 Saturation ABG Base Excess FiO2 Sodium 133 L Potassium 4.4 Chloride 93 L Carbon Dioxide 25 BUN 20 H Creatinine 0.50 L Estimated GFR > 60.0 BUN/Creatinine Ratio 40.0 H Glucose 408 H Lactate 1.4 Calcium 9.1 Total Bilirubin 0.6 AST 34 ALT 22 Alkaline Phosphatase 152 H Total Protein 8.0 Albumin 4.3 Globulin 3.7 Albumin/Globulin Ratio 1.2 Lipase 60 Urine Color Urine Appearance Urine pH Ur Specific [place] Urine Protein Urine Glucose (UA) Urine Ketones Urine Occult Blood Urine Nitrate Urine Bilirubin Urine Urobilinogen Ur Leukocyte Esterase Urine RBC Urine WBC Ur Squamous Epith Cells Urine Bacteria Ur Culture Indicated? Micro UA Comment Urine Test 02/21/18 02/21/18 02/21/18 15:45 16:15 16:15 WBC RBC Hgb Hct MCV MCH MCHC RDW Plt Count Neut % (Auto) Lymph % (Auto) [place] % (Auto) Eos % (Auto) Baso % (Auto) Neut # (Auto) D-Dimer 686 H ABG pH ABG pCO2 ABG pO2 ABG HCO3 ABG Total CO2 ABG O2 Saturation ABG Base Excess FiO2 Sodium Potassium Chloride Carbon Dioxide BUN Creatinine Estimated GFR BUN/Creatinine Ratio Glucose Lactate Calcium Total Bilirubin AST ALT Alkaline Phosphatase Total Protein Albumin Globulin Albumin/Globulin Ratio Lipase Urine Color Yellow Urine Appearance Clear Urine pH 5.5 Ur Specific [place] 1.015 Urine Protein Negative Urine Glucose (UA) 3+ Urine Ketones Negative Urine Occult Blood Negative Urine Nitrate Negative Urine Bilirubin Negative Urine Urobilinogen 0.2 Ur Leukocyte Esterase Negative Urine RBC None seen Urine WBC None seen Ur Squamous Epith Cells 1-5 /hpf Urine Bacteria None seen Ur Culture Indicated? Not Reportable Micro UA Comment Not Reportable Urine Test Negative 02/21/18 16:30 WBC RBC Hgb Hct MCV MCH MCHC RDW Plt Count Neut % (Auto) Lymph % (Auto) [place] % (Auto) Eos % (Auto) Baso % (Auto) Neut # (Auto) D-Dimer ABG pH 7.42 ABG pCO2 42.6 ABG pO2 35 L* ABG HCO3 28 H ABG Total CO2 29 H ABG O2 Saturation 69 L* ABG Base Excess 3.0 FiO2 0.21 Sodium Potassium Chloride Carbon Dioxide BUN Creatinine Estimated GFR BUN/Creatinine Ratio Glucose Lactate Calcium Total Bilirubin AST ALT Alkaline Phosphatase Total Protein Albumin Globulin Albumin/Globulin Ratio Lipase Urine Color Urine Appearance Urine pH Ur Specific [place] Urine Protein Urine Glucose (UA) Urine Ketones Urine Occult Blood Urine Nitrate Urine Bilirubin Urine Urobilinogen Ur Leukocyte Esterase Urine RBC Urine WBC Ur Squamous Epith Cells Urine Bacteria Ur Culture Indicated? Micro UA Comment Urine Test Assessment & Plan Plan: Assessment/Plan Narrative: RML CAP Presented hypoxic, SpO2 69% on RA and tachycardic. Leukocytosis (WBC 17.7). CXR revealed RML confluent consolidation w/ air bronchograms. Hospitalized at [facility] in the past 1 week, d/c on Levaquin. Concern for medication adherence vs. failed treatment course. ABG: pH 7.43 pCO2 42.6 pO2 35. No overt s /s of sepsis. - Labs: blood cx x2, PCT; CBC, BMP, Mg (am) - Levaquin - IVF - Supportive care Acute Hypoxia ABG: pH 7.43 pCO2 42.6 pO2 35. Not clear if this was a venous sample. Patient on RA w/ SpO2 95% while awake and 90-92% while sleeping. Hgb 7.7. Lactate WNL. - Continuous pulse ox - Supplemental O2 prn, keep SpO2 > 95% B/L Axillary Abscesses Recurring b/l axillary abscesses. S/P I&D on 01/25. Wound Cx + MRSA (sensitive to bactrim, resistant to clindamycin). 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 Hgb 10 g/dL range. No active s/s of bleeding. - Trend Hgb level w/ am lab - Check iron profile w/ % saturation - Consider blood transfusion for Hgb < 7 or if symptomatic. Discussed w/ patient, in agreement. Blood consent signed. No need to transfuse at this time. Acute pain - Tylenol, Ibuprofen prn - Dilaudid PO 2 mg Q6H, for breakthrough / severe pain only Volume Depletion - IVF DM 1T, uncontrolled, w/ complications of neuropathy and diabetic gastroparesis Not in DKA. BG on presentation 408 mg/dL. UA + glycosuria. - BG checks Q6H. SSI - Medium scale. May bump to high if BG is > 250 x 3 consecutively - Carb consistent diet Peripheral neuropathy Multifactorial... a complication of DM vs. peripheral vascular disease TELEPHONE INSTRUMENT SUPERVISOR meds include gabapentin and cilostazol - Resume gabapentin - Hold cilostazol for now d/t high risk for QT prolongation w/ concurrent levaquin use Tachycardia - hydrate, monitor response; monitor for s/s of methamphetamine withdrawal - consider starting propranolol Methamphetamine Dependence - monitor for s/s of withdrawal - clonidine 0.[address] Findings No abdominal pain. Enlarged mediastinal lymph nodes as well as partially visualized enlarged celiac axis lymph nodes in the abdomen. The findings are nonspecific and may be reactive secondary to an infectious process but neoplasm is not fully excluded. Recommend correlation clinically and consider short-term followup in 3-6 months to demonstrate resolution. Elevated D-Dimer (686 ng/mL), CTA chest negative for central PE Pseudohyponatremia (Na 133) In the setting of hyperglycemia. Corrected Na level is 138 mg/dL Fibromyalgia - TELEPHONE INSTRUMENT SUPERVISOR duloxetine resumed. It is not clear if she is taking these medications consistently. Tobacco dependence - Smoking cessation highly encouraged - Nicotine patch
[2018-02-21 20:43] VITALS: BMI 22.6
[2018-02-21 20:49] VITALS: BP 129/75; PULSE 111; RESP 20; TEMP 36.8; O2SAT 95
[2018-02-21] MEDS: ACETAMINOPHEN 325 MG TABLET 650 MG PO (21:50)
--- NOTE | 2018-02-21 22:10 | PC.NURSE ---
Addendum entered by Ruth Sommers R.N. 02/21/18 23:25: BG at HS 391. Notified NOC hospitalist. Sliding scale ordered. 7 units novolog given. Pt requesting frequent snacks. Original Note: Wendy shift: 2029- pt arrived to floor, pleasant and answering all questions appropriately. Describes pain in R 3rd toe as 8/10. difficulty with ambulation because of this. tachy 115 at rest, otherwise VSS. requesting food and pain medication. States she is currently homeless but is sleeping [place] in [place] when it gets too cold and last used methamphetamine 4 days ago. 2100: Wendy shift hospitalist here to see pt. Pt became angry that concerns weren't being heard by hospital staff. Calling names and throwing personal belongings. purposefully threw self out of bed and onto floor to prove that she can not stand. Security present. threatening to leave AMA. Able to calm pt with reassurance that staff is taking all concerns seriously and that she is getting the care she needs. Medication bin and sharps container removed from room d/t history of digging through sharps in room on previous admissions. Provided food and tylenol PRN for pain. Limit setting on appropriate behavior.
[2018-02-21] MEDS: SODIUM CHLORIDE 0.9% 1,000 ML 75 ML IV (22:27)
[2018-02-21] MEDS: INSULIN ASPART 100 UNIT/ML INSULN PEN SUBCUT (23:07)
[2018-02-21 23:56] LABS: Procalcitonin 2.22 ng/mL (<0.5)
[2018-02-22] VITALS (8 sets, daily range): BP systolic 97–156; BP diastolic 57–108; PULSE 85–111; RESP 18–21; TEMP 36.1–36.9; O2SAT 93–96
[2018-02-22] MEDS: cloNIDine 0.1 MG TABLET PO ×4 (00:47→17:02)
[2018-02-22] MEDS: IBUPROFEN 600 MG TABLET PO ×4 (00:48→21:50)
[2018-02-22 05:42] LABS: Blood Urea Nitrogen 14 mg/dL (7-17); Calcium 8.5 mg/dL (8.4-10.2); Carbon Dioxide 25 mmol/L (22-32); Chloride 99 mmol/L (98-107); Estimated Glomerular Filt Rate > 60.0 mL/min (>60); Glucose 377 mg/dL (70-100); HEMOLYSIS < 15 (0-50); Magnesium 2.2 mg/dL (1.6-2.3); Potassium 4.1 mmol/L (3.4-5.1); Sodium 134 mmol/L (137-145)
[2018-02-22 05:59] LABS: HEMOLYSIS < 15 (0-50); Iron 18 ug/dL (37-170)
[2018-02-22 06:10] LABS: Percent Iron Saturation 6 % (15-50); Total Iron Binding Capacity 323 ug/dL (265-497); Transferrin 245 mg/dL (206-381)
--- NOTE | 2018-02-22 06:36 | PC.NURSE ---
shift leader overview: 0630 Pt has been mostly calm and cooperative overnight. Medicated 1 time with Ibuprofen for 8/10 pain to BL axillary abscesses. Per pt, bilateral I&D has been performed at least two times in the last month or so. 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 Sites photographed for chart. Pt has been incontinent of urine x2 overnight and up to BSC one time. Pt has been wanting snacks several times overnight, pt did eat some sugar free pudding, a couple of crackers and piece of turkey. Pt is diaphoretic at times, afebrile. Frequent reorienting to call light. Bed alarm on for safety.
[2018-02-22 07:21] LABS: PCO2 VBG 42.6 mmHg (45-50); PO2 VBG 35 mmHg (35-45); pH VBG 7.42 (7.31-7.41)
[2018-02-22 07:22] LABS: HCO3 VBG 28 mmol/L (24-28); Oxygen Saturation VBG 69 % (70-75); Total CO2 VBG 29 mmol/L (24-29)
[2018-02-22] MEDS: INSULIN ASPART 100 UNIT/ML INSULN PEN SUBCUT ×4 (08:26→21:45)
[2018-02-22] MEDS: ASPIRIN EC 81 MG TABLET PO (08:55)
[2018-02-22] MEDS: DULOXETINE 30 MG CAPSULE 60 MG PO (08:56)
[2018-02-22] MEDS: TRIMETH/SULFA 160/800 (DS) TABLET 2 TAB PO ×2 (08:56→21:47)
[2018-02-22] MEDS: GABAPENTIN 600 MG TABLET PO ×3 (08:56→21:44)
[2018-02-22] MEDS: NICOTINE 14 PATCH 14 MG TOP (08:58)
[2018-02-22] MEDS: levoFLOXacin 750 MG/150 ML PIGGYBACK 100 MG IV (09:07)
[2018-02-22 10:19] LABS: Add Manual Diff / Slide Review NO; Basophils Percent Auto 0.8 % (0-2); Eosinophils Percent Auto 0.7 % (2-4); Hemoglobin 8.6 g/dL (12.0-16.0); Lymphocytes Percent Auto 16.1 % (25-40); Mean Corpuscular HGB Conc 30.6 % (30-36); Mean Corpuscular Hemoglobin 23.3 PG (26-34); Mean Corpuscular Volume 76.2 fL (80-100); Monocytes Percent Auto 6.5 % (3-14); Neutrophils Absolute Auto 6900 /uL (3000-5900); Neutrophils Percent Auto 75.9 % (50-75); Platelet Count 516 X10^3/uL (150-400); Red Blood Cell Count 3.67 X10^6/uL (4.0-5.2); White Blood Cell Count 9.1 X10^3/uL (4.5-11.0)
[2018-02-22] MEDS: ACETAMINOPHEN 325 MG TABLET 650 MG PO ×3 (10:21→23:03)
[2018-02-22] MEDS: HYDROMORPHONE 2 MG TABLET PO ×3 (10:21→23:03)
--- NOTE | 2018-02-22 11:19 | PM.PN.1 ---
Subjective Date Patient Seen: 02/22/18 Interval history: Patient seen and examined. She is well known from her prior admission. Patient reports she came to the ED because the people at [facility] would not help her. She was recently hospitalized for 13 days for pneumonia and treatment of her axillary abscesses. She reports significant pain in the right 3rd digit, axilla, and chest wall. She is aware that she has pneumonia and was recently treated at [facility] for this. We discussed referring her to a wound clinic and pain clinic as we would not have a definitive treatment for her pain at this time. She is agreeable and would like to go to a respite long term anywhere they are available. She refused the referral the [facility] during her last admission. She is tearful but quickly calms down. Her major issue is pain. She is not hypoxic and is resting comfortably on room air. Exam Vital Signs (past 8 hours): - 02/22/18 03:45 02/22/18 06:25 02/22/18 07:00 Temperature 98.5 F 97.4 F L Pulse Rate 92 H 102 H 96 H Respiratory Rate 19 18 Blood Pressure 133/82 138/93 H 130/72 Pulse Oximetry 96 93 Oxygen Delivery Method Room Air Narrative Exam Narrative: Lungs: Clear To auscultation CV: RRR nl Sl S2 Bilateral Axillary: no erythema, enduration, or redness, patient is tearful with palpation ABD: soft/ non tender non distended Ext: no edema right 3 rd digit is longer than the rest, there is a dry ulcer at the tip, slightly larger but no erythema, warmth or enduration Objective Labs Result Diagrams: 02/22/18 05:11 02/22/18 05:11 Labs: Laboratory Results - last 24 hr 02/21/18 02/21/18 02/21/18 15:45 15:45 15:45 WBC 17.7 H RBC 3.35 L Hgb 7.7 L Hct 25.0 L MCV 74.6 L MCH 23.0 L MCHC 30.8 RDW 18.8 H Plt Count 637 H Neut % (Auto) 90.6 H Lymph % (Auto) 5.9 L [place] % (Auto) 2.8 L Eos % (Auto) 0.1 L Baso % (Auto) 0.6 Neut # (Auto) 25290 H D-Dimer ABG pH ABG pCO2 ABG pO2 ABG HCO3 ABG Total CO2 ABG O2 Saturation ABG Base Excess VBG pH 7.42 H VBG pCO2 42.6 L VBG pO2 35 VBG HCO3 28 VBG Total CO2 29 VBG O2 Saturation 69 L VBG Base Excess 3.0 FiO2 Sodium 133 L Potassium 4.4 Chloride 93 L Carbon Dioxide 25 BUN 20 H Creatinine 0.50 L Estimated GFR > 60.0 BUN/Creatinine Ratio 40.0 H Glucose 408 H Lactate Calcium 9.1 Magnesium Iron TIBC % Saturation Transferrin Total Bilirubin 0.6 AST 34 ALT 22 Alkaline Phosphatase 152 H Total Protein 8.0 Albumin 4.3 Globulin 3.7 Albumin/Globulin Ratio 1.2 Lipase 60 Procalcitonin Urine Color Urine Appearance Urine pH Ur Specific [place] Urine Protein Urine Glucose (UA) Urine Ketones Urine Occult Blood Urine Nitrate Urine Bilirubin Urine Urobilinogen Ur Leukocyte Esterase Urine RBC Urine WBC Ur Squamous Epith Cells Urine Bacteria Ur Culture Indicated? Micro UA Comment Urine Test Nasal Screen MRSA (PCR) 02/21/18 02/21/18 02/21/18 15:45 15:45 15:45 WBC RBC Hgb Hct MCV MCH MCHC RDW Plt Count Neut % (Auto) Lymph % (Auto) [place] % (Auto) Eos % (Auto) Baso % (Auto) Neut # (Auto) D-Dimer 686 H ABG pH ABG pCO2 ABG pO2 ABG HCO3 ABG Total CO2 ABG O2 Saturation ABG Base Excess VBG pH VBG pCO2 VBG pO2 VBG HCO3 VBG Total CO2 VBG O2 Saturation VBG Base Excess FiO2 Sodium Potassium Chloride Carbon Dioxide BUN Creatinine Estimated GFR BUN/Creatinine Ratio Glucose Lactate 1.4 Calcium Magnesium Iron TIBC % Saturation Transferrin Total Bilirubin AST ALT Alkaline Phosphatase Total Protein Albumin Globulin Albumin/Globulin Ratio Lipase Procalcitonin 2.22 H Urine Color Urine Appearance Urine pH Ur Specific [place] Urine Protein Urine Glucose (UA) Urine Ketones Urine Occult Blood Urine Nitrate Urine Bilirubin Urine Urobilinogen Ur Leukocyte Esterase Urine RBC Urine WBC Ur Squamous Epith Cells Urine Bacteria Ur Culture Indicated? Micro UA Comment Urine Test Nasal Screen MRSA (PCR) 02/21/18 02/21/18 02/21/18 16:15 16:15 16:30 WBC RBC Hgb Hct MCV MCH MCHC RDW Plt Count Neut % (Auto) Lymph % (Auto) [place] % (Auto) Eos % (Auto) Baso % (Auto) Neut # (Auto) D-Dimer ABG pH Cancelled ABG pCO2 Cancelled ABG pO2 Cancelled ABG HCO3 Cancelled ABG Total CO2 Cancelled ABG O2 Saturation Cancelled ABG Base Excess Cancelled VBG pH VBG pCO2 VBG pO2 VBG HCO3 VBG Total CO2 VBG O2 Saturation VBG Base Excess FiO2 Cancelled Sodium Potassium Chloride Carbon Dioxide BUN Creatinine Estimated GFR BUN/Creatinine Ratio Glucose Lactate Calcium Magnesium Iron TIBC % Saturation Transferrin Total Bilirubin AST ALT Alkaline Phosphatase Total Protein Albumin Globulin Albumin/Globulin Ratio Lipase Procalcitonin Urine Color Yellow Urine Appearance Clear Urine pH 5.5 Ur Specific [place] 1.015 Urine Protein Negative Urine Glucose (UA) 3+ Urine Ketones Negative Urine Occult Blood Negative Urine Nitrate Negative Urine Bilirubin Negative Urine Urobilinogen 0.2 Ur Leukocyte Esterase Negative Urine RBC None seen Urine WBC None seen Ur Squamous Epith Cells 1-5 /hpf Urine Bacteria None seen Ur Culture Indicated? Not Reportable Micro UA Comment Not Reportable Urine Test Negative Nasal Screen MRSA (PCR) 02/21/18 02/22/18 02/22/18 20:40 05:11 05:11 WBC 9.1 RBC 3.67 L Hgb 8.6 L Hct 28.0 L MCV 76.2 L MCH 23.3 L MCHC 30.6 RDW 19.0 H Plt Count 516 H Neut % (Auto) 75.9 H Lymph % (Auto) 16.1 L [place] % (Auto) 6.5 Eos % (Auto) 0.7 L Baso % (Auto) 0.8 Neut # (Auto) 6900 H D-Dimer ABG pH ABG pCO2 ABG pO2 ABG HCO3 ABG Total CO2 ABG O2 Saturation ABG Base Excess VBG pH VBG pCO2 VBG pO2 VBG HCO3 VBG Total CO2 VBG O2 Saturation VBG Base Excess FiO2 Sodium 134 L Potassium 4.1 Chloride 99 Carbon Dioxide 25 BUN 14 Creatinine 0.40 L Estimated GFR > 60.0 BUN/Creatinine Ratio 35.0 H Glucose 377 H Lactate Calcium 8.5 Magnesium 2.2 Iron TIBC % Saturation Transferrin Total Bilirubin AST ALT Alkaline Phosphatase Total Protein Albumin Globulin Albumin/Globulin Ratio Lipase Procalcitonin Urine Color Urine Appearance Urine pH Ur Specific [place] Urine Protein Urine Glucose (UA) Urine Ketones Urine Occult Blood Urine Nitrate Urine Bilirubin Urine Urobilinogen Ur Leukocyte Esterase Urine RBC Urine WBC Ur Squamous Epith Cells Urine Bacteria Ur Culture Indicated? Micro UA Comment Urine Test Nasal Screen MRSA (PCR) Positive for mrsa H 02/22/18 05:11 WBC RBC Hgb Hct MCV MCH MCHC RDW Plt Count Neut % (Auto) Lymph % (Auto) [place] % (Auto) Eos % (Auto) Baso % (Auto) Neut # (Auto) D-Dimer ABG pH ABG pCO2 ABG pO2 ABG HCO3 ABG Total CO2 ABG O2 Saturation ABG Base Excess VBG pH VBG pCO2 VBG pO2 VBG HCO3 VBG Total CO2 VBG O2 Saturation VBG Base Excess FiO2 Sodium Potassium Chloride Carbon Dioxide BUN Creatinine Estimated GFR BUN/Creatinine Ratio Glucose Lactate Calcium Magnesium Iron 18 L TIBC 323 % Saturation 6 L Transferrin 245 Total Bilirubin AST ALT Alkaline Phosphatase Total Protein Albumin Globulin Albumin/Globulin Ratio Lipase Procalcitonin Urine Color Urine Appearance Urine pH Ur Specific [place] Urine Protein Urine Glucose (UA) Urine Ketones Urine Occult Blood Urine Nitrate Urine Bilirubin Urine Urobilinogen Ur Leukocyte Esterase Urine RBC Urine WBC Ur Squamous Epith Cells Urine Bacteria Ur Culture Indicated? Micro UA Comment Urine Test Nasal Screen MRSA (PCR) Assessment & Plan (1) Hyperglycemia: Problem details: Will increase basal insulin and continue sliding scale Current visit: No Status: Acute (2) Non-pressure chronic ulcer of other part of right foot with fat layer exposed: Problem details: NO fat layer exposure. This is a chronic ulcer, no treatment indicated Current visit: No Status: Acute (3) Anxiety: Problem details: chronic Current visit: No Status: None (4) Bipolar I disorder: Problem details: chronic Current visit: No Status: None (5) Pneumonia: Problem details: continue levoquin, will switch to po Qualifiers: Aspiration pneumonia type: Laterality: right Lung location: middle lobe of lung Pneumonia type: due to unspecified organism Qualified Code(s): J18.1 - Lobar pneumonia, unspecified organism Current visit: Yes Status: Acute (6) Chronic pain: Current visit: Yes Status: Acute (7) Hyponatremia: Problem details: Free water restriction, d/c IV fluids and follow Current visit: Yes Status: Acute (8) Anemia: Problem details: Anemia of chronic disease Current visit: Yes Status: Acute Plan: Assessment/Plan Narrative: She needs referral to a wound clinic, a respite long term, and referral to a pain clinic. Will switch to po. Hopefully discharge to a long term in 1-2 days.
--- NOTE | 2018-02-22 11:28 | P.PN_ITS ---
Subjective Date Patient Seen: 02/22/18 Interval history: Patient seen and examined. She is well known from her prior admission. Patient reports she came to the ED because the people at [facility] would not help her. She was recently hospitalized for 13 days for pneumonia and treatment of her axillary abscesses. She reports significant pain in the right 3rd digit, axilla, and chest wall. She is aware that she has pneumonia and was recently treated at [facility] for this. We discussed referring her to a wound clinic and pain clinic as we would not have a definitive treatment for her pain at this time. She is agreeable and would like to go to a respite skilled nursing anywhere they are available. She refused the referral the [facility] during her last admission. She is tearful but quickly calms down. Her major issue is pain. She is not hypoxic and is resting comfortably on room air. Exam Vital Signs (past 8 hours): - 02/22/18 03:45 02/22/18 06:25 02/22/18 07:00 Temperature 98.5 F 97.4 F L Pulse Rate 92 H 102 H 96 H Respiratory Rate 19 18 Blood Pressure 133/82 138/93 H 130/72 Pulse Oximetry 96 93 Oxygen Delivery Method Room Air Narrative Exam Narrative: Lungs: Clear To auscultation CV: RRR nl Sl S2 Bilateral Axillary: no erythema, enduration, or redness, patient is tearful with palpation ABD: soft/ non tender non distended Ext: no edema right 3 rd digit is longer than the rest, there is a dry ulcer at the tip, slightly larger but no erythema, warmth or enduration Objective Labs Result Diagrams: 02/22/18 05:11 02/22/18 05:11 Labs: Laboratory Results - last 24 hr 02/21/18 02/21/18 02/21/18 15:45 15:45 15:45 WBC 17.7 H RBC 3.35 L Hgb 7.7 L Hct 25.0 L MCV 74.6 L MCH 23.0 L MCHC 30.8 RDW 18.8 H Plt Count 637 H Neut % (Auto) 90.6 H Lymph % (Auto) 5.9 L [place] % (Auto) 2.8 L Eos % (Auto) 0.1 L Baso % (Auto) 0.6 Neut # (Auto) 28523 H D-Dimer ABG pH ABG pCO2 ABG pO2 ABG HCO3 ABG Total CO2 ABG O2 Saturation ABG Base Excess VBG pH 7.42 H VBG pCO2 42.6 L VBG pO2 35 VBG HCO3 28 VBG Total CO2 29 VBG O2 Saturation 69 L VBG Base Excess 3.0 FiO2 Sodium 133 L Potassium 4.4 Chloride 93 L Carbon Dioxide 25 BUN 20 H Creatinine 0.50 L Estimated GFR > 60.0 BUN/Creatinine Ratio 40.0 H Glucose 408 H Lactate Calcium 9.1 Magnesium Iron TIBC % Saturation Transferrin Total Bilirubin 0.6 AST 34 ALT 22 Alkaline Phosphatase 152 H Total Protein 8.0 Albumin 4.3 Globulin 3.7 Albumin/Globulin Ratio 1.2 Lipase 60 Procalcitonin Urine Color Urine Appearance Urine pH Ur Specific [place] Urine Protein Urine Glucose (UA) Urine Ketones Urine Occult Blood Urine Nitrate Urine Bilirubin Urine Urobilinogen Ur Leukocyte Esterase Urine RBC Urine WBC Ur Squamous Epith Cells Urine Bacteria Ur Culture Indicated? Micro UA Comment Urine Test Nasal Screen MRSA (PCR) 02/21/18 02/21/18 02/21/18 15:45 15:45 15:45 WBC RBC Hgb Hct MCV MCH MCHC RDW Plt Count Neut % (Auto) Lymph % (Auto) [place] % (Auto) Eos % (Auto) Baso % (Auto) Neut # (Auto) D-Dimer 686 H ABG pH ABG pCO2 ABG pO2 ABG HCO3 ABG Total CO2 ABG O2 Saturation ABG Base Excess VBG pH VBG pCO2 VBG pO2 VBG HCO3 VBG Total CO2 VBG O2 Saturation VBG Base Excess FiO2 Sodium Potassium Chloride Carbon Dioxide BUN Creatinine Estimated GFR BUN/Creatinine Ratio Glucose Lactate 1.4 Calcium Magnesium Iron TIBC % Saturation Transferrin Total Bilirubin AST ALT Alkaline Phosphatase Total Protein Albumin Globulin Albumin/Globulin Ratio Lipase Procalcitonin 2.22 H Urine Color Urine Appearance Urine pH Ur Specific [place] Urine Protein Urine Glucose (UA) Urine Ketones Urine Occult Blood Urine Nitrate Urine Bilirubin Urine Urobilinogen Ur Leukocyte Esterase Urine RBC Urine WBC Ur Squamous Epith Cells Urine Bacteria Ur Culture Indicated? Micro UA Comment Urine Test Nasal Screen MRSA (PCR) 02/21/18 02/21/18 02/21/18 16:15 16:15 16:30 WBC RBC Hgb Hct MCV MCH MCHC RDW Plt Count Neut % (Auto) Lymph % (Auto) [place] % (Auto) Eos % (Auto) Baso % (Auto) Neut # (Auto) D-Dimer ABG pH Cancelled ABG pCO2 Cancelled ABG pO2 Cancelled ABG HCO3 Cancelled ABG Total CO2 Cancelled ABG O2 Saturation Cancelled ABG Base Excess Cancelled VBG pH VBG pCO2 VBG pO2 VBG HCO3 VBG Total CO2 VBG O2 Saturation VBG Base Excess FiO2 Cancelled Sodium Potassium Chloride Carbon Dioxide BUN Creatinine Estimated GFR BUN/Creatinine Ratio Glucose Lactate Calcium Magnesium Iron TIBC % Saturation Transferrin Total Bilirubin AST ALT Alkaline Phosphatase Total Protein Albumin Globulin Albumin/Globulin Ratio Lipase Procalcitonin Urine Color Yellow Urine Appearance Clear Urine pH 5.5 Ur Specific [place] 1.015 Urine Protein Negative Urine Glucose (UA) 3+ Urine Ketones Negative Urine Occult Blood Negative Urine Nitrate Negative Urine Bilirubin Negative Urine Urobilinogen 0.2 Ur Leukocyte Esterase Negative Urine RBC None seen Urine WBC None seen Ur Squamous Epith Cells 1-5 /hpf Urine Bacteria None seen Ur Culture Indicated? Not Reportable Micro UA Comment Not Reportable Urine Test Negative Nasal Screen MRSA (PCR) 02/21/18 02/22/18 02/22/18 20:40 05:11 05:11 WBC 9.1 RBC 3.67 L Hgb 8.6 L Hct 28.0 L MCV 76.2 L MCH 23.3 L MCHC 30.6 RDW 19.0 H Plt Count 516 H Neut % (Auto) 75.9 H Lymph % (Auto) 16.1 L [place] % (Auto) 6.5 Eos % (Auto) 0.7 L Baso % (Auto) 0.8 Neut # (Auto) 6900 H D-Dimer ABG pH ABG pCO2 ABG pO2 ABG HCO3 ABG Total CO2 ABG O2 Saturation ABG Base Excess VBG pH VBG pCO2 VBG pO2 VBG HCO3 VBG Total CO2 VBG O2 Saturation VBG Base Excess FiO2 Sodium 134 L Potassium 4.1 Chloride 99 Carbon Dioxide 25 BUN 14 Creatinine 0.40 L Estimated GFR > 60.0 BUN/Creatinine Ratio 35.0 H Glucose 377 H Lactate Calcium 8.5 Magnesium 2.2 Iron TIBC % Saturation Transferrin Total Bilirubin AST ALT Alkaline Phosphatase Total Protein Albumin Globulin Albumin/Globulin Ratio Lipase Procalcitonin Urine Color Urine Appearance Urine pH Ur Specific [place] Urine Protein Urine Glucose (UA) Urine Ketones Urine Occult Blood Urine Nitrate Urine Bilirubin Urine Urobilinogen Ur Leukocyte Esterase Urine RBC Urine WBC Ur Squamous Epith Cells Urine Bacteria Ur Culture Indicated? Micro UA Comment Urine Test Nasal Screen MRSA (PCR) Positive for mrsa H 02/22/18 05:11 WBC RBC Hgb Hct MCV MCH MCHC RDW Plt Count Neut % (Auto) Lymph % (Auto) [place] % (Auto) Eos % (Auto) Baso % (Auto) Neut # (Auto) D-Dimer ABG pH ABG pCO2 ABG pO2 ABG HCO3 ABG Total CO2 ABG O2 Saturation ABG Base Excess VBG pH VBG pCO2 VBG pO2 VBG HCO3 VBG Total CO2 VBG O2 Saturation VBG Base Excess FiO2 Sodium Potassium Chloride Carbon Dioxide BUN Creatinine Estimated GFR BUN/Creatinine Ratio Glucose Lactate Calcium Magnesium Iron 18 L TIBC 323 % Saturation 6 L Transferrin 245 Total Bilirubin AST ALT Alkaline Phosphatase Total Protein Albumin Globulin Albumin/Globulin Ratio Lipase Procalcitonin Urine Color Urine Appearance Urine pH Ur Specific [place] Urine Protein Urine Glucose (UA) Urine Ketones Urine Occult Blood Urine Nitrate Urine Bilirubin Urine Urobilinogen Ur Leukocyte Esterase Urine RBC Urine WBC Ur Squamous Epith Cells Urine Bacteria Ur Culture Indicated? Micro UA Comment Urine Test Nasal Screen MRSA (PCR) Assessment & Plan (1) Hyperglycemia: Problem details: Will increase basal insulin and continue sliding scale Current visit: No Status: Acute (2) Non-pressure chronic ulcer of other part of right foot with fat layer exposed: Problem details: NO fat layer exposure. This is a chronic ulcer, no treatment indicated Current visit: No Status: Acute (3) Anxiety: Problem details: chronic Current visit: No Status: None (4) Bipolar I disorder: Problem details: chronic Current visit: No Status: None (5) Pneumonia: Problem details: continue levoquin, will switch to po Qualifiers: Aspiration pneumonia type: Laterality: right Lung location: middle lobe of lung Pneumonia type: due to unspecified organism Qualified Code(s): J18.1 - Lobar pneumonia, unspecified organism Current visit: Yes Status: Acute (6) Chronic pain: Current visit: Yes Status: Acute (7) Hyponatremia: Problem details: Free water restriction, d/c IV fluids and follow Current visit: Yes Status: Acute (8) Anemia: Problem details: Anemia of chronic disease Current visit: Yes Status: Acute Plan: Assessment/Plan Narrative: She needs referral to a wound clinic, a respite skilled nursing, and referral to a pain clinic. Will switch to po. Hopefully discharge to a skilled nursing in 1-2 days.
[2018-02-22] MEDS: INSULIN GLARGINE 100 UNIT/ML 3ML PEN 40 UNIT SUBCUT (12:07)
--- NOTE | 2018-02-22 12:18 | PC.NURSE ---
Day shift: made Dr Lopez aware of the chem BG readings being above 360 for [address] Lopez added a one time dose of 40 units Lantus NOW then that dose to be given at 2100 daily. Pharmacy aware as well. Pt has been eating food with snacks between. Drinking fluids. Good urine output. Call light in reach. Pain present left LE when Pt is OOB.
[2018-02-22] MEDS: ONDANSETRON 4 MG/2 ML INJ IV (12:35)
--- NOTE | 2018-02-22 15:36 | CM.DPC ---
FORMWORK CARPENTER Note: Reviewed chart. (See details of below). Patient aware that she does have untreated substance abuse/mental health issues. FORMWORK CARPENTER met with patient this afternoon to discuss d/c planning. Dr. Lopez mentioned that patient in agreement to inpatient assistance this AM. Patient reports this afternoon that she [place] [facility] [place] medically stable. Patient reports I have business to take care of she is not agreeable to going anywhere other than [facility] to address her legal issues prior to going anywhere. Notified patient that she is not yet medically stable. Patient hopes to be able to leave in AM tomorrow or sooner. Patient has utilized [facility] for rides on several occasions. Notified patient that it is not realistic for her to think she can sleep outside or at [facility] all winter and continue to obtain treatment at [facility] crisis. Patient alert and oriented throughout interview and knows that by continuing this behavior/non-compliance will continue to get her the same results. Patient does report that she has reached out to [facility]. FORMWORK CARPENTER placed call and they do confirm that they did have interaction with patient via [facility] and [facility]. Outcome unknown. FORMWORK CARPENTER will call [facility] Crisis in AM to attempt to obtain additional outcome information # . Case complicated because patient also with h/o non-compliant diabetes. This also needs close monitoring and follow up. As of now patient remains hospitalized today. Patient very concerned about caring for her legal matters. FORMWORK CARPENTER provided patient with [facility], [facility], [place] [facility], and phone number to non-urgent [facility] police department. Encouraged patient to consider one of the following options: 1)inpatient treatment if bed can be found for mental health/substance abuse 2) Call non-urgent [facility] police when medically stable and see if they will provide patient with transportation to see Agriculture Manager on same day. Patient reports that she was told she I have to follow up with county court judge. Patient denies needing assistance from FORMWORK CARPENTER re: court [place] [facility] P: FORMWORK CARPENTER following closely. and RN updated. Possible psychiatric evaluation. 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 No History Provided By Patient Medical Record Has Patient been admitted in last 30 Yes days? Comment Last discharged from [facility] 02-01-2018. Prior Living Arrangements Homeless Household Members none Type of transporation used prior to Public Transportation admit Independent with ADL's Yes: Depends on medical status . Is patient alert and oriented? Yes Needs Assistance With Meal Prep Managing Medications Home Chores / Shopping Caregiver for Another No Comment Patient has been previously enrolled with [facility]. Last seen by [facility] team and CDP in January 2018. [facility] unsure on outcome of last CDP evaluation. Patient/Family Preference Drug/Alcohol Rehab Comment Patient requiring both substance abuse/mental health treatment. Patient with numerous visits to . and surrounding area hospitals with complaints of pain. Patient's treatment plan complicated because she does have h/o non-compliant diabetes and is homeless. Barriers to Discharge Yes Comment IV drug use. Patient homeless. Discharge Plan Drug Rehabilitation Transportation Arrangement Medicaid transportation Referrals Initiated Other Additional Comment Patient requiring inpatient long-term treatment for susbtance abuse and mental health stabilizaiton. Patient continues to come to [facility] and seek treatment for pain managment and DKA. Prior visits patient initially shows interest in treatment and last admit called [facility] for bed. Patient ended up returning to [facility] When discharge occured patient ended up returning to [facility] Comment Reviewed chart. Patient known to this FORMWORK CARPENTER from previous admits to I.. (see notes for details). Spoke with Dr. Lopez this AM. She reports that patient agreeable to treatment . FORMWORK CARPENTER saw patient this afternoon with RN at bedside during a portion of the interview and patient reports that [place] to [place] [facility] [place]. Patient reports that she was told by [facility] that she needs to return to court to see a county court judge for her active 3 warrants. Notified patient that if patient interested in going to inpatient treatment from I.. FORMWORK CARPENTER could attempt to call [facility] and let them know of patient's current status/ situation. Patient made aware that FORMWORK CARPENTER will not call unless patient in agreement. Patient refuses. She reports that she I have to go to [place] from here. I have to see the county court judge before doing anything else. FORMWORK CARPENTER notified MD and she will discuss again with patient and possibly contact Dr. Butler for psychiatric evaluation. It is very clear that patient is not medically complaint and suffers from untreated mental health/substance abuse. Patient currently also homeless. FORMWORK CARPENTER placed call to check to see if patient [facility] enrolled. They do report patient previously enrolled ( early 2017) and they show record of interaction with [facility] and [facility] in January 2018 . They are unclear on outcome. Review Status In Process Please Provide Date Initial DC 02/22/18 Assessment Was Performed Next Review Type Continued Stay Review
--- NOTE | 2018-02-22 20:55 | PC.NURSE ---
Addendum entered by Delia Butler R.N. 02/22/18 22:30: 2200 - Pt requesting to take a shower. IV site covered. Assist into the bathroom with FWW, shower chair available. Original Note: Pt ordered large meal, has been mostly eating on it all evening. Pt now laying in bed picking at her right toe. Pulling at the skin. Pt requesting surgical scissors to remove surrounding skin. Pt state that the wound clinic taught me how to debrid it. Reviewed DM foot uclers, notified that debridement would not be done at this time. Offered a dressing to cover wound and skin that may be catching on linen. Pt state No, then I will just sit her and pick it fucking off. Pt agitated. Encourage pt to leave wound alone. Monitor.
[2018-02-22] MEDS: AMITRIPTYLINE 25 MG TABLET PO (21:44)
[2018-02-23] VITALS: BP 118/63; PULSE 82; RESP 18; TEMP 36.4; O2SAT 94; O2SAT 96
[2018-02-23 05:28] VITALS: BP 111/68; PULSE 91; RESP 16; TEMP 36.5; O2SAT 92
[2018-02-23 05:56] LABS: Blood Urea Nitrogen 25 mg/dL (7-17); Calcium 8.8 mg/dL (8.4-10.2); Carbon Dioxide 24 mmol/L (22-32); Chloride 96 mmol/L (98-107); Estimated Glomerular Filt Rate > 60.0 mL/min (>60); Glucose 470 mg/dL (70-100); HEMOLYSIS < 15 (0-50); Sodium 133 mmol/L (137-145)
[2018-02-23 05:58] LABS: Potassium 5.6 mmol/L (3.4-5.1)
[2018-02-23 06:15] VITALS: BP 111/68; PULSE 91
[2018-02-23] MEDS: cloNIDine 0.1 MG TABLET PO ×3 (06:15→17:34)
--- NOTE | 2018-02-23 06:52 | PC.NURSE ---
2350 Called to patient's room to look at IV site. She states it got caught on my gown. Midline dressing completely removed and catheter visibly dislodged about half way. Attempted to flush and rethread into vein unsuccessful. IV removed the rest of the way, catheter intact. Pt without IV medication orders of fluids. Will monitor for necessity of IV. Plan for discharge today.
--- NOTE | 2018-02-23 07:54 | PM.DS.1 ---
History of Present Illness Date Patient Seen: 02/23/18 Time Patient Seen: 07:54 Chief complaint: Abcess Narrative: 37-year-old female with past medical history of hypertension, insulin-dependent diabetes mellitus type 1, peripheral vascular disease, history of frostbite, fibromyalgia, psychiatric illness (bipolar disorder, PTSD, ADHD, depression), methamphetamine abuse, tobacco dependence, diabetic foot ulcer that is chronic presented to emergency department with pain in bilateral axillary regions. Patient was recently hospitalized at [facility] at the end of January, during which time bilateral axillary abscesses were drained and she was treated for DKA. Patient refused retirement placement at that time and was discharged. Once discharged, patient was again hospitalized at [facility] for 13 days for DKA, pneumonia, and foot pain. At the time of the admission, patient reported no fever or chills, but did have sporadic cough. No mucus production. She did report dyspnea on exertion. Patient also complained of bilateral axillary pain, and pain in her 3rd right toe without drainage. Discharge Providers Date of admission: 02/21/18 20:04 Consults: 02/21/18 20:58 Consult to Pet Technologist Routine Comment: d/c planning Discharge provider: Iliana Avalos MD Discharge Date: 02/23/18 Summary Discharge Diagnosis: Pneumonia, resolving on Levaquin Bilateral axillary pain from previous incision and drainage, no active abscess Right 3rd toe chronic ulcer without drainage Methamphetamine dependance PTSD ADHD Depression Bipolar disorder Fibromyalgia Tobacco abuse Hypertension Hyperglycemia Hospital Course: In the emergency department, patient's vital signs were stable. Lab workup revealed WBCs of 17.7, hemoglobin 7.7, hematocrit 25, platelets 637. Blood glucose worse 408. Sodium was 133, likely pseudohyponatremia from elevated sugar.. D-dimer was elevated at 686. CTA Chest revealed no PE, however there was right middle lobe confluent consolidation with air bronchograms. No pleural effusion or pneumothorax was seen. ABG showed pH 7.43, CO2 42, PO2 35, which seemed to be venous draw. Blood cultures x2 were drawn. Patient was saturating 95% on room air. Patient was admitted to ICU. Midline was placed. Patient was continued on Levaquin for her pneumonia. Bactrim was initially started for axillary wounds and right 3rd toe ulcer, however stopped due to chronicity. Patient was given IV fluids, however was stopped due to hyponatremia. Blood glucose was controlled with patient's home insulin regimen and carbohydrate consistent diet. Peripheral neuropathy was treated with resumption of gabapentin. Hemoglobin levels were monitored, and patient was hemodynamically stable. Patient's condition overall has improved during the hospital admission, however blood glucose continued to be elevated, which required adjustment of insulin regimen. Patient pulled out her midline on the night of 02/23, and no further IV therapy was able to be given. Patient initially agreed to go to retirement, however refused on the day of the discharge, stating that she needed to take care of some take its before she will go to retirement. She wished to be discharged on her own cognisance. Patient will be discharged on p.o. Levaquin to finish a 14 day course for her pneumonia. She will also be sent home with her home insulin regimen of insulin glargine 70 units b.i.d. and insulin as part 10 units t.i.d. On the day of the discharge, patient was also noted to have hyperkalemia with potassium of 5.6. Given that she had no IV access and refused to get 1, patient was given Kayexalate 15 g p.o. x1. Potassium levels were repeated at 1pm which slightly improved to 5.2 (BG remained high as patient continued to eat snacks). Patient will get one more dose of Kayexalate prior to discharge. Blood glucose continued to increase, and patient was given correction based on High dose sliding scale. Status at Discharge Functional status at discharge: independent ambulation Overall status at discharge: patient is back to baseline Time Spent with Patient Less than 30 minutes Exam Vital Signs (past 8 hours): - 02/23/18 00:00 02/23/18 05:28 02/23/18 06:15 Temperature 97.6 F 97.7 F Pulse Rate 82 91 H 91 H Respiratory Rate 18 16 Blood Pressure 118/63 111/68 111/68 Pulse Oximetry 96 92 Oxygen Delivery Method Room Air Narrative Exam Narrative: Constitutional: NAD, AAOx3 Neurologic: no focal neurological deficits Psychiatric: Mood stable, patient is calm Head: NC, AT Eyes: pupils equal round and reactive, EOMI, gaze conjugate, no drainage Neck: no masses, lymphadenopathy, or JVD Chest / Respiratory: equal chest rise, unlabored respiratory effort, no tachypnea diminished Axilla: Right axilla incision is greater than that of the left. no packing present. No swelling or redness Heart / CV: S1S2, no murmur Abdomen / GI: round, NT, ND, + BS, no organomegaly : no suprapubic tenderness Peripheral / Vascular: warm to touch, DP 1+ left and 2+ right; both extremities warm to touch, no edema or erythema of foot, no evident demarcation noted right foot, distal phalanx (3rd) - edema, erythema, no drainage (chronic for patient), ulcer w/ scab present, tenderness to palpation of phalanx Musc: full ROM of upper and lower extremities, adequate muscle tone and bulk Skin: no ecchymosis or suspicious lesions / ulcers Objective Labs Result Diagrams: 02/22/18 05:11 02/23/18 13:14 Labs: Laboratory Results - last 24 hr 02/22/18 02/23/18 05:11 05:20 WBC 9.1 RBC 3.67 L Hgb 8.6 L Hct 28.0 L MCV 76.2 L MCH 23.3 L MCHC 30.6 RDW 19.0 H Plt Count 516 H Neut % (Auto) 75.9 H Lymph % (Auto) 16.1 L [place] % (Auto) 6.5 Eos % (Auto) 0.7 L Baso % (Auto) 0.8 Neut # (Auto) 6900 H Sodium 133 L Potassium 5.6 H D Chloride 96 L Carbon Dioxide 24 BUN 25 H Creatinine 0.50 L Estimated GFR > 60.0 BUN/Creatinine Ratio 50.0 H Glucose 470 H Calcium 8.8 Discharge Plan Discharge Plan Patient Disposition: Released, Other I certify the postop hospital usp care is medically necessary on a continuing basis for any conditions for which he/ she received care during this hospitalization.: No Discharge Med Rec/Prescriptions Prescriptions: Continue duloxetine 20 MG capsule,delayed release(DR/EC) 60 mg PO DAILY Qty: 0 RF: 0 Syringes: 1cc Insulin Syringes with [place] 1 syr SQ 5XD Qty: 100 RF: 3 gabapentin [Neurontin] 600 MG tablet 600 mg PO TID Qty: 90 RF: 2 amitriptyline 25 mg tablet 25 mg PO BEDTIME RF: 0 cilostazol 100 mg tablet 100 mg PO BID RF: 0 aspirin 81 mg tablet,delayed release (DR/EC) 81 mg PO DAILY RF: 0 clonidine HCl 0.1 MG tablet 0.1 mg PO BID RF: 0 sulfamethoxazole-trimethoprim 800-160 mg tablet 2 tab PO BID RF: 0 metoprolol succinate 25 mg tablet extended release 24 hr 25 mg PO BID RF: 0 ibuprofen 600 mg tablet 600 mg PO Q6H PRN (Reason: pain, mild) RF: 0 metoclopramide HCl 10 mg tablet 10 mg PO ACHS RF: 0 hydromorphone 2 mg tablet 2 mg PO DAILY PRN (Reason: Pain, Severe) RF: 0 levofloxacin 250 mg tablet 500 mg PO DAILY Qty: 4 RF: 0 Changed insulin glargine [Lantus U-100 Insulin] 100 unit/mL solution 70 unit SUBCUT BID Qty: 0 RF: 0 insulin aspart U-100 [Novolog Flexpen U-100 Insulin] 100 unit/mL insulin pen 10 unit SUBCUT TID Qty: 0 RF: 0 Follow up/Referrals: Rick Reid MD [Physician] - 03/02/18 8:27 am (Patient needs wounds assessed/treated) Discharge Orders: Discharge (Order); Ordered 02/23/18 Ordered By: Iliana Avalos Provider Discharge Instructions Diet: Carb-consistent/Diabetic Liquid consistency: Normal/Thin Food texture: Regular Discharge Data Attending Provider: Dante Garcia Admjosep Date/Time: 02/21/18 20:04
--- NOTE | 2018-02-23 08:16 | P.DS_ITS ---
History of Present Illness Date Patient Seen: 02/23/18 Time Patient Seen: 07:54 Chief complaint: Abcess Narrative: 37-year-old female with past medical history of hypertension, insulin -dependent diabetes mellitus type 1, peripheral vascular disease, history of frostbite, fibromyalgia, psychiatric illness (bipolar disorder, PTSD, ADHD, depression), methamphetamine abuse, tobacco dependence, diabetic foot ulcer that is chronic presented to emergency department with pain in bilateral axillary regions. Patient was recently hospitalized at [facility] at the end of January, during which time bilateral axillary abscesses were drained and she was treated for DKA. Patient refused prison placement at that time and was discharged. Once discharged, patient was again hospitalized at [facility] for 13 days for DKA, pneumonia, and foot pain. At the time of the admission, patient reported no fever or chills, but did have sporadic cough. No mucus production. She did report dyspnea on exertion. Patient also complained of bilateral axillary pain, and pain in her 3rd right toe without drainage. Discharge Providers Date of admission: 02/21/18 20:04 Consults: 02/21/18 20:58 Consult to Circular Ripsaw Operator Routine Comment: d/c planning Discharge provider: Iliana Avalos MD Discharge Date: 02/23/18 Summary Discharge Diagnosis: Pneumonia, resolving on Levaquin Bilateral axillary pain from previous incision and drainage, no active abscess Right 3rd toe chronic ulcer without drainage Methamphetamine dependance PTSD ADHD Depression Bipolar disorder Fibromyalgia Tobacco abuse Hypertension Hyperglycemia Hospital Course: In the emergency department, patient's vital signs were stable. Lab workup revealed WBCs of 17.7, hemoglobin 7.7, hematocrit 25, platelets 637. Blood glucose worse 408. Sodium was 133, likely pseudohyponatremia from elevated sugar.. D-dimer was elevated at 686. CTA Chest revealed no PE, however there was right middle lobe confluent consolidation with air bronchograms. No pleural effusion or pneumothorax was seen. ABG showed pH 7.43, CO2 42, PO2 35, which seemed to be venous draw. Blood cultures x2 were drawn. Patient was saturating 95% on room air. Patient was admitted to ICU. Midline was placed. Patient was continued on Levaquin for her pneumonia. Bactrim was initially started for axillary wounds and right 3rd toe ulcer, however stopped due to chronicity. Patient was given IV fluids, however was stopped due to hyponatremia. Blood glucose was controlled with patient's home insulin regimen and carbohydrate consistent diet. Peripheral neuropathy was treated with resumption of gabapentin. Hemoglobin levels were monitored, and patient was hemodynamically stable. Patient's condition overall has improved during the hospital admission, however blood glucose continued to be elevated, which required adjustment of insulin regimen. Patient pulled out her midline on the night of 02/23, and no further IV therapy was able to be given. Patient initially agreed to go to prison, however refused on the day of the discharge, stating that she needed to take care of some take its before she will go to prison. She wished to be discharged on her own cognisance. Patient will be discharged on p.o. Levaquin to finish a 14 day course for her pneumonia. She will also be sent home with her home insulin regimen of insulin glargine 70 units b.i.d. and insulin as part 10 units t.i.d. On the day of the discharge, patient was also noted to have hyperkalemia with potassium of 5.6. Given that she had no IV access and refused to get 1, patient was given Kayexalate 15 g p.o. x1. Potassium levels were repeated at 1pm which slightly improved to 5.2 (BG remained high as patient continued to eat snacks). Patient will get one more dose of Kayexalate prior to discharge. Blood glucose continued to increase, and patient was given correction based on High dose sliding scale. Status at Discharge Functional status at discharge: independent ambulation Overall status at discharge: patient is back to baseline Time Spent with Patient Less than 30 minutes Exam Vital Signs (past 8 hours): - 02/23/18 00:00 02/23/18 05:28 02/23/18 06:15 Temperature 97.6 F 97.7 F Pulse Rate 82 91 H 91 H Respiratory Rate 18 16 Blood Pressure 118/63 111/68 111/68 Pulse Oximetry 96 92 Oxygen Delivery Method Room Air Narrative Exam Narrative: Constitutional: NAD, AAOx3 Neurologic: no focal neurological deficits Psychiatric: Mood stable, patient is calm Head: NC, AT Eyes: pupils equal round and reactive, EOMI, gaze conjugate, no drainage Neck: no masses, lymphadenopathy, or JVD Chest / Respiratory: equal chest rise, unlabored respiratory effort, no tachypnea diminished Axilla: Right axilla incision is greater than that of the left. no packing present. No swelling or redness Heart / CV: S1S2, no murmur Abdomen / GI: round, NT, ND, + BS, no organomegaly : no suprapubic tenderness Peripheral / Vascular: warm to touch, DP 1+ left and 2+ right; both extremities warm to touch, no edema or erythema of foot, no evident demarcation noted right foot, distal phalanx (3rd) - edema, erythema, no drainage (chronic for patient), ulcer w/ scab present, tenderness to palpation of phalanx Musc: full ROM of upper and lower extremities, adequate muscle tone and bulk Skin: no ecchymosis or suspicious lesions / ulcers Objective Labs Result Diagrams: 02/22/18 05:11 02/23/18 13:14 Labs: Laboratory Results - last 24 hr 02/22/18 02/23/18 05:11 05:20 WBC 9.1 RBC 3.67 L Hgb 8.6 L Hct 28.0 L MCV 76.2 L MCH 23.3 L MCHC 30.6 RDW 19.0 H Plt Count 516 H Neut % (Auto) 75.9 H Lymph % (Auto) 16.1 L [place] % (Auto) 6.5 Eos % (Auto) 0.7 L Baso % (Auto) 0.8 Neut # (Auto) 6900 H Sodium 133 L Potassium 5.6 H D Chloride 96 L Carbon Dioxide 24 BUN 25 H Creatinine 0.50 L Estimated GFR > 60.0 BUN/Creatinine Ratio 50.0 H Glucose 470 H Calcium 8.8 Discharge Plan Discharge Plan Patient Disposition: Released, Other I certify the postop hospital senior care care is medically necessary on a continuing basis for any conditions for which he/ she received care during this hospitalization.: No Discharge Med Rec/Prescriptions Prescriptions: Continue duloxetine 20 MG capsule,delayed release(DR/EC) 60 mg PO DAILY Qty: 0 RF: 0 Syringes: 1cc Insulin Syringes with [place] 1 syr SQ 5XD Qty: 100 RF: 3 gabapentin [Neurontin] 600 MG tablet 600 mg PO TID Qty: 90 RF: 2 amitriptyline 25 mg tablet 25 mg PO BEDTIME RF: 0 cilostazol 100 mg tablet 100 mg PO BID RF: 0 aspirin 81 mg tablet,delayed release (DR/EC) 81 mg PO DAILY RF: 0 clonidine HCl 0.1 MG tablet 0.1 mg PO BID RF: 0 sulfamethoxazole-trimethoprim 800-160 mg tablet 2 tab PO BID RF: 0 metoprolol succinate 25 mg tablet extended release 24 hr 25 mg PO BID RF: 0 ibuprofen 600 mg tablet 600 mg PO Q6H PRN (Reason: pain, mild) RF: 0 metoclopramide HCl 10 mg tablet 10 mg PO ACHS RF: 0 hydromorphone 2 mg tablet 2 mg PO DAILY PRN (Reason: Pain, Severe) RF: 0 levofloxacin 250 mg tablet 500 mg PO DAILY Qty: 4 RF: 0 Changed insulin glargine [Lantus U-100 Insulin] 100 unit/mL solution 70 unit SUBCUT BID Qty: 0 RF: 0 insulin aspart U-100 [Novolog Flexpen U-100 Insulin] 100 unit/mL insulin pen 10 unit SUBCUT TID Qty: 0 RF: 0 Follow up/Referrals: Rick Reid MD [Physician] - 03/02/18 8:27 am (Patient needs wounds assessed/ treated) Discharge Orders: Discharge (Order); Ordered 02/23/18 Ordered By: Iliana Avalos Provider Discharge Instructions Diet: Carb-consistent/Diabetic Liquid consistency: Normal/Thin Food texture: Regular Discharge Data Attending Provider: Dante Garcia Admjosep Date/Time: 02/21/18 20:04
[2018-02-23 08:32] VITALS: BP 102/56; PULSE 80; RESP 16; TEMP 37.2; O2SAT 92
[2018-02-23] MEDS: TRIMETH/SULFA 160/800 (DS) TABLET 2 TAB PO (08:39)
[2018-02-23] MEDS: INSULIN ASPART 100 UNIT/ML INSULN PEN SUBCUT ×4 (08:40→15:22)
[2018-02-23] MEDS: DULOXETINE 30 MG CAPSULE 60 MG PO (08:40)
[2018-02-23] MEDS: ASPIRIN EC 81 MG TABLET PO (08:40)
[2018-02-23] MEDS: GABAPENTIN 600 MG TABLET PO ×2 (08:40→14:46)
[2018-02-23] MEDS: IBUPROFEN 600 MG TABLET PO ×2 (08:43→14:45)
[2018-02-23] MEDS: NICOTINE 14 PATCH 14 MG TOP (08:43)
[2018-02-23] MEDS: HYDROMORPHONE 2 MG TABLET PO (08:45)
[2018-02-23] MEDS: ACETAMINOPHEN 325 MG TABLET 650 MG PO ×2 (08:46→14:44)
[2018-02-23] MEDS: SODIUM POLYSTYRENE SULFON/SORB 15 GM/60 ML CUP PO ×2 (08:47→14:21)
[2018-02-23] MEDS: levoFLOXacin 250 MG TABLET 750 MG PO (08:48)
[2018-02-23 13:38] LABS: Blood Urea Nitrogen 24 mg/dL (7-17); Calcium 8.8 mg/dL (8.4-10.2); Carbon Dioxide 23 mmol/L (22-32); Chloride 93 mmol/L (98-107); Estimated Glomerular Filt Rate > 60.0 mL/min (>60); HEMOLYSIS < 15 (0-50); Potassium 5.2 mmol/L (3.4-5.1); Sodium 132 mmol/L (137-145)
--- NOTE | 2018-02-23 13:38 | PC.NURSE ---
pt initially cooperative with care but requesting frequent snacks and pain rx- medicated with everything available to her per MD order this am and then requesting more approx 4 hours later c/o bilat foot pain- instructed about dosage schedule and repositioned her and applied warm blanket to feet- her attention diverted upon arrival of meal and she was reasonable. Upon arrival of ASSESSMENT TECHNICIAN - pt began refusing all courses of care - and became verbally aggressive to both ASSESSMENT TECHNICIAN and this RN stating GET THE FUCK OUT OF HERE- staff left room at this time. repeat labs pending and telephone call made to her friend jessa per pt request (MESSAGE LEFT) -UPDATE TO DR. HEREDIA
[2018-02-23 13:58] LABS: Glucose 576 mg/dL (70-100)
--- NOTE | 2018-02-23 14:38 | CM.DPNOTE ---
SPIRAL RUNNER Note continued: Reviewed chart. Received notification from MD in AM rounds that patient will most likely be medically cleared after afternoon labs drawn today at 1:00pm. SPIRAL RUNNER placed call to [facility] to attempt to obtain additional information from them on any previous detainments for this patient. Prior to call met with patient this afternoon and again explained SPIRAL RUNNER role. Patient alert and oriented at time of visit. Patient reports that her plan remains to go to court today but she is frustrated that she has not yet been discharged. Plus patient reports being agitated that discharge prescriptions have been written but none for pain medication. Patient reports that MD yesterday, told her that she would receive a prescription for pain medication upon d/c. RN confirmed with MD today and patient not getting prescribed narcotics. As soon as patient informed that she would not be getting prescription for narcotics and asked if she would like SPIRAL RUNNER to assist with placement for mental health/substance abuse patient stated to SPIRAL RUNNER with RN in room Get the fuck out. Left patient with resources for [facility]. Patient adamantly refuses to discharge to any type of treatment facility and or [facility]. Patient continues to report that she needs to go to [facility] to see wildlife photographer in court. Patient has been provided with non-urgent [place] police line for assistance with transport. Patient has no residence and is unwilling to allow SPIRAL RUNNER with option of sending her to crisis and or chcf. Patient reports that I will figure it out. Patient denies any suicidal or homicidal thoughts to SPIRAL RUNNER and RN during interview. MD aware of the above and does not plan to cancel discharge. Patient continues to be treated for uncontrolled diabetes with hopes that once Blood Sugar comes downs she can go. Patient aware. Spoke with James at [facility] Crisis dispatch ph# [phone] re: above. He reports that patient has no known previous recorded detainments. Provided James with update of patient's status and h/o untreated mental illness and substance abuse. Also informed [facility] of repeated trips to the hospital and attempts made to get patient enrolled in services. History has shown that patient initially agreeable to treatment assistance and then changes her mind day of discharge. All information taken by [facility] but they do not feel that the above information along with MD notes support sending [facility]MHP out to [facility] for non-voluntary detainment purposes. Therefore, unless status/behavior changes or patient shows signs of suicidal/homicidal ideation [facility] will not come to do assessment for detainment. RN and staff instructed to call [facility] Crisis # if anything at all changes. Otherwise, patient to discharge to where she chooses at time of d/c. Community resources have been provided. YNES Alicia Discharge Planning/Care Management CM Discharge Assessment Start: 02/22/18 15:08 Freq: Status: Active Protocol: Document 02/22/18 15:09 KJS (Rec: 02/22/18 15:36 KJS [id number]) Discharge Planning Assessment Assigned Side Puller YNES Alicia Contact Information None documented Advance Directives? No History Provided By Patient Medical Record Has Patient been admitted in last 30 Yes days? Comment Last discharged from [facility] 02-01-2018. Prior Living Arrangements Homeless Household Members none Type of transporation used prior to Public Transportation admit Independent with ADL's Yes: Depends on medical status . Is patient alert and oriented? Yes Needs Assistance With Meal Prep Managing Medications Home Chores / Shopping Caregiver for Another No Comment Patient has been previously enrolled with [facility]. Last seen by [facility] team and [facility]MHP in January 2018. [facility] unsure on outcome of last CDP evaluation. Patient/Family Preference Drug/Alcohol Rehab Comment Patient requiring both substance abuse/mental health treatment. Patient with numerous visits to [facility] and surrounding area hospitals with complaints of pain. Patient's treatment plan complicated because she does have h/o non-compliant diabetes and is homeless. Barriers to Discharge Yes Comment IV drug use. Patient homeless. Discharge Plan Drug Rehabilitation Transportation Arrangement Medicaid transportation Referrals Initiated Other Additional Comment Patient requiring inpatient long-term treatment for susbtance abuse and mental health stabilizaiton. Patient continues to come [facility] and seek treatment for pain managment and DKA. Prior visits patient initially shows interest in treatment and last admit called [facility] for bed. Patient ended up returning to [facility] When discharge occured patient ended up returning to [facility] Comment Reviewed chart. Patient known to this SPIRAL RUNNER from previous admits to [facility] (see notes for details). Spoke with Dr. Lopez this AM. She reports that patient agreeable to treatment . SPIRAL RUNNER saw patient this afternoon with RN at bedside during a portion of the interview and patient reports that she wants to return [place] [facility] to go to court. Patient reports that she was told by [facility] that she needs to return to court to see a wildlife photographer for her active 3 warrants. Notified patient that if patient interested in going to inpatient treatment from [facility] SPIRAL RUNNER could attempt to call [facility] and let them know of patient's current status/ situation. Patient made aware that SPIRAL RUNNER will not call unless patient in agreement. Patient refuses. She reports that she I have to go to [place] from here. I have to see the wildlife photographer before doing anything else. SPIRAL RUNNER notified MD and she will discuss again with patient and possibly contact Dr. Butler for psychiatric evaluation. It is very clear that patient is not medically complaint and suffers from untreated mental health/substance abuse. Patient currently also homeless. SPIRAL RUNNER placed call to check to see if patient [facility] enrolled. They do report patient previously enrolled ( early 2017) and they show record of interaction with [facility] and [facility] in January 2018 . They are unclear on outcome. Review Status In Process Please Provide Date Initial DC 02/22/18 Assessment Was Performed Next Review Type Continued Stay Review Document 02/23/18 14:37 KJS (Rec: 02/23/18 14:38 KJS [id number]) Discharge Planning Assessment Assigned Side Puller YNES Alicia Contact Information None documented Advance Directives? No History Provided By Patient Medical Record Has Patient been admitted in last 30 Yes days? Comment Last discharged from [facility] 02-01-2018. Prior Living Arrangements Homeless Household Members none Type of transporation used prior to Public Transportation admit Independent with ADL's Yes: Depends on medical status . Is patient alert and oriented? Yes Needs Assistance With Meal Prep Managing Medications Home Chores / Shopping Caregiver for Another No Comment Patient has been previously enrolled with [facility]. Last seen by [facility] team and [facility] in January 2018. [facility] unsure on outcome of last CDM[facility] evaluation. Patient/Family Preference Drug/Alcohol Rehab Comment Patient requiring both substance abuse/mental health treatment. Patient with numerous visits to [facility] and surrounding area hospitals with complaints of pain. Patient's treatment plan complicated because she does have h/o non-compliant diabetes and is homeless. Barriers to Discharge Yes Comment IV drug use. Patient homeless. Discharge Plan Drug Rehabilitation Transportation Arrangement Medicaid transportation Referrals Initiated Other Additional Comment Patient requiring inpatient long-term treatment for susbtance abuse and mental health stabilizaiton. Patient continues to come [facility] and seek treatment for pain managment and DKA. Prior visits patient initially shows interest in treatment and last admit called [facility] for bed. Patient ended up returning to [facility] When discharge occured patient ended up returning to [facility] Comment Reviewed chart. Patient known to this SPIRAL RUNNER from previous admits to [facility] (see notes for details). Spoke with Dr. Lopez this AM. She reports that patient agreeable to treatment . SPIRAL RUNNER saw patient this afternoon with RN at bedside during a portion of the interview and patient reports that she wants to return [place] [facility] to [place]. Patient reports that she was told by [facility] that she needs to return to court to see a wildlife photographer for her active 3 warrants. Notified patient that if patient interested in going to inpatient treatment from [facility] SPIRAL RUNNER could attempt to call [facility] and let them know of patient's current status/ situation. Patient made aware that SPIRAL RUNNER will not call unless patient in agreement. Patient refuses. She reports that she I have to go to [place] from here. I have to see the wildlife photographer before doing anything else. SPIRAL RUNNER notified MD and she will discuss again with patient and possibly contact Dr. Butler for psychiatric evaluation. It is very clear that patient is not medically complaint and suffers from untreated mental health/substance abuse. Patient currently also homeless. SPIRAL RUNNER placed call to check to see if patient [facility] enrolled. They do report patient previously enrolled ( early 2017) and they show record of interaction with [facility] and [facility] in January 2018 . They are unclear on outcome. Review Status In Process Please Provide Date Initial DC 02/22/18 Assessment Was Performed Next Review Type Continued Stay Review
--- NOTE | 2018-02-23 17:30 | PC.NURSE ---
8920- Patient will be discharged after dinner. Patient is aware of the plan. Patient has not been able to reach anyone to help her get to [place]. Patient attempted to get assist from the Crisis Care people but they do not provide ride services. Discussed situation with Devante Kaplan RN who is in charge of the campus today. Devante did authorize a cab voucher for patient. Will proceed with discharge after patient finishes dinner.
--- NOTE | 2018-02-23 18:03 | PC.NURSE ---
1800- Discharge instruction given and patient verbalizes understanding. Patient will take a cab to [place]. Patient was alert oriented and cooperative with care. Patient was stable at the time of discharge.
== END 2018-02-23 18:02 | disposition home or self-care (01) | DRG 139 ==
LOC: ED 15:29 → AC 20:05 → ICU 20:29
PROVIDERS: Internal Medicine; Admitting Provider Nurse Practitioner Gerontology; Emergency Provider Nurse Practitioner Family; Visit Provider Nurse Practitioner Gerontology
DX: J18.0 Bronchopneumonia, unspecified organism (principal); R09.02 Hypoxemia; F15.20 Other stimulant dependence, uncomplicated; D64.9 Anemia, unspecified; E10.65 Type 1 diabetes mellitus with hyperglycemia; G89.29 Other chronic pain; E87.1 Hypo-osmolality and hyponatremia; E87.5 Hyperkalemia; E10.621 Type 1 diabetes mellitus with foot ulcer; E10.51 Type 1 diabetes mellitus with diabetic peripheral angiopathy without gangrene; I10 Essential (primary) hypertension; F31.9 Bipolar disorder, unspecified; F17.210 Nicotine dependence, cigarettes, uncomplicated; Z59.0 Homelessness; M79.7 Fibromyalgia; R00.0 Tachycardia, unspecified; F41.9 Anxiety disorder, unspecified; F90.9 Attention-deficit hyperactivity disorder, unspecified type; L97.512 Non-pressure chronic ulcer of other part of right foot with fat layer exposed
CPT/HCPCS: 36415; 36591; 36600; 71045; 71275; 80048; 80053; 81001; 81003; 81025; 82805; 82962; 83540; 83550; 83605; 83690; 83735; 84145; 85025; 85379; 87040; 87797; 96361; 96365; 96375; 96376; 99285; 99406; J1170; J1956; J2405